=== PATIENT | male | born 1960 | race Asian ===

== ENCOUNTER 2019-05-25 23:55 | Inpatient (IN) | payer MEDICAID ==
[~2019-05-25] VITALS: Ht 165.1 cm; Wt 86.4 kg
[~2019-05-25 23:55] MED LIST: ATOR20TA66 PO; FENO48TA15 PO; METF500T PO; MIRT30TA8 PO; PIOG15TA8 PO; RISP2TAB44 PO; ZES10T PO
[2019-05-26] VITALS (14 sets, daily range): BP systolic 106–136; BP diastolic 55–75
[2019-05-26 00:30] LABS: BASOPHILS % (AUTO) 0.1 % (0-1); EOSINOPHILS % (AUTO) 0.1 % (0-6); HEMATOCRIT 24.7 % (42.0-52.0); HEMOGLOBIN 8.1 g/dl (14.0-17.9); LYMPHOCYTES # (AUTO) 2.8 X10'3 (1.1-4.8); LYMPHOCYTES % (AUTO) 14.8 % (21-51); MEAN CORPUSCULAR HGB CONC 32.9 g/dL (33.0-36.5); MEAN PLATELET VOLUME 7.5 FL (7.4-10.4); MONOCYTES # (AUTO) 0.5 X10'3 (0-0.9); MONOCYTES % (AUTO) 2.6 % (2-12); NEUTROPHILS # (AUTO) 15.4 X10'3 (1.8-7.7); NEUTROPHILS % (AUTO) 82.4 % (42-75); PLATELET COUNT 185 X10'3 (140-440); RED BLOOD COUNT 2.71 X10'6 (4.70-6.10); RED CELL DISTRIBUTION WIDTH 14.2 % (11.5-14.5); WHITE BLOOD COUNT 18.6 X10'3 (4.5-11.0)
[2019-05-26 00:43] LABS: ALANINE AMINOTRANSFERASE 44 U/L (12-78); ALBUMIN 2.5 G/DL (3.4-5.0); ALKALINE PHOSPHATASE 53 IU/L (46-116); ANION GAP 9 (8-16); ASPARTATE AMINO TRANSFERASE 14 U/L (10-37); BILIRUBIN,TOTAL 0.4 MG/DL (0.1-1.0); BLOOD UREA NITROGEN 41 MG/DL (7-18); BUN/CREATININE RATIO 33.6 (5.4-32.0); CHLORIDE 109 MMOL/L (99-107); CREATININE 1.22 MG/DL (0.60-1.10); GLUCOSE 381 MG/DL (70-104); LIPASE 129 U/L (73-393); POTASSIUM 4.7 MMOL/L (3.5-5.1); SODIUM 140 MMOL/L (135-145); TOTAL CARBON DIOXIDE 21.7 MMOL/L (24-32); eGFR 61 ML/MIN
[2019-05-26] MEDS ORDERED: TEMA15CA5 PO (00:52)
[2019-05-26] MEDS ORDERED: METF500T PO (00:52)
[2019-05-26] MEDS ORDERED: FERR325T32 PO ×2 (00:52→11:34)
[2019-05-26 01:14] LABS: CLARITY,URINE CLEAR (Clear); COLOR,URINE YELLOW (Yellow); GLUCOSE, URINE 500 mg/dl (Neg); KETONES,URINE NEGATIVE (Neg); LEUKOCYTE ESTERASE ,URINE NEGATIVE (Neg); NITRITES, URINE NEGATIVE (Neg); OCCULT BLOOD,URINE NEGATIVE (Neg); PH,URINE 5.5 (4.8-8.0); PROTEIN,URINE TRACE mg/dl (Neg); UROBILINOGEN,URINE 0.2 E.U/dL (0.2-1.0)
[2019-05-26] MEDS ORDERED: morphine 4 MG/ML inj SYRINge IV ONE (01:15)
[2019-05-26] MEDS ORDERED: ondansetron/PF 4mg/2ml inj IV ONE (01:15)
[2019-05-26] MEDS ORDERED: normal saline 1000ML IV soln IVB ONE (01:15)
[2019-05-26] MEDS ORDERED: tranexamic acid 100mg/ml inj. IV ONE (01:15)
[2019-05-26] MEDS ORDERED: pantoprazole 40 MG vial IV ONE (01:15)
[2019-05-26 01:16] LABS: UA COLLECTION TYPE URINAL
[2019-05-26 01:19] LABS: BACTERIA,URINE 1+ /HPF (Neg); MUCUS STRANDS FEW /LPF (Neg); RBC,URINE NONE SEEN /HPF (0-2); SQUAMOUS EPITHELIAL CELL,UR FEW /LPF (FEW)
[2019-05-26 01:20] LABS: FINE GRANULAR CAST 0-3 /LPF (NEGATIVE); HYALINE CASTS 0-3 /LPF (NEGATIVE)
[2019-05-26 01:35] LABS: MAGNESIUM 1.8 MG/DL (1.5-2.4); TROPONIN I < 0.04 NG/ML (0.0-0.05)
[2019-05-26] MEDS ORDERED: ondansetron/PF 4mg/2ml inj IV PRN (01:50)
[2019-05-26] MEDS ORDERED: potassium Cl 20 mEq SR tablet PO PRN (01:50)
[2019-05-26] MEDS ORDERED: acetaminophen 325mg tablet PO PRN ×2 (01:50)
[2019-05-26] MEDS ORDERED: magnesium Cl slow-release 64mg tablet PO PRN (01:50)
[2019-05-26] MEDS ORDERED: magnesium 4gm in 100ml NS 100 ML IV PRN (01:50)
[2019-05-26] MEDS ORDERED: potassium CL 10mEq/100ml bag 100 ML IV PRN ×2 (01:50)
[2019-05-26] MEDS ORDERED: mag hydrox/Alum hydrox/simeth 30ml oral suspension PO PRN (01:50)
[2019-05-26] MEDS ORDERED: MESSAGE TO PHARMACY PO ONE (01:50)
[2019-05-26] MEDS ORDERED: dextrose 50%-water 50ml dispensing syringe IV PRN ×2 (01:50)
[2019-05-26] MEDS ORDERED: glucagon, human recombinant 1mg kit SUBCUT PRN (01:50)
[2019-05-26] MEDS ORDERED: magnesium hydroxide 30ml (MOM) UD suspension PO PRN (01:50)
[2019-05-26] MEDS ORDERED: magnesium 2GM in 50ml NS 50 ML IV PRN (01:50)
[2019-05-26] MEDS ORDERED: dextrose ORAL solution 15 GM/59 ML bottle PO PRN ×2 (01:50)
[2019-05-26] MEDS ORDERED: insulin glargine (Lantus) pen - multi-dose SQ STA (02:01)
--- NOTE | 2019-05-26 02:02 | NUR ---
RECEIVED VERBAL ORDER FROM DR PELAEZ. CHECK PT BLOOD SUGAR AND TX WITH INSULIN LISPRO PER PROTOCOL AND GIVE X1 DOSE OF LANTUS INSULIN 6 UNITS SQ NOW.
[2019-05-26 02:06] LABS: HEMOGLOBIN A1C 9.4 % (4.5-6.2)
[2019-05-26 02:40] LABS: PARTIAL THROMBOPLASTIN TIME 21 SECONDS (22-32)
[2019-05-26] MEDS: insulin Lispro (HumaLOG) vial - multi-dose SQ SCH ×3 (02:47→19:28)
[2019-05-26] MEDS ORDERED: HYDROcodone/acetaminophen 5mg/325mg tablet PO PRN (02:55)
[2019-05-26] MEDS ORDERED: HYDROcodone/acetaminophen 10/325mg tab PO PRN (02:55)
[2019-05-26] MEDS ORDERED: morphine 2 MG/ML inj. syringe IV PRN ×2 (02:55)
--- NOTE | 2019-05-26 04:00 | NUR ---
INCREASED BLOOD TRANSFUSION RATE TO 125ML/HOUR
--- NOTE | 2019-05-26 05:02 | NUR ---
INCREASED BLOOD TRANSFUSION RATE TO 225ML/HOUR
--- NOTE | 2019-05-26 06:05 | NUR ---
Patient in room . I have received report from Meme CUEVAS and had the opportunity to ask questions and assume patient care.
--- NOTE | 2019-05-26 06:20 | NUR ---
Patient arrived on unit from ED stable. Denies chest pain. C/O low back pain which is chronic. Tele box leads placed and patient oriented to unit. at bedside.
[2019-05-26] MEDS: pantoprazole 40MG/NS 100ML BAG 100 ML IV SCH ×3 (07:58→21:28)
[2019-05-26] MEDS: K and/or MAG REPLACEMENT MC SCH (08:00)
[2019-05-26 08:33] LABS: HEMATOCRIT 28.2 % (42.0-52.0); HEMOGLOBIN 9.3 g/dl (14.0-17.9); MEAN CORPUSCULAR HEMOGLOBIN 29.5 PG (27.0-31.0); MEAN CORPUSCULAR HGB CONC 32.9 g/dL (33.0-36.5); MEAN CORPUSCULAR VOLUME 89.4 FL (78-98); MEAN PLATELET VOLUME 7.4 FL (7.4-10.4); PLATELET COUNT 173 X10'3 (140-440); RED BLOOD COUNT 3.15 X10'6 (4.70-6.10); RED CELL DISTRIBUTION WIDTH 14.2 % (11.5-14.5); WHITE BLOOD COUNT 18.3 X10'3 (4.5-11.0)
[2019-05-26] MEDS ORDERED: FENO160T13 PO (11:34)
[2019-05-26] MEDS ORDERED: METF-438 PO (11:34)
[2019-05-26] MEDS ORDERED: LISI-600 PO (11:34)
[2019-05-26] MEDS ORDERED: INSU100I31 SQ (11:34)
[2019-05-26] MEDS ORDERED: PIOG45TA65 PO (11:34)
[2019-05-26] MEDS ORDERED: risperiDONE 0.5mg tablet PO PRN (11:45)
[2019-05-26] MEDS: normal saline 1000ml 1,000 ML IV SCH (11:53)
[2019-05-26] MEDS ORDERED: LIDOcaine Viscous 15ml cup ONE (13:06)
[2019-05-26] MEDS ORDERED: MIDAZolam 5mg/5ml vial ONE (13:06)
[2019-05-26] MEDS ORDERED: fentaNYL/PF 50MCG/1 ML 2ML syringe ONE (13:06)
--- NOTE | 2019-05-26 16:15 | NUR ---
DM consult: Pt with A1c 9.4. Attempted visit with pt at bedside however pt not in room. Patient's at bedside reports her and the pt speak limited Algerian however have daughters that will be visiting that do speak Algerian. Written DM ed with referral to outpatient DM class and RD contact information provided to SO. Encouraged SO to reach out to RD team if her or the pt have any questions regarding DM management. Noted that patient previously with A1c 11.0 in February 2018. Pt admit with acute GIB, currently NPO. LBM 05/26. Will continue to follow. Recommendations: 1) Advance to heart healthy CHO controlled diet as medically indicated 2) Monitor need for f/u verbal DM education 3) Wt per rx Addendum: 05/26/19 at [address] Amended: Links added.
--- NOTE | 2019-05-26 17:00 | NUR ---
1300 troponin draw missed due to patient off unit for procedure. Pt back on unit at this time, troponin to be drawn now.
--- NOTE | 2019-05-26 18:00 | NUR ---
Problems reprioritized. Patient report given, questions answered & plan of care reviewed with Adair RN.
--- NOTE | 2019-05-26 18:20 | NUR ---
Patient in room PCU 3012. I have received report from Emili CUEVAS and had the opportunity to ask questions and assume patient care.
[2019-05-26] MEDS ORDERED: risperiDONE 2mg tablet PO SCH (21:00)
[2019-05-26] MEDS: temazepam 15mg capsule PO SCH (21:26)
[2019-05-26] MEDS: mirtazapine 15mg tablet PO SCH (21:26)
[2019-05-26] MEDS: risperiDONE 0.5mg tablet PO SCH (21:27)
[2019-05-26] MEDS: atorvastatin 20mg tablet PO SCH (21:27)
[2019-05-26] MEDS: insulin glargine (Lantus) pen - multi-dose SQ SCH (21:41)
--- NOTE | 2019-05-26 22:50 | NUR ---
Diet changes per report at change of shift pt was back from lab and was allowed clear liquid diet with no reds. orders still showed NPO however pt had eaten a dinner late tray (clear liquid with no reds) and has tolerated it well.
[2019-05-27] VITALS (10 sets, daily range): BP systolic 102–141; BP diastolic 53–74
[2019-05-27] MEDS: pantoprazole 40MG/NS 100ML BAG 100 ML IV SCH ×6 (02:34→19:12)
[2019-05-27] MEDS: normal saline 1000ml 1,000 ML IV SCH ×2 (05:39→14:00)
--- NOTE | 2019-05-27 06:25 | NUR ---
Patient in room PCU 3012. I have received report from MASON Borrero and had the opportunity to ask questions and assume patient care.
--- NOTE | 2019-05-27 06:31 | NUR ---
Problems reprioritized. Patient report given, questions answered & plan of care reviewed with Thelma Novoa RN.
[2019-05-27 06:39] LABS: BASOPHILS # (AUTO) 0.1 X10'3 (0-0.2); BASOPHILS % (AUTO) 0.4 % (0-1); EOSINOPHILS # (AUTO) 0.1 X10'3 (0-0.9); EOSINOPHILS % (AUTO) 0.7 % (0-6); LYMPHOCYTES # (AUTO) 3.1 X10'3 (1.1-4.8); LYMPHOCYTES % (AUTO) 25.2 % (21-51); MEAN CORPUSCULAR HEMOGLOBIN 29.7 PG (27.0-31.0); MEAN CORPUSCULAR VOLUME 90.1 FL (78-98); MONOCYTES # (AUTO) 0.9 X10'3 (0-0.9); MONOCYTES % (AUTO) 7.2 % (2-12); NEUTROPHILS # (AUTO) 8.2 X10'3 (1.8-7.7); NEUTROPHILS % (AUTO) 66.5 % (42-75); PLATELET COUNT 145 X10'3 (140-440); RED BLOOD COUNT 2.12 X10'6 (4.70-6.10); RED CELL DISTRIBUTION WIDTH 14.3 % (11.5-14.5); WHITE BLOOD COUNT 12.4 X10'3 (4.5-11.0)
[2019-05-27 06:46] LABS: ALBUMIN 2.1 G/DL (3.4-5.0); ANION GAP 3 (8-16); BLOOD UREA NITROGEN 23 MG/DL (7-18); BUN/CREATININE RATIO 24.2 (5.4-32.0); CALCIUM 7.5 MG/DL (8.5-10.1); CHLORIDE 115 MMOL/L (99-107); CREATININE 0.95 MG/DL (0.60-1.10); GLUCOSE 114 MG/DL (70-104); HEMATOCRIT 19.1 % (42.0-52.0); HEMOGLOBIN 6.3 g/dl (14.0-17.9); MAGNESIUM 1.9 MG/DL (1.5-2.4); POTASSIUM 3.9 MMOL/L (3.5-5.1); SODIUM 146 MMOL/L (135-145); TOTAL CARBON DIOXIDE 27.8 MMOL/L (24-32); eGFR 81 ML/MIN
[2019-05-27] MEDS: K and/or MAG REPLACEMENT MC SCH (07:13)
[2019-05-27] MEDS: lisinopril 20mg tablet PO SCH (08:00)
--- NOTE | 2019-05-27 08:30 | NUR ---
Dr Sosa notified of EH=865/58. Lisinopril held.
[2019-05-27] MEDS: fenofibrate 145mg tablet PO SCH (08:45)
[2019-05-27] MEDS: ferrous sulfate 325mg tablet PO SCH (08:45)
[2019-05-27] MEDS: insulin Lispro (HumaLOG) vial - multi-dose SQ SCH ×2 (08:51→13:16)
[2019-05-27 16:49] LABS: HEMOGLOBIN 7.3 g/dl (14.0-17.9); MEAN CORPUSCULAR HEMOGLOBIN 30.1 PG (27.0-31.0); MEAN CORPUSCULAR HGB CONC 33.2 g/dL (33.0-36.5); MEAN CORPUSCULAR VOLUME 90.6 FL (78-98); MEAN PLATELET VOLUME 7.5 FL (7.4-10.4); PLATELET COUNT 139 X10'3 (140-440); RED BLOOD COUNT 2.43 X10'6 (4.70-6.10); RED CELL DISTRIBUTION WIDTH 14.1 % (11.5-14.5); WHITE BLOOD COUNT 15.2 X10'3 (4.5-11.0)
[2019-05-27] MEDS: dextrose 5%-1/4 normal saline 1,000 ML IV SCH (17:55)
--- NOTE | 2019-05-27 18:50 | NUR ---
Problems reprioritized. Patient report given, questions answered & plan of care reviewed with MASON Akbar.
--- NOTE | 2019-05-27 19:04 | NUR ---
Patient in room PCU 3012. I have received report from Thelma CUEVAS and had the opportunity to ask questions and assume patient care.
[2019-05-27] MEDS: temazepam 15mg capsule PO SCH (20:56)
[2019-05-27] MEDS: mirtazapine 15mg tablet PO SCH (20:57)
[2019-05-27] MEDS: atorvastatin 20mg tablet PO SCH (20:57)
[2019-05-27] MEDS: risperiDONE 0.5mg tablet PO SCH (20:58)
[2019-05-27] MEDS: insulin glargine (Lantus) pen - multi-dose SQ SCH (21:58)
[2019-05-28] MEDS: pantoprazole 40MG/NS 100ML BAG 100 ML IV SCH ×3 (01:18→11:15)
[2019-05-28 02:00] VITALS: BP 140/73
[2019-05-28] MEDS: dextrose 5%-1/4 normal saline 1,000 ML IV SCH (03:50)
[2019-05-28 06:00] VITALS: BP 128/74
[2019-05-28 06:01] LABS: BASOPHILS % (AUTO) 0.2 % (0-1); EOSINOPHILS # (AUTO) 0.1 X10'3 (0-0.9); EOSINOPHILS % (AUTO) 0.8 % (0-6); HEMOGLOBIN 7.1 g/dl (14.0-17.9); LYMPHOCYTES # (AUTO) 2.5 X10'3 (1.1-4.8); MEAN CORPUSCULAR HEMOGLOBIN 30.8 PG (27.0-31.0); MEAN CORPUSCULAR VOLUME 90.6 FL (78-98); MEAN PLATELET VOLUME 7.1 FL (7.4-10.4); MONOCYTES # (AUTO) 0.9 X10'3 (0-0.9); MONOCYTES % (AUTO) 8.6 % (2-12); NEUTROPHILS # (AUTO) 7.4 X10'3 (1.8-7.7); NEUTROPHILS % (AUTO) 67.4 % (42-75); PLATELET COUNT 145 X10'3 (140-440); RED BLOOD COUNT 2.31 X10'6 (4.70-6.10); WHITE BLOOD COUNT 10.9 X10'3 (4.5-11.0)
[2019-05-28 06:09] LABS: HEMATOCRIT 20.9 % (42.0-52.0)
[2019-05-28 06:28] LABS: ALBUMIN 2.1 G/DL (3.4-5.0); ANION GAP 6 (8-16); BLOOD UREA NITROGEN 6 MG/DL (7-18); BUN/CREATININE RATIO 7.6 (5.4-32.0); CALCIUM 7.5 MG/DL (8.5-10.1); CHLORIDE 112 MMOL/L (99-107); CREATININE 0.79 MG/DL (0.60-1.10); GLUCOSE 101 MG/DL (70-104); MAGNESIUM 1.8 MG/DL (1.5-2.4); POTASSIUM 3.4 MMOL/L (3.5-5.1); SODIUM 144 MMOL/L (135-145); TOTAL CARBON DIOXIDE 25.7 MMOL/L (24-32); eGFR > 90 ML/MIN
--- NOTE | 2019-05-28 06:50 | NUR ---
Lab called w/critical value; H/H 7.0/20.9. Reported to Melissa CUEVAS day shift during am report, introduction to pt, questions answered. Pt observed lying in bed washing face, in good spirits, asymptomatic.
--- NOTE | 2019-05-28 07:19 | NUR ---
paged pt's MD salamanca. critical H/H PAGER ID: [phone] MESSAGE: Mulu Becerra in room U 3012C: H/H 7.1.9 He's asymptomatic. VSS. IVF infusing @ 100. Saurabh Torres RN
[2019-05-28] MEDS: lisinopril 20mg tablet PO SCH (07:26)
[2019-05-28] MEDS: ferrous sulfate 325mg tablet PO SCH (07:26)
[2019-05-28] MEDS: potassium Cl 20 mEq SR tablet PO PRN ×3 (07:26→16:14)
[2019-05-28] MEDS: fenofibrate 145mg tablet PO SCH (07:30)
[2019-05-28] MEDS: K and/or MAG REPLACEMENT MC SCH (07:31)
[2019-05-28 11:00] VITALS: BP 109/64
--- NOTE | 2019-05-28 14:50 | NUR ---
Av blanc. Visitors at bedside.
[2019-05-28 15:00] VITALS: BP 129/72
--- NOTE | 2019-05-28 18:16 | NUR ---
Problems reprioritized. Patient report given, questions answered & plan of care reviewed with nima CUEVAS. Addendum: 05/28/19 at 1816 by Melissa Spring RN Amended: Links added.
--- NOTE | 2019-05-28 18:35 | NUR ---
Patient in room PCU 3012. I have received report from Melissa CUEVAS and had the opportunity to ask questions and assume patient care.
[2019-05-28 19:00] VITALS: BP 136/67
[2019-05-28] MEDS: mirtazapine 15mg tablet PO SCH (20:10)
[2019-05-28] MEDS: atorvastatin 20mg tablet PO SCH (20:11)
[2019-05-28] MEDS: temazepam 15mg capsule PO SCH (20:11)
[2019-05-28] MEDS: risperiDONE 0.5mg tablet PO SCH (20:11)
[2019-05-28] MEDS: pantoprazole 40mg Tablet.DR PO SCH (20:11)
--- NOTE | 2019-05-28 20:37 | NUR ---
Patient fell of insulin protocol today and was not treated with any insulin all day so will not give Lantus tonight. Night time blood glucose was 132 and will wait to see if patient requalifies to meet the protocol again.
[2019-05-28] MEDS: insulin glargine (Lantus) pen - multi-dose SQ SCH (20:40)
[2019-05-28 22:00] VITALS: BP 113/64
[2019-05-29 02:00] VITALS: BP 125/78
--- NOTE | 2019-05-29 05:53 | NUR ---
Orientee documentation: I have reviewed and agree with all interventions, assessments performed and documented by Karina CUEVAS. Orientee Medication Administration: For this medication-pass time frame, all medication were reviewed, dispensed, administered and documented per hospital policy by Karina CUEVAS.
[2019-05-29 06:00] VITALS: BP 122/68
--- NOTE | 2019-05-29 06:19 | NUR ---
Problems reprioritized. Patient report given, questions answered & plan of care reviewed with Misael RN and Migdalia RN.
--- NOTE | 2019-05-29 06:45 | NUR ---
Patient in room PCU 3012. I have received report from MARCO RN and had the opportunity to ask questions and assume patient care.
[2019-05-29 07:02] LABS: BASOPHILS % (AUTO) 0.1 % (0-1); EOSINOPHILS # (AUTO) 0.1 X10'3 (0-0.9); HEMOGLOBIN 7.3 g/dl (14.0-17.9); LYMPHOCYTES # (AUTO) 2.2 X10'3 (1.1-4.8); LYMPHOCYTES % (AUTO) 24.2 % (21-51); MEAN CORPUSCULAR HEMOGLOBIN 30.5 PG (27.0-31.0); MEAN CORPUSCULAR HGB CONC 33.7 g/dL (33.0-36.5); MEAN CORPUSCULAR VOLUME 90.4 FL (78-98); MEAN PLATELET VOLUME 6.6 FL (7.4-10.4); MONOCYTES # (AUTO) 0.8 X10'3 (0-0.9); MONOCYTES % (AUTO) 8.5 % (2-12); NEUTROPHILS # (AUTO) 6.1 X10'3 (1.8-7.7); NEUTROPHILS % (AUTO) 66.2 % (42-75); PLATELET COUNT 178 X10'3 (140-440); WHITE BLOOD COUNT 9.1 X10'3 (4.5-11.0)
[2019-05-29 07:15] LABS: HEMATOCRIT 21.7 % (42.0-52.0)
--- NOTE | 2019-05-29 07:22 | NUR ---
PAGER ID: [phone] MESSAGE: DR. CLIFFORD, 6352C/VERONIQUE, IMPROVED BUT CRITICAL HCT 21.7, HGB 7.3. PREVIOUS [id number]. TY DARRYL [id number].
[2019-05-29 07:27] LABS: ALBUMIN 2.2 G/DL (3.4-5.0); ANION GAP 7 (8-16); BLOOD UREA NITROGEN 8 MG/DL (7-18); BUN/CREATININE RATIO 9.1 (5.4-32.0); CALCIUM 8.2 MG/DL (8.5-10.1); CHLORIDE 111 MMOL/L (99-107); CREATININE 0.88 MG/DL (0.60-1.10); GLUCOSE 113 MG/DL (70-104); MAGNESIUM 1.9 MG/DL (1.5-2.4); POTASSIUM 3.8 MMOL/L (3.5-5.1); SODIUM 144 MMOL/L (135-145); TOTAL CARBON DIOXIDE 25.6 MMOL/L (24-32); eGFR 89 ML/MIN
[2019-05-29] MEDS: K and/or MAG REPLACEMENT MC SCH (08:00)
[2019-05-29] MEDS: pantoprazole 40mg Tablet.DR PO SCH (09:08)
[2019-05-29] MEDS: ferrous sulfate 325mg tablet PO SCH (09:08)
[2019-05-29] MEDS: fenofibrate 145mg tablet PO SCH (09:11)
[2019-05-29] MEDS: lisinopril 20mg tablet PO SCH (09:11)
[2019-05-29 11:00] VITALS: BP 120/70
[2019-05-29] MEDS ORDERED: PANT-47 PO (11:16)
--- NOTE | 2019-05-29 12:30 | NUR ---
OFFSET PRESSMANradiation engineer: I have reviewed and agree with all interventions, assessments performed and documented by MASON BYRNE.
--- NOTE | 2019-05-29 14:00 | NUR ---
COMPRESSOR STATION ENGINEERsurgical technologist: I have reviewed and agree with all interventions, assessments performed and documented by MASON GONZALEZ.
== END 2019-05-29 12:30 | disposition home or self-care (01) | DRG 241 ==
LOC: ER 23:55 → PCU 3S 05-26 06:47
PROVIDERS: ADMIT Hospitalist; ATTEND Family Medicine
PROC: 0DB68ZX Excision of Stomach, Via Natural or Artificial Opening Endoscopic, Diagnostic (ICD-10-PCS; principal; 2019-05-26)
PROC: 30233N1 Transfusion of Nonautologous Red Blood Cells into Peripheral Vein, Percutaneous Approach (ICD-10-PCS; 2019-05-26)
PROC: 30233N1 Transfusion of Nonautologous Red Blood Cells into Peripheral Vein, Percutaneous Approach (ICD-10-PCS; 2019-05-27)
DX: K29.71 Gastritis, unspecified, with bleeding (principal); N17.9 Acute kidney failure, unspecified; E87.0 Hyperosmolality and hypernatremia; E11.65 Type 2 diabetes mellitus with hyperglycemia; D62 Acute posthemorrhagic anemia; K25.4 Chronic or unspecified gastric ulcer with hemorrhage; E86.0 Dehydration; E78.00 Pure hypercholesterolemia, unspecified; I10 Essential (primary) hypertension; K44.9 Diaphragmatic hernia without obstruction or gangrene; K20.9 Esophagitis, unspecified; K21.9 Gastro-esophageal reflux disease without esophagitis; N28.9 Disorder of kidney and ureter, unspecified; D72.829 Elevated white blood cell count, unspecified; R00.0 Tachycardia, unspecified; R19.7 Diarrhea, unspecified; Z87.11 Personal history of peptic ulcer disease; Z79.84 Long term (current) use of oral hypoglycemic drugs; Z98.0 Intestinal bypass and anastomosis status; Z79.899 Other long term (current) drug therapy
CPT/HCPCS: 36415; 43239; 71045; 80048; 80053; 81001; 82140; 82948; 83036; 83690; 83735; 84484; 85025; 85027; 85610; 85730; 86885; 86900; 86901; 86920; 87081; 87088; 93005; 96365; 96375; 99152; 99153; 99291; A4620; C9113; G0378; J1815; J2250; J2270; J2405; J3010; J7030; J7040; P9016

== ENCOUNTER 2019-05-30 13:36 | Inpatient (IN) | payer MEDICAID ==
[2019-05-30] VITALS (14 sets, daily range): BP systolic 102–132; BP diastolic 53–82
[~2019-05-30] VITALS: Ht 162.6 cm; Wt 31.2 kg
[~2019-05-30 13:36] MED LIST changes: +FENO160T13 PO; -FENO48TA15 PO; +FERR325T32 PO; +INSU100I31 SQ; +LISI-600 PO; +METF-438 PO; -METF500T PO; +PANT-47 PO; -PIOG15TA8 PO; +PIOG45TA65 PO; +TEMA15CA5 PO; -ZES10T PO
[2019-05-30 14:56] LABS: BASOPHILS % (AUTO) 0.1 % (0-1); EOSINOPHILS # (AUTO) 0.1 X10'3 (0-0.9); EOSINOPHILS % (AUTO) 0.6 % (0-6); MEAN CORPUSCULAR HEMOGLOBIN 29.6 PG (27.0-31.0); MEAN CORPUSCULAR HGB CONC 32.1 g/dL (33.0-36.5); MEAN CORPUSCULAR VOLUME 92.1 FL (78-98); MEAN PLATELET VOLUME 7.2 FL (7.4-10.4); MONOCYTES # (AUTO) 1.3 X10'3 (0-0.9); MONOCYTES % (AUTO) 8.3 % (2-12); NEUTROPHILS # (AUTO) 11.4 X10'3 (1.8-7.7); PLATELET COUNT 236 X10'3 (140-440); RED CELL DISTRIBUTION WIDTH 14.8 % (11.5-14.5); WHITE BLOOD COUNT 15.8 X10'3 (4.5-11.0)
[2019-05-30 15:01] LABS: HEMATOCRIT 18.4 % (42.0-52.0); HEMOGLOBIN 5.9 g/dl (14.0-17.9)
[2019-05-30 15:05] LABS: ALANINE AMINOTRANSFERASE 28 U/L (12-78); ALBUMIN 2.2 G/DL (3.4-5.0); ALBUMIN/GLOBULIN RATIO 0.7 (1.1-1.5); ALKALINE PHOSPHATASE 44 IU/L (46-116); ANION GAP 9 (8-16); ASPARTATE AMINO TRANSFERASE 18 U/L (10-37); BILIRUBIN,TOTAL 0.2 MG/DL (0.1-1.0); BLOOD UREA NITROGEN 23 MG/DL (7-18); BUN/CREATININE RATIO 23.7 (5.4-32.0); CALCIUM 8.6 MG/DL (8.5-10.1); CHLORIDE 109 MMOL/L (99-107); CREATININE 0.97 MG/DL (0.60-1.10); GLUCOSE 191 MG/DL (70-104); POTASSIUM 4.3 MMOL/L (3.5-5.1); SODIUM 141 MMOL/L (135-145); TOTAL PROTEIN 5.2 G/DL (6.4-8.2); eGFR 79 ML/MIN
[2019-05-30] MEDS ORDERED: normal saline 1000ML IV soln IVB ONE (15:05)
[2019-05-30] MEDS ORDERED: pantoprazole 40 MG vial IV ONE (15:05)
[2019-05-30 15:11] LABS: PARTIAL THROMBOPLASTIN TIME 26 SECONDS (22-32)
[2019-05-30 15:17] LABS: CLARITY,URINE CLEAR (Clear); COLOR,URINE YELLOW (Yellow); GLUCOSE, URINE NEGATIVE (Neg); KETONES,URINE NEGATIVE (Neg); LEUKOCYTE ESTERASE ,URINE NEGATIVE (Neg); NITRITES, URINE NEGATIVE (Neg); OCCULT BLOOD,URINE NEGATIVE (Neg); PROTEIN,URINE NEGATIVE (Neg)
[2019-05-30 15:18] LABS: UA COLLECTION TYPE CLN CATCH MIDSTREAM
[2019-05-30 15:28] LABS: NUCLEATED RED BLOOD CELLS 14 /100WBC (0-0); TOTAL CELLS COUNTED 100
[2019-05-30 15:30] LABS: PLATELET ESTIMATE NORMAL
[2019-05-30 15:31] LABS: ANISOCYTOSIS 1+; POLYCHROMASIA 1+
[2019-05-30] MEDS ORDERED: risperiDONE 0.5mg tablet PO PRN (16:50)
[2019-05-30] MEDS ORDERED: fentaNYL/PF 50MCG/1 ML 2ML syringe ONE (16:54)
[2019-05-30] MEDS ORDERED: MIDAZolam 5mg/5ml vial ONE ×2 (16:54→16:55)
[2019-05-30] MEDS ORDERED: LIDOcaine Viscous 15ml cup ONE (16:55)
[2019-05-30] MEDS ORDERED: potassium CL 10mEq/100ml bag 100 ML IV PRN ×2 (17:00)
[2019-05-30] MEDS ORDERED: MESSAGE TO PHARMACY PO ONE (17:00)
[2019-05-30] MEDS ORDERED: magnesium Cl slow-release 64mg tablet PO PRN (17:00)
[2019-05-30] MEDS ORDERED: dextrose ORAL solution 15 GM/59 ML bottle PO PRN ×2 (17:00)
[2019-05-30] MEDS ORDERED: bisacodyl 10mg suppository rectal RC PRN (17:00)
[2019-05-30] MEDS ORDERED: potassium Cl 20 mEq SR tablet PO PRN ×2 (17:00)
[2019-05-30] MEDS ORDERED: dextrose 50%-water 50ml dispensing syringe IV PRN ×2 (17:00)
[2019-05-30] MEDS ORDERED: magnesium 4gm in 100ml NS 100 ML IV PRN (17:00)
[2019-05-30] MEDS ORDERED: magnesium 2GM in 50ml NS 50 ML IV PRN (17:00)
[2019-05-30] MEDS ORDERED: acetaminophen 325mg tablet PO PRN ×2 (17:00→20:00)
[2019-05-30] MEDS ORDERED: HYDROmorphone 1 mg/ml syringe IV PRN (17:00)
[2019-05-30] MEDS ORDERED: glucagon, human recombinant 1mg kit SUBCUT PRN (17:00)
[2019-05-30] MEDS ORDERED: ondansetron/PF 4mg/2ml inj IV PRN (17:00)
[2019-05-30] MEDS ORDERED: insulin Lispro (HumaLOG) vial - multi-dose SQ SCH (17:00)
[2019-05-30] MEDS ORDERED: HYDROmorphone inj. 0.5 MG/0.5 ML DISP.SYRIN IV PRN (17:00)
[2019-05-30] MEDS ORDERED: epiNEPHrine 0.1mg/ml 10ml syringe ONE (18:03)
--- NOTE | 2019-05-30 18:48 | NUR ---
PT BACK FROM GI LAB, RECEIVED REPORT FROM GI AUDITOR SUPERVISOR
--- NOTE | 2019-05-30 19:16 | NUR ---
SHELBY RN, GI LAB, FINISHED BLOOD TRANSFUSION AND PAPERCHARTED TRANSFUSION VITALS. WILL ADD TO CHART
[2019-05-30] MEDS: pantoprazole 40 MG vial IV SCH (20:01)
--- NOTE | 2019-05-30 21:17 | NUR ---
Patient in room CICU 2014. I have received report from Agatha CUEVAS and had the opportunity to ask questions and assume patient care.
[2019-05-30] MEDS: insulin glargine (Lantus) pen - multi-dose SQ SCH (21:44)
[2019-05-30] MEDS: temazepam 15mg capsule PO SCH (21:44)
[2019-05-30] MEDS: atorvastatin 20mg tablet PO SCH (21:47)
[2019-05-30] MEDS: mirtazapine 15mg tablet PO SCH (21:47)
[2019-05-30 22:34] LABS: HEMATOCRIT 24.3 % (42.0-52.0); MEAN CORPUSCULAR HEMOGLOBIN 30.4 PG (27.0-31.0); MEAN CORPUSCULAR VOLUME 92.1 FL (78-98); MEAN PLATELET VOLUME 6.8 FL (7.4-10.4); PLATELET COUNT 196 X10'3 (140-440); RED BLOOD COUNT 2.64 X10'6 (4.70-6.10); RED CELL DISTRIBUTION WIDTH 14.3 % (11.5-14.5); WHITE BLOOD COUNT 15.8 X10'3 (4.5-11.0)
[2019-05-31] VITALS (32 sets, daily range): BP systolic 103–137; BP diastolic 64–76
[2019-05-31 02:52] LABS: BASOPHILS % (AUTO) 0.1 % (0-1); EOSINOPHILS % (AUTO) 0.2 % (0-6); HEMATOCRIT 23.6 % (42.0-52.0); HEMOGLOBIN 7.7 g/dl (14.0-17.9); LYMPHOCYTES # (AUTO) 3.3 X10'3 (1.1-4.8); LYMPHOCYTES % (AUTO) 21.7 % (21-51); MEAN CORPUSCULAR HGB CONC 32.8 g/dL (33.0-36.5); MEAN CORPUSCULAR VOLUME 91.5 FL (78-98); MONOCYTES # (AUTO) 1.3 X10'3 (0-0.9); MONOCYTES % (AUTO) 8.6 % (2-12); NEUTROPHILS # (AUTO) 10.7 X10'3 (1.8-7.7); NEUTROPHILS % (AUTO) 69.4 % (42-75); PLATELET COUNT 194 X10'3 (140-440); RED BLOOD COUNT 2.58 X10'6 (4.70-6.10); RED CELL DISTRIBUTION WIDTH 13.9 % (11.5-14.5); WHITE BLOOD COUNT 15.4 X10'3 (4.5-11.0)
[2019-05-31 03:09] LABS: ALANINE AMINOTRANSFERASE 25 U/L (12-78); ALBUMIN 2.1 G/DL (3.4-5.0); ALBUMIN/GLOBULIN RATIO 0.8 (1.1-1.5); ALKALINE PHOSPHATASE 39 IU/L (46-116); ANION GAP 7 (8-16); ASPARTATE AMINO TRANSFERASE 18 U/L (10-37); BILIRUBIN,TOTAL 0.6 MG/DL (0.1-1.0); BLOOD UREA NITROGEN 20 MG/DL (7-18); CALCIUM 7.6 MG/DL (8.5-10.1); CHLORIDE 111 MMOL/L (99-107); GLUCOSE 167 MG/DL (70-104); MAGNESIUM 1.9 MG/DL (1.5-2.4); POTASSIUM 4.5 MMOL/L (3.5-5.1); SODIUM 141 MMOL/L (135-145); TOTAL CARBON DIOXIDE 23.5 MMOL/L (24-32); TOTAL PROTEIN 4.8 G/DL (6.4-8.2); eGFR 77 ML/MIN
--- NOTE | 2019-05-31 03:59 | NUR ---
Dr. Cortes ordered keep ahead units. in misc. nursing orders, instructions to transfuse 1 unit if hgb <7 and 2 units if <6. Most recent hgb was 7.7. 1 unit currently running.
--- NOTE | 2019-05-31 06:25 | NUR ---
Problems reprioritized. Patient report given, questions answered & plan of care reviewed with Art RN.
--- NOTE | 2019-05-31 06:33 | NUR ---
Lab in room drawing blood
[2019-05-31 06:55] LABS: HEMOGLOBIN 8.7 g/dl (14.0-17.9); MEAN CORPUSCULAR HEMOGLOBIN 30.2 PG (27.0-31.0); MEAN CORPUSCULAR HGB CONC 33.7 g/dL (33.0-36.5); MEAN CORPUSCULAR VOLUME 89.7 FL (78-98); MEAN PLATELET VOLUME 6.7 FL (7.4-10.4); PLATELET COUNT 190 X10'3 (140-440); RED BLOOD COUNT 2.89 X10'6 (4.70-6.10); RED CELL DISTRIBUTION WIDTH 14.1 % (11.5-14.5)
[2019-05-31] MEDS: pantoprazole 40 MG vial IV SCH (07:32)
[2019-05-31] MEDS: K and/or MAG REPLACEMENT MC SCH (07:34)
[2019-05-31 10:26] LABS: HEMATOCRIT 24.1 % (42.0-52.0); HEMOGLOBIN 8.3 g/dl (14.0-17.9); MEAN CORPUSCULAR HEMOGLOBIN 31.1 PG (27.0-31.0); MEAN CORPUSCULAR HGB CONC 34.5 g/dL (33.0-36.5); MEAN CORPUSCULAR VOLUME 90.1 FL (78-98); MEAN PLATELET VOLUME 6.9 FL (7.4-10.4); PLATELET COUNT 185 X10'3 (140-440); RED BLOOD COUNT 2.68 X10'6 (4.70-6.10); RED CELL DISTRIBUTION WIDTH 14.4 % (11.5-14.5); WHITE BLOOD COUNT 12.5 X10'3 (4.5-11.0)
[2019-05-31] MEDS ORDERED: pantoprazole 40MG/NS 100ML BAG 100 ML IV SCH (11:00)
[2019-05-31] MEDS: pantoprazole 40MG/NS 100ML BAG 100 ML IV SCH ×3 (11:59→21:27)
[2019-05-31 14:24] LABS: HEMOGLOBIN 8.1 g/dl (14.0-17.9); MEAN CORPUSCULAR HEMOGLOBIN 30.2 PG (27.0-31.0); MEAN CORPUSCULAR HGB CONC 33.5 g/dL (33.0-36.5); MEAN CORPUSCULAR VOLUME 90.1 FL (78-98); PLATELET COUNT 181 X10'3 (140-440); RED BLOOD COUNT 2.67 X10'6 (4.70-6.10); RED CELL DISTRIBUTION WIDTH 14.2 % (11.5-14.5); WHITE BLOOD COUNT 11.7 X10'3 (4.5-11.0)
--- NOTE | 2019-05-31 14:35 | NUR ---
Report called to Briana in PCU. Pt to transfer to 1346I
--- NOTE | 2019-05-31 15:21 | NUR ---
Pt transferred to [facility], 3025. Pt meds taken and placed in pt specific bin in the [facility].
--- NOTE | 2019-05-31 18:05 | NUR ---
Problems reprioritized. Patient report given, questions answered & plan of care reviewed with MASON Mittal.
--- NOTE | 2019-05-31 18:14 | NUR ---
Patient in room PCU 3025. I have received report from Briana CUEVAS and had the opportunity to ask questions and assume patient care.
[2019-05-31 18:35] LABS: HEMATOCRIT 22.8 % (42.0-52.0); HEMOGLOBIN 7.7 g/dl (14.0-17.9); MEAN CORPUSCULAR HEMOGLOBIN 30.7 PG (27.0-31.0); MEAN CORPUSCULAR HGB CONC 33.9 g/dL (33.0-36.5); MEAN CORPUSCULAR VOLUME 90.4 FL (78-98); MEAN PLATELET VOLUME 6.8 FL (7.4-10.4); PLATELET COUNT 185 X10'3 (140-440); RED BLOOD COUNT 2.52 X10'6 (4.70-6.10); RED CELL DISTRIBUTION WIDTH 14.5 % (11.5-14.5); WHITE BLOOD COUNT 10.9 X10'3 (4.5-11.0)
[2019-05-31] MEDS: mirtazapine 15mg tablet PO SCH (20:41)
[2019-05-31] MEDS: atorvastatin 20mg tablet PO SCH (20:41)
[2019-05-31] MEDS: temazepam 15mg capsule PO SCH (20:41)
[2019-05-31] MEDS: insulin glargine (Lantus) pen - multi-dose SQ SCH (22:05)
[2019-05-31 22:08] LABS: HEMATOCRIT 28.5 % (42.0-52.0); HEMOGLOBIN 9.5 g/dl (14.0-17.9); MEAN CORPUSCULAR HEMOGLOBIN 30.2 PG (27.0-31.0); MEAN CORPUSCULAR HGB CONC 33.5 g/dL (33.0-36.5); MEAN CORPUSCULAR VOLUME 90.1 FL (78-98); MEAN PLATELET VOLUME 6.6 FL (7.4-10.4); PLATELET COUNT 189 X10'3 (140-440); RED BLOOD COUNT 3.16 X10'6 (4.70-6.10); RED CELL DISTRIBUTION WIDTH 14.2 % (11.5-14.5); WHITE BLOOD COUNT 10.9 X10'3 (4.5-11.0)
[2019-06-01 02:00] VITALS: BP 123/72
[2019-06-01 02:16] LABS: BASOPHILS % (AUTO) 0.2 % (0-1); EOSINOPHILS # (AUTO) 0.2 X10'3 (0-0.9); EOSINOPHILS % (AUTO) 2.1 % (0-6); HEMATOCRIT 27.7 % (42.0-52.0); HEMOGLOBIN 9.4 g/dl (14.0-17.9); MEAN CORPUSCULAR HEMOGLOBIN 29.9 PG (27.0-31.0); MEAN CORPUSCULAR HGB CONC 33.8 g/dL (33.0-36.5); MEAN CORPUSCULAR VOLUME 88.5 FL (78-98); MEAN PLATELET VOLUME 6.5 FL (7.4-10.4); MONOCYTES # (AUTO) 0.9 X10'3 (0-0.9); MONOCYTES % (AUTO) 7.5 % (2-12); NEUTROPHILS # (AUTO) 7.4 X10'3 (1.8-7.7); NEUTROPHILS % (AUTO) 64.2 % (42-75); PLATELET COUNT 190 X10'3 (140-440); RED BLOOD COUNT 3.13 X10'6 (4.70-6.10); WHITE BLOOD COUNT 11.5 X10'3 (4.5-11.0)
[2019-06-01 02:18] LABS: ALANINE AMINOTRANSFERASE 21 U/L (12-78); ALBUMIN 2.1 G/DL (3.4-5.0); ALBUMIN/GLOBULIN RATIO 0.8 (1.1-1.5); ALKALINE PHOSPHATASE 40 IU/L (46-116); ANION GAP 8 (8-16); ASPARTATE AMINO TRANSFERASE 16 U/L (10-37); BILIRUBIN,TOTAL 0.5 MG/DL (0.1-1.0); BLOOD UREA NITROGEN 16 MG/DL (7-18); BUN/CREATININE RATIO 19.5 (5.4-32.0); CALCIUM 7.5 MG/DL (8.5-10.1); CHLORIDE 112 MMOL/L (99-107); CREATININE 0.82 MG/DL (0.60-1.10); GLUCOSE 91 MG/DL (70-104); MAGNESIUM 1.9 MG/DL (1.5-2.4); POTASSIUM 3.8 MMOL/L (3.5-5.1); SODIUM 143 MMOL/L (135-145); TOTAL CARBON DIOXIDE 23.1 MMOL/L (24-32); TOTAL PROTEIN 4.8 G/DL (6.4-8.2); eGFR > 90 ML/MIN
[2019-06-01] MEDS: pantoprazole 40MG/NS 100ML BAG 100 ML IV SCH ×3 (03:19→11:00)
[2019-06-01 06:00] VITALS: BP 123/66
--- NOTE | 2019-06-01 06:30 | NUR ---
Problems reprioritized. Patient report given, questions answered & plan of care reviewed with Jr CUEVAS.
--- NOTE | 2019-06-01 06:39 | NUR ---
Patient in room PCU 3019. I have received report from MASON Mittal and had the opportunity to ask questions and assume patient care.
[2019-06-01 06:51] LABS: BASOPHILS # (AUTO) 0.1 X10'3 (0-0.2); BASOPHILS % (AUTO) 0.5 % (0-1); EOSINOPHILS # (AUTO) 0.2 X10'3 (0-0.9); EOSINOPHILS % (AUTO) 1.4 % (0-6); HEMATOCRIT 27.1 % (42.0-52.0); HEMOGLOBIN 9.3 g/dl (14.0-17.9); LYMPHOCYTES # (AUTO) 1.7 X10'3 (1.1-4.8); LYMPHOCYTES % (AUTO) 15.6 % (21-51); MEAN CORPUSCULAR HEMOGLOBIN 30.6 PG (27.0-31.0); MEAN CORPUSCULAR HGB CONC 34.4 g/dL (33.0-36.5); MEAN CORPUSCULAR VOLUME 89.1 FL (78-98); MEAN PLATELET VOLUME 6.3 FL (7.4-10.4); MONOCYTES # (AUTO) 0.7 X10'3 (0-0.9); MONOCYTES % (AUTO) 6.9 % (2-12); NEUTROPHILS # (AUTO) 8.1 X10'3 (1.8-7.7); NEUTROPHILS % (AUTO) 75.6 % (42-75); PLATELET COUNT 172 X10'3 (140-440); RED BLOOD COUNT 3.05 X10'6 (4.70-6.10); RED CELL DISTRIBUTION WIDTH 14.1 % (11.5-14.5); WHITE BLOOD COUNT 10.7 X10'3 (4.5-11.0)
[2019-06-01] MEDS: K and/or MAG REPLACEMENT MC SCH (07:33)
[2019-06-01] MEDS ORDERED: lisinopril 20mg tablet PO SCH (08:00)
[2019-06-01] MEDS ORDERED: ferrous sulfate 325mg tablet PO SCH (08:00)
--- NOTE | 2019-06-01 08:34 | NUR ---
DM consult: Patient recently admitted and seen by RD May 26, 2019. Pt with A1c 9.4. At that time RD attempted visit with pt at bedside however pt not in room. Patient's at bedside reports her and the pt speak limited Tajik however have daughters that will be visiting that do speak Tajik. Written DM ed with referral to outpatient DM class and RD contact information provided to SO. Encouraged SO to reach out to RD team if her or the pt have any questions regarding DM management. Noted that patient previously with A1c 11.0 in February 2018. Addendum: 06/01/19 at [address] Amended: Links added.
[2019-06-01 11:00] VITALS: BP 133/78
--- NOTE | 2019-06-01 11:24 | NUR ---
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
[2019-06-01 13:09] LABS: BASOPHILS % (AUTO) 0 % (0-1); EOSINOPHILS # (AUTO) 0.1 X10'3 (0-0.9); EOSINOPHILS % (AUTO) 1.1 % (0-6); HEMATOCRIT 27.2 % (42.0-52.0); HEMOGLOBIN 9.2 g/dl (14.0-17.9); LYMPHOCYTES # (AUTO) 1.8 X10'3 (1.1-4.8); LYMPHOCYTES % (AUTO) 18.5 % (21-51); MEAN CORPUSCULAR HEMOGLOBIN 30.4 PG (27.0-31.0); MEAN CORPUSCULAR HGB CONC 33.7 g/dL (33.0-36.5); MEAN CORPUSCULAR VOLUME 90.2 FL (78-98); MEAN PLATELET VOLUME 6.8 FL (7.4-10.4); MONOCYTES # (AUTO) 0.7 X10'3 (0-0.9); MONOCYTES % (AUTO) 6.9 % (2-12); NEUTROPHILS # (AUTO) 7.1 X10'3 (1.8-7.7); NEUTROPHILS % (AUTO) 73.5 % (42-75); PLATELET COUNT 199 X10'3 (140-440); RED BLOOD COUNT 3.01 X10'6 (4.70-6.10); RED CELL DISTRIBUTION WIDTH 14.1 % (11.5-14.5); WHITE BLOOD COUNT 9.6 X10'3 (4.5-11.0)
--- NOTE | 2019-06-01 13:38 | NUR ---
Discharged. IV taken out and tele off. Educated on follow-up, dm survival skills and GIB. Stable for DC per MD.
== END 2019-06-01 13:51 | disposition home or self-care (01) | DRG 241 ==
LOC: ER 13:36 → EDBEDREQSVC 19:13 → CICU 2S 20:52 → CMPBEDREQ 21:37 → PCU 3S 05-31 15:00
PROVIDERS: ADMIT Family Medicine; ATTEND Family Medicine
PROC: 0W3P8ZZ Control Bleeding in Gastrointestinal Tract, Via Natural or Artificial Opening Endoscopic (ICD-10-PCS; principal; 2019-05-30)
PROC: 30233N1 Transfusion of Nonautologous Red Blood Cells into Peripheral Vein, Percutaneous Approach (ICD-10-PCS; 2019-05-30)
PROC: 0DB68ZX Excision of Stomach, Via Natural or Artificial Opening Endoscopic, Diagnostic (ICD-10-PCS; 2019-05-30)
PROC: 30233N1 Transfusion of Nonautologous Red Blood Cells into Peripheral Vein, Percutaneous Approach (ICD-10-PCS; 2019-05-31)
DX: K25.4 Chronic or unspecified gastric ulcer with hemorrhage (principal); K76.0 Fatty (change of) liver, not elsewhere classified; D64.9 Anemia, unspecified; E11.9 Type 2 diabetes mellitus without complications; E78.00 Pure hypercholesterolemia, unspecified; E78.5 Hyperlipidemia, unspecified; I10 Essential (primary) hypertension; K21.9 Gastro-esophageal reflux disease without esophagitis; Z79.84 Long term (current) use of oral hypoglycemic drugs; Z87.11 Personal history of peptic ulcer disease; Z79.4 Long term (current) use of insulin; Z79.899 Other long term (current) drug therapy
CPT/HCPCS: 36415; 43243; 43255; 74176; 80053; 81003; 82948; 83605; 83735; 85025; 85027; 85610; 85730; 86885; 86900; 86901; 86920; 87081; 93005; 96361; 96374; 99152; 99153; 99285; A4620; C9113; G0378; J0171; J1170; J1815; J2250; J3010; P9016

== ENCOUNTER 2023-01-19 17:36 | Inpatient (IN) | payer MEDICAID ==
[~2023-01-19] VITALS: Ht 165.1 cm; Wt 86.4 kg
[~2023-01-19 17:36] MED LIST changes: -FERR325T32 PO; -LISI-600 PO; +LISI20TA28 PO; +MIRT-88 PO; -MIRT30TA8 PO
[2023-01-19] MEDS ORDERED: pantoprazole 40mg IV 80 MG in normal saline 100ml IV soln 100 ML IV ONE (17:45)
[2023-01-19] MEDS ORDERED: ondansetron/PF 4mg/2ml inj IV ONE (17:45)
[2023-01-19] MEDS ORDERED: normal saline 1000ml 1,000 ML IV ONE (17:45)
[2023-01-19 18:00] LABS: BASOPHILS % (AUTO) 0.2 % (0-1); EOSINOPHILS # (AUTO) 0.1 X10'3 (0-0.9); EOSINOPHILS % (AUTO) 0.6 % (0-6); HEMATOCRIT 35.3 % (42.0-52.0); HEMOGLOBIN 11.6 g/dl (14.0-17.9); LYMPHOCYTES % (AUTO) 21.3 % (21-51); MEAN CORPUSCULAR HEMOGLOBIN 29.9 PG (27.0-31.0); MEAN CORPUSCULAR HGB CONC 32.9 g/dL (33.0-36.5); MEAN CORPUSCULAR VOLUME 90.8 FL (78-98); MEAN PLATELET VOLUME 7.3 FL (7.4-10.4); MONOCYTES # (AUTO) 0.8 X10'3 (0-0.9); NEUTROPHILS # (AUTO) 6.6 X10'3 (1.8-7.7); NEUTROPHILS % (AUTO) 69.9 % (42-75); PLATELET COUNT 223 X10'3 (140-440); RED BLOOD COUNT 3.89 X10'6 (4.70-6.10); RED CELL DISTRIBUTION WIDTH 14.1 % (11.5-14.5); WHITE BLOOD COUNT 9.5 X10'3 (4.5-11.0)
[2023-01-19 18:13] LABS: APTT 24 SECONDS (22-32)
[2023-01-19 18:15] LABS: ALANINE AMINOTRANSFERASE 32 U/L (12-78); ALBUMIN 2.6 G/DL (3.4-5.0); ALBUMIN/GLOBULIN RATIO 0.8 (1.1-1.5); ALKALINE PHOSPHATASE 58 IU/L (46-116); ANION GAP 8 (8-16); ASPARTATE AMINO TRANSFERASE 20 U/L (10-37); BILIRUBIN,TOTAL 0.2 MG/DL (0.1-1.0); BLOOD UREA NITROGEN 18 MG/DL (7-18); BUN/CREATININE RATIO 14.8 (10.0-20.0); CALCIUM 8.7 MG/DL (8.5-10.1); CHLORIDE 108 MMOL/L (99-107); CREATININE 1.22 MG/DL (0.60-1.10); GLUCOSE 240 MG/DL (70-104); POTASSIUM 4.3 MMOL/L (3.5-5.1); SODIUM 140 MMOL/L (135-145); TOTAL CARBON DIOXIDE 23.7 MMOL/L (24-32); TOTAL PROTEIN 5.7 G/DL (6.4-8.2); eGFR 60 ML/MIN
[2023-01-19] MEDS ORDERED: phytonadione inj. 5 MG in normal saline 100ml IV soln 100 ML IV ONE (18:15)
[2023-01-19 18:18] LABS: ETHANOL < 0.010 GM/DL (0.0-0.010); LIPASE 111 U/L (73-393); MAGNESIUM 1.8 MG/DL (1.5-2.4)
[2023-01-19] MEDS ORDERED: octreotide 100mcg/1 ml ampule IV ONE (18:25)
[2023-01-19] MEDS ORDERED: octreotide inj. 1,250 MCG in normal saline 250ml IV soln 243.75 ML IV ONE (18:30)
[2023-01-19] MEDS ORDERED: temazepam 15mg capsule PO PRN (21:00)
[2023-01-19] MEDS ORDERED: HYDROcodone/acetaminophen 5mg/325mg tablet PO PRN (21:10)
[2023-01-19] MEDS ORDERED: ondansetron 4mg rapidly disintigrating tab PO PRN (21:10)
[2023-01-19] MEDS ORDERED: morphine 2 MG/ML inj. syringe IV PRN (21:10)
[2023-01-19] MEDS ORDERED: diphenhydrAMINE 25mg capsule PO PRN (21:10)
[2023-01-19] MEDS ORDERED: ondansetron/PF 4mg/2ml inj IV PRN (21:10)
[2023-01-19] MEDS ORDERED: diphenhydrAMINE 50 mg/ml inj IV PRN (21:10)
[2023-01-19] MEDS ORDERED: acetaminophen 650mg rectal suppository RC PRN (21:10)
[2023-01-19] MEDS ORDERED: bisacodyl 10mg suppository rectal RC PRN (21:10)
[2023-01-19] MEDS ORDERED: acetaminophen 325mg tablet PO PRN (21:10)
[2023-01-19] MEDS ORDERED: magnesium hydroxide 30ml (MOM) UD suspension PO PRN (21:10)
[2023-01-19] MEDS ORDERED: mag hydrox/Alum hydrox/simeth 30ml oral suspension PO PRN (21:10)
[2023-01-19] MEDS ORDERED: MESSAGE TO PHARMACY PO ONE (21:15)
[2023-01-19] MEDS ORDERED: tranexamic acid inj. 1,000 MG in normal saline 100ml IV soln 90 ML IV ONE (21:15)
[2023-01-19] MEDS ORDERED: DEXTROSE 15 GM of carb/4 tabs (each vial/BOTTLE has 4 tablets) PO PRN ×2 (21:15)
[2023-01-19] MEDS ORDERED: glucagon, human recombinant 1mg kit SUBCUT PRN (21:15)
[2023-01-19] MEDS ORDERED: dextrose 50%-water 50ml dispensing syringe IV PRN ×2 (21:15)
[2023-01-19 21:31] LABS: HEMOGLOBIN A1C 8.7 % (4.5-6.2)
[2023-01-19] MEDS: normal saline 1000ml 1,000 ML IV SCH (21:37)
[2023-01-19 21:43] LABS: CREATINE KINASE 50 U/L (39-308); PHOSPHORUS 4.6 MG/DL (2.3-4.5)
[2023-01-20] VITALS (9 sets, daily range): BP systolic 114–138; BP diastolic 63–74
--- NOTE | 2023-01-20 00:49 | NUR ---
Pt moved into hospital bed for comfort. Pt waiting for inpatient admission. Pt vitals stable. IVF infusing. at bedside. Will continue to monitor.
[2023-01-20] MEDS ORDERED: PANT-47 PO (00:54)
[2023-01-20] MEDS ORDERED: SEMA3TAB4 PO (00:58)
[2023-01-20] MEDS ORDERED: LOSA100T57 PO (00:58)
[2023-01-20] MEDS: pantoprazole 40MG/NS 100ML BAG 100 ML IV SCH ×5 (01:03→19:47)
[2023-01-20] MEDS: normal saline 1000ml 1,000 ML IV SCH ×2 (02:08→15:38)
--- NOTE | 2023-01-20 02:19 | NUR ---
Pt up to commode. Pt had bloody stool BM. Pt settled back in bed and resting comfortably. Pt left for the night. Will continue to monior patient.
[2023-01-20 07:52] LABS: BASOPHILS % (AUTO) 0.2 % (0-1); EOSINOPHILS % (AUTO) 0.1 % (0-6); HEMATOCRIT 28.5 % (42.0-52.0); HEMOGLOBIN 9.4 g/dl (14.0-17.9); LYMPHOCYTES % (AUTO) 21.7 % (21-51); MEAN CORPUSCULAR HEMOGLOBIN 30.1 PG (27.0-31.0); MEAN CORPUSCULAR VOLUME 91.2 FL (78-98); MEAN PLATELET VOLUME 7.4 FL (7.4-10.4); MONOCYTES # (AUTO) 0.7 X10'3 (0-0.9); MONOCYTES % (AUTO) 7.4 % (2-12); NEUTROPHILS # (AUTO) 6.4 X10'3 (1.8-7.7); NEUTROPHILS % (AUTO) 70.6 % (42-75); PLATELET COUNT 206 X10'3 (140-440); RED BLOOD COUNT 3.12 X10'6 (4.70-6.10)
--- NOTE | 2023-01-20 07:53 | NUR ---
CALLED ORTHO TO GIVE REPORT TO SEND PT UP TO ROOM NO ANSWER.
--- NOTE | 2023-01-20 07:56 | NUR ---
CALLED ORTHO TO GIVE REPORT FOR PT NO ANSWER.
[2023-01-20] MEDS: docusate sod 100mg capsule PO SCH ×2 (08:00→19:18)
--- NOTE | 2023-01-20 08:00 | NUR ---
CALLED ORTHO TO GIVE REPORT NO ANSWER.
[2023-01-20 08:45] LABS: ALANINE AMINOTRANSFERASE 27 U/L (12-78); ALBUMIN 2.4 G/DL (3.4-5.0); ALBUMIN/GLOBULIN RATIO 0.9 (1.1-1.5); ALKALINE PHOSPHATASE 45 IU/L (46-116); ANION GAP 8 (8-16); ASPARTATE AMINO TRANSFERASE 18 U/L (10-37); BILIRUBIN,TOTAL 0.3 MG/DL (0.1-1.0); BLOOD UREA NITROGEN 31 MG/DL (7-18); CALCIUM 7.9 MG/DL (8.5-10.1); CHLORIDE 111 MMOL/L (99-107); CHOL/HDL RATIO 4.6 (0.00-4.99); CHOLESTEROL 157 MG/DL (0-200); CREATININE 1.15 MG/DL (0.60-1.10); GLUCOSE 176 MG/DL (70-104); HDL CHOLESTEROL 34 MG/DL (35-60); LDL CHOLESTEROL 103 MG/DL (50-100); POTASSIUM 4.6 MMOL/L (3.5-5.1); SODIUM 143 MMOL/L (135-145); TOTAL CARBON DIOXIDE 24.5 MMOL/L (24-32); TOTAL PROTEIN 5.1 G/DL (6.4-8.2); TRIGLYCERIDES 92 MG/DL (20-135); eGFR 64 ML/MIN
[2023-01-20] MEDS ORDERED: fentaNYL/PF 50MCG/1 ML 2ML syringe ONE (08:48)
[2023-01-20] MEDS ORDERED: MIDAZolam 1 MG/ML 5ML VIAL ONE (08:48)
[2023-01-20] MEDS ORDERED: LIDOcaine Viscous 15ml cup ONE (08:48)
[2023-01-20] MEDS ORDERED: heparin sodium, porcine/PF 100unit/ml 5ML syringe ONE (12:30)
--- NOTE | 2023-01-20 17:30 | NUR ---
Orientee Medication Administration: For this medication-pass time frame, all medication were reviewed, dispensed, administered and documented per hospital policy by Corinne CUEVAS.
--- NOTE | 2023-01-20 17:30 | NUR ---
Orientee documentation: I have reviewed and agree with all interventions, assessments performed and documented by Corinne CUEVAS.
[2023-01-20 18:45] LABS: HEMATOCRIT 23.5 % (42.0-52.0); HEMOGLOBIN 7.5 g/dl (14.0-17.9); MEAN CORPUSCULAR HEMOGLOBIN 29.3 PG (27.0-31.0); MEAN CORPUSCULAR HGB CONC 31.7 g/dL (33.0-36.5); MEAN CORPUSCULAR VOLUME 92.4 FL (78-98); MEAN PLATELET VOLUME 7.5 FL (7.4-10.4); PLATELET COUNT 199 X10'3 (140-440); RED BLOOD COUNT 2.55 X10'6 (4.70-6.10); RED CELL DISTRIBUTION WIDTH 14.2 % (11.5-14.5); WHITE BLOOD COUNT 12.9 X10'3 (4.5-11.0)
--- NOTE | 2023-01-20 18:59 | NUR ---
Problems reprioritized. Patient report given, questions answered & plan of care reviewed with Eduardo CUEVAS.
[2023-01-20] MEDS ORDERED: IBUP-1985 PO (19:20)
--- NOTE | 2023-01-20 19:26 | NUR ---
family brought in patient's home meds. verified doses are correct - family states the metformin he also has been taking, but was not in the meds brought to the hospital. returned medication to family to take home.
[2023-01-20] MEDS: acetaminophen 325mg tablet PO PRN (19:46)
[2023-01-20] MEDS: atorvastatin 20mg tablet PO SCH (19:46)
--- NOTE | 2023-01-20 20:56 | NUR ---
contacted Dr. Balderas for long acting insulin order for pt now meeting protocol. MD does not want to give patient any insulin since he will be NPO at midnight. 2100 sugar was 227. aware. Will not order long acting per protcol and will not treat with lispro.
[2023-01-20] MEDS: insulin Lispro (HumaLOG) vial - multi-dose SQ SCH (20:58)
[2023-01-20 23:53] LABS: MEAN CORPUSCULAR HEMOGLOBIN 29.4 PG (27.0-31.0); MEAN CORPUSCULAR VOLUME 91.9 FL (78-98); MEAN PLATELET VOLUME 7.3 FL (7.4-10.4); PLATELET COUNT 180 X10'3 (140-440); RED BLOOD COUNT 2.17 X10'6 (4.70-6.10); RED CELL DISTRIBUTION WIDTH 14.4 % (11.5-14.5); WHITE BLOOD COUNT 11.7 X10'3 (4.5-11.0)
[2023-01-20 23:57] LABS: HEMOGLOBIN 6.4 g/dl (14.0-17.9)
[2023-01-20 23:58] LABS: HEMATOCRIT 19.9 % (42.0-52.0)
[2023-01-21] VITALS (53 sets, daily range): BP systolic 91–151; BP diastolic 49–85
[2023-01-21] MEDS ORDERED: ringers solution, lacted 1,000 ML IV ONE (00:25)
--- NOTE | 2023-01-21 00:25 | NUR ---
contacted Dr. ochoa about patient's heart rate elevated 160-180. tele states it was over 200 at one point. BP 91/70 order received for EKG and 1 Liter LR bolus IV. notified Eduardo and got LR liter and tubing.
--- NOTE | 2023-01-21 00:40 | NUR ---
EKG showed afib with RVR rate 175. pt not in distress, no pain to belly or chest or back. noted fresh BP with kacie blood in toilet. dr. balderas saw blood also. Dr. Balderas consented patient to receive blood transfusion. pt agreeable. freq VS started. at bedside does not speak ecuadorean. pt understands ecuadorean and nods head to approval and consent.
[2023-01-21] MEDS: pantoprazole 40MG/NS 100ML BAG 100 ML IV SCH ×5 (01:00→21:07)
--- NOTE | 2023-01-21 02:30 | NUR ---
Dr. Pinon called - [employer] community organization worker. gave report on patient noted that patient has just flipped in to SR rate 110 and BP stable. MD requested stat CT scan and transfer to CICU. notified tele, faxed CT scan form, blood still transfusing. Notified charge hand Abi of plan to transfer pt to CT and then ICU. notified remote encoding operations supervisor of transfer orders.
[2023-01-21] MEDS ORDERED: iohexol 350MG/ML 100ml bottle IV ONE (02:35)
--- NOTE | 2023-01-21 03:00 | NUR ---
showed the waiting room chairs outside CICU. notified RN that was outside waiting for information.
--- NOTE | 2023-01-21 03:52 | NUR ---
Patient transferred to room CICU 2009. I have received report from Eduardo CUEVAS and had the opportunity to ask questions and assume patient care.
[2023-01-21 06:09] LABS: HEMOGLOBIN 8.5 g/dl (14.0-17.9); MEAN CORPUSCULAR HEMOGLOBIN 28.9 PG (27.0-31.0); MEAN CORPUSCULAR HGB CONC 32.5 g/dL (33.0-36.5); MEAN PLATELET VOLUME 7.3 FL (7.4-10.4); PLATELET COUNT 156 X10'3 (140-440); RED BLOOD COUNT 2.92 X10'6 (4.70-6.10); RED CELL DISTRIBUTION WIDTH 15.6 % (11.5-14.5); WHITE BLOOD COUNT 11.2 X10'3 (4.5-11.0)
[2023-01-21 06:18] LABS: ALANINE AMINOTRANSFERASE 20 U/L (12-78); ALBUMIN 2.2 G/DL (3.4-5.0); ALBUMIN/GLOBULIN RATIO 0.9 (1.1-1.5); ALKALINE PHOSPHATASE 37 IU/L (46-116); ANION GAP 7 (8-16); ASPARTATE AMINO TRANSFERASE 14 U/L (10-37); BILIRUBIN,TOTAL 0.7 MG/DL (0.1-1.0); BLOOD UREA NITROGEN 32 MG/DL (7-18); CALCIUM 7.6 MG/DL (8.5-10.1); CHLORIDE 113 MMOL/L (99-107); GLUCOSE 216 MG/DL (70-104); POTASSIUM 4.3 MMOL/L (3.5-5.1); SODIUM 143 MMOL/L (135-145); TOTAL CARBON DIOXIDE 22.7 MMOL/L (24-32); TOTAL PROTEIN 4.6 G/DL (6.4-8.2); eGFR 76 ML/MIN
--- NOTE | 2023-01-21 06:30 | NUR ---
Patient in room CICU 2009. I have received report from MASON Arreola and had the opportunity to ask questions and assume patient care.
--- NOTE | 2023-01-21 06:45 | NUR ---
Problems reprioritized. Patient report given, questions answered & plan of care reviewed with Karrie CUEVAS.
--- NOTE | 2023-01-21 07:29 | NUR ---
T/C to pt's daughter Octavia to update plan of care and occurrences over night.
[2023-01-21] MEDS ORDERED: midazolam 1 mg/ML 2ml injection ONE (07:54)
[2023-01-21] MEDS ORDERED: iohexol 300mg/ml 100ml inj. ONE (07:54)
[2023-01-21] MEDS ORDERED: fentaNYL/PF 50MCG/1 ML 2ML syringe ONE ×2 (07:54→16:06)
[2023-01-21] MEDS ORDERED: LIDOcaine 1% 30ml preserv. free vial ONE (07:55)
[2023-01-21] MEDS ORDERED: heparin 1,000 UNITS/NS 500ml 500 ML ONE (07:55)
[2023-01-21] MEDS: docusate sod 100mg capsule PO SCH ×2 (08:00→20:00)
[2023-01-21] MEDS ORDERED: glucagon, human recombinant 1mg kit ONE (08:45)
--- NOTE | 2023-01-21 11:31 | NUR ---
DM Consult: Pt hx T2DM A1C 8.7% takes semaglutide daily, Basaglar 25 units HS, and Metformin BID at home per EMR. Pt admit DX UGIB w/ hx Biliroth II 2018 per service cleaner at rounds; s/p endoscopy advanced to clear liquids diet PO pending. Pt still w/ blood in stool this AM speaks Mien understands some Armenian though family at bedside can translate per RN. Pt would benefit from DM diet ed once more appropriate this admit prior to discharge. STEPHANIE d/w regarding routine MVI w/ Fe given Biliroth II hx if agreeable; to have Fe studies done and then supplement as needed per service cleaner. Addendum: 01/21/23 at [address] Amended: Links added.
[2023-01-21] MEDS: normal saline 1000ml 1,000 ML IV SCH ×3 (12:01→23:10)
[2023-01-21] MEDS: insulin Lispro (HumaLOG) vial - multi-dose SQ SCH ×2 (12:36→20:26)
[2023-01-21 13:31] LABS: MEAN CORPUSCULAR HEMOGLOBIN 28.4 PG (27.0-31.0); MEAN CORPUSCULAR HGB CONC 31.6 g/dL (33.0-36.5); MEAN CORPUSCULAR VOLUME 89.8 FL (78-98); MEAN PLATELET VOLUME 7.6 FL (7.4-10.4); PLATELET COUNT 156 X10'3 (140-440); RED BLOOD COUNT 2.19 X10'6 (4.70-6.10); RED CELL DISTRIBUTION WIDTH 16.1 % (11.5-14.5); WHITE BLOOD COUNT 16.6 X10'3 (4.5-11.0)
[2023-01-21 13:35] LABS: HEMATOCRIT 19.6 % (42.0-52.0); HEMOGLOBIN 6.2 g/dl (14.0-17.9)
[2023-01-21] MEDS ORDERED: MIDAZolam 1 MG/ML 5ML VIAL ONE (16:07)
--- NOTE | 2023-01-21 16:36 | NUR ---
Dr Gibbons notified, via T/C, of congealed sanguinous BM
[2023-01-21] MEDS ORDERED: epiNEPHrine 0.1mg/ml 10ml syringe ONE (18:04)
--- NOTE | 2023-01-21 18:45 | NUR ---
Problems reprioritized. Patient report given, questions answered & plan of care reviewed with MASON Cosme.
--- NOTE | 2023-01-21 19:27 | NUR ---
Second unit of blood being transfused d/t recent blood congealed BM. Awaiting Doctor/surgeon to review chart for potential surgery.
[2023-01-21 20:11] LABS: HEMATOCRIT 22.5 % (42.0-52.0); HEMOGLOBIN 7.2 g/dl (14.0-17.9); MEAN CORPUSCULAR VOLUME 87.4 FL (78-98); MEAN PLATELET VOLUME 7.7 FL (7.4-10.4); PLATELET COUNT 137 X10'3 (140-440); RED BLOOD COUNT 2.58 X10'6 (4.70-6.10); RED CELL DISTRIBUTION WIDTH 16.4 % (11.5-14.5); WHITE BLOOD COUNT 17.5 X10'3 (4.5-11.0)
[2023-01-21] MEDS: vancomycin/NS 1 GM ADD-VANTAGE 250 ML IV SCH (20:23)
[2023-01-21] MEDS: atorvastatin 20mg tablet PO SCH (21:00)
[2023-01-21] MEDS: insulin glargine (Lantus) pen - multi-dose SQ SCH (21:08)
[2023-01-22] VITALS (31 sets, daily range): BP systolic 96–153; BP diastolic 50–85
[2023-01-22] MEDS: piperacillin/tazo 3.375gm/50ml 50 ML IV SCH ×3 (00:52→16:24)
[2023-01-22] MEDS: pantoprazole 40MG/NS 100ML BAG 100 ML IV SCH ×4 (01:00→22:00)
[2023-01-22] MEDS: vancomycin/NS 1 GM ADD-VANTAGE 250 ML IV SCH (05:14)
[2023-01-22 05:56] LABS: HEMATOCRIT 24.4 % (42.0-52.0); MEAN CORPUSCULAR HGB CONC 32.7 g/dL (33.0-36.5); MEAN CORPUSCULAR VOLUME 88.6 FL (78-98); MEAN PLATELET VOLUME 7.6 FL (7.4-10.4); PLATELET COUNT 138 X10'3 (140-440); RED BLOOD COUNT 2.76 X10'6 (4.70-6.10); RED CELL DISTRIBUTION WIDTH 15.8 % (11.5-14.5)
[2023-01-22 06:10] LABS: ALANINE AMINOTRANSFERASE 15 U/L (12-78); ALBUMIN 1.9 G/DL (3.4-5.0); ALBUMIN/GLOBULIN RATIO 0.9 (1.1-1.5); ALKALINE PHOSPHATASE 30 IU/L (46-116); ASPARTATE AMINO TRANSFERASE 18 U/L (10-37); BILIRUBIN,TOTAL 0.4 MG/DL (0.1-1.0); BLOOD UREA NITROGEN 32 MG/DL (7-18); BUN/CREATININE RATIO 30.5 (10.0-20.0); CALCIUM 7.4 MG/DL (8.5-10.1); CHLORIDE 118 MMOL/L (99-107); CREATININE 1.05 MG/DL (0.60-1.10); GLUCOSE 151 MG/DL (70-104); POTASSIUM 4.2 MMOL/L (3.5-5.1); SODIUM 148 MMOL/L (135-145); TOTAL PROTEIN 4.1 G/DL (6.4-8.2); eGFR 72 ML/MIN
[2023-01-22 06:15] LABS: ANION GAP 8 (8-16); TOTAL CARBON DIOXIDE 22.4 MMOL/L (24-32)
--- NOTE | 2023-01-22 06:30 | NUR ---
Patient in room CICU 2009. I have received report from Ba CUEVAS and had the opportunity to ask questions and assume patient care.
[2023-01-22] MEDS: docusate sod 100mg capsule PO SCH ×2 (07:23→20:47)
[2023-01-22] MEDS: insulin Lispro (HumaLOG) vial - multi-dose SQ SCH ×3 (08:49→20:53)
--- NOTE | 2023-01-22 09:34 | NUR ---
Out of bed Pt assisted out of bed with 2 RN assist to chair for breakfast. Tolerated well. Ate breakfast. to see pt also. Both have limited Filipino skills. Pt denies any abd. symptoms. Dr. Gibbons to see, plan reviewed, no new orders.
--- NOTE | 2023-01-22 10:22 | NUR ---
Family still with pt. Pt doing well. PT to eval & treat. Rounds completed and new orders received.
--- NOTE | 2023-01-22 10:57 | NUR ---
Son to see Son says he doesn't have ambulation issues. PT did walk him with a walker though. No BM or smear, flatus noted.
--- NOTE | 2023-01-22 11:19 | NUR ---
F/u: Pt working with PT this morning. Will f/u at another time for DM education. agrees to MVM and Vitamin B12 given h/o Faby MORALES, clinical pharmacist to update orders in EMR. Serum Fe WNL. Will continue to follow. Addendum: 01/22/23 at [address] Amended: Links added.
[2023-01-22 11:38] LABS: HEMATOCRIT 22.8 % (42.0-52.0); HEMOGLOBIN 7.2 g/dl (14.0-17.9); MEAN CORPUSCULAR HEMOGLOBIN 28.9 PG (27.0-31.0); MEAN CORPUSCULAR HGB CONC 31.7 g/dL (33.0-36.5); MEAN CORPUSCULAR VOLUME 91.3 FL (78-98); MEAN PLATELET VOLUME 7.6 FL (7.4-10.4); PLATELET COUNT 135 X10'3 (140-440); RED CELL DISTRIBUTION WIDTH 16.4 % (11.5-14.5); WHITE BLOOD COUNT 16.6 X10'3 (4.5-11.0)
--- NOTE | 2023-01-22 11:40 | NUR ---
PT in chair Pt remains in chair, states pretty comfortable there. & daughter left for lunch. Pt sleeping & sats down to 89%; O2 increased to 6 L N/C.
--- NOTE | 2023-01-22 17:51 | NUR ---
Family here Son [place] at bedside. Pt talking to son in [place] who says his speech is somewhat slurred and he's not clear in his verbal communication. RN determined pt wanted his HOB higher and he was using the call light system to move his HOB. Son says hes improved now and speech is clear. Maybe just need to eat. Pt passing flatus.
[2023-01-22 18:14] LABS: MEAN CORPUSCULAR HEMOGLOBIN 28.5 PG (27.0-31.0); MEAN CORPUSCULAR HGB CONC 31.7 g/dL (33.0-36.5); MEAN CORPUSCULAR VOLUME 89.8 FL (78-98); MEAN PLATELET VOLUME 7.6 FL (7.4-10.4); PLATELET COUNT 151 X10'3 (140-440); RED BLOOD COUNT 2.39 X10'6 (4.70-6.10); RED CELL DISTRIBUTION WIDTH 15.8 % (11.5-14.5); WHITE BLOOD COUNT 16.9 X10'3 (4.5-11.0)
--- NOTE | 2023-01-22 18:15 | NUR ---
SFTProblems reprioritized. Patient report given, questions answered & plan of care reviewed with Kwabena CUEVAS.
[2023-01-22 18:21] LABS: HEMOGLOBIN 6.8 g/dl (14.0-17.9)
[2023-01-22 18:22] LABS: HEMATOCRIT 21.5 % (42.0-52.0)
--- NOTE | 2023-01-22 18:32 | NUR ---
critical value of hemoglobin 6.[address] Gibbons, ordered transfusion of 2 units LPRC and refer to Dr. Beard
[2023-01-22] MEDS ORDERED: amiodarone 50MG/ML inj IV ONE (18:35)
[2023-01-22] MEDS ORDERED: amiodarone 150mg/dext, iso-os 100 ML IV ONE ×2 (18:35→18:36)
--- NOTE | 2023-01-22 18:40 | NUR ---
called Dr. Gibbons re: AF in RVR of 180-200 bpm, ordered amiodarone protocol
[2023-01-22] MEDS ORDERED: metoprolol tartrate 1mg/ml inj IV ONE (19:00)
[2023-01-22] MEDS: amiodarone/D5 360MG/200ML BAG 200 ML IV SCH (19:13)
[2023-01-22] MEDS ORDERED: digoxin 250mcg/ml 2ml ampule IV ONE (20:30)
[2023-01-22] MEDS ORDERED: chlorproMAZINE 25mg/ml inj. IV PRN (20:30)
[2023-01-22] MEDS: atorvastatin 20mg tablet PO SCH (20:47)
[2023-01-22] MEDS ORDERED: chlorproMAZINE 25mg tablet PO PRN (20:50)
[2023-01-22] MEDS: insulin glargine (Lantus) pen - multi-dose SQ SCH (20:55)
[2023-01-23] VITALS (20 sets, daily range): BP systolic 93–167; BP diastolic 41–71
[2023-01-23] MEDS: piperacillin/tazo 3.375gm/50ml 50 ML IV SCH ×3 (00:27→15:39)
[2023-01-23] MEDS: amiodarone/D5 360MG/200ML BAG 200 ML IV SCH (00:34)
[2023-01-23 03:53] LABS: HEMATOCRIT 26.6 % (42.0-52.0); HEMOGLOBIN 8.7 g/dl (14.0-17.9); MEAN CORPUSCULAR HEMOGLOBIN 29.4 PG (27.0-31.0); MEAN CORPUSCULAR HGB CONC 32.7 g/dL (33.0-36.5); MEAN CORPUSCULAR VOLUME 90.1 FL (78-98); MEAN PLATELET VOLUME 7.7 FL (7.4-10.4); PLATELET COUNT 123 X10'3 (140-440); RED BLOOD COUNT 2.95 X10'6 (4.70-6.10); RED CELL DISTRIBUTION WIDTH 15.4 % (11.5-14.5); WHITE BLOOD COUNT 13.9 X10'3 (4.5-11.0)
[2023-01-23] MEDS: pantoprazole 40MG/NS 100ML BAG 100 ML IV SCH ×6 (04:20→21:00)
[2023-01-23] MEDS ORDERED: VANCOMYCIN LEVEL IV ONE (04:30)
--- NOTE | 2023-01-23 06:10 | NUR ---
Problems reprioritized. Patient report given, questions answered & plan of care reviewed with MASON Gupta.
--- NOTE | 2023-01-23 06:30 | NUR ---
Patient in room CICU 2009. I have received report from Kwabena CUEVAS and had the opportunity to ask questions and assume patient care.
[2023-01-23] MEDS: cyanocobalamin 500mcg tablet PO SCH ×2 (08:00→08:31)
[2023-01-23] MEDS: thiamine 100mg tablet PO SCH ×2 (08:00→08:32)
[2023-01-23] MEDS: multivitamins, therapeutics tablet PO SCH ×2 (08:00→08:31)
[2023-01-23] MEDS: folic acid 1mg tablet PO SCH ×2 (08:00→08:31)
[2023-01-23] MEDS: docusate sod 100mg capsule PO SCH ×2 (08:31→20:58)
--- NOTE | 2023-01-23 10:55 | NUR ---
MD visit Dr. Pulido saw pt and discussed pts condition and plan with the family. PT walked pt.
[2023-01-23 10:57] LABS: ALANINE AMINOTRANSFERASE 19 U/L (12-78); ALBUMIN/GLOBULIN RATIO 0.8 (1.1-1.5); ALKALINE PHOSPHATASE 31 IU/L (46-116); ANION GAP 3 (8-16); ASPARTATE AMINO TRANSFERASE 18 U/L (10-37); BILIRUBIN,TOTAL 0.3 MG/DL (0.1-1.0); BLOOD UREA NITROGEN 17 MG/DL (7-18); CALCIUM 7.5 MG/DL (8.5-10.1); CHLORIDE 112 MMOL/L (99-107); CREATININE 0.85 MG/DL (0.60-1.10); GLUCOSE 143 MG/DL (70-104); POTASSIUM 3.5 MMOL/L (3.5-5.1); SODIUM 139 MMOL/L (135-145); TOTAL CARBON DIOXIDE 23.6 MMOL/L (24-32); TOTAL PROTEIN 4.5 G/DL (6.4-8.2); eGFR > 90 ML/MIN
[2023-01-23 11:00] LABS: HEMATOCRIT 28.6 % (42.0-52.0); HEMOGLOBIN 9.1 g/dl (14.0-17.9); MEAN CORPUSCULAR HEMOGLOBIN 29.5 PG (27.0-31.0); MEAN CORPUSCULAR HGB CONC 31.9 g/dL (33.0-36.5); MEAN CORPUSCULAR VOLUME 92.4 FL (78-98); MEAN PLATELET VOLUME 7.9 FL (7.4-10.4); PLATELET COUNT 130 X10'3 (140-440); RED CELL DISTRIBUTION WIDTH 15.1 % (11.5-14.5); WHITE BLOOD COUNT 14.4 X10'3 (4.5-11.0)
[2023-01-23] MEDS: acetaminophen 325mg tablet PO PRN (16:55)
--- NOTE | 2023-01-23 16:58 | NUR ---
Pt up commode Pt up to commode for BM and urination. Condom cath was removed as pt would not urinate with it on. Could be a communication issue but he wouldn't/couldn't.
--- NOTE | 2023-01-23 18:10 | NUR ---
Patient in room [facility] 2009. I have received report from Earl CUEVAS and had the opportunity to ask questions and assume patient care. Addendum: 01/23/23 at 1843 by Nay Blue RN Incorrect patient. Did not receive report about this patient. Disregard.
[2023-01-23 18:19] LABS: HEMATOCRIT 26.1 % (42.0-52.0); HEMOGLOBIN 8.5 g/dl (14.0-17.9); MEAN CORPUSCULAR HEMOGLOBIN 29.4 PG (27.0-31.0); MEAN CORPUSCULAR HGB CONC 32.7 g/dL (33.0-36.5); MEAN CORPUSCULAR VOLUME 90.1 FL (78-98); MEAN PLATELET VOLUME 7.8 FL (7.4-10.4); PLATELET COUNT 135 X10'3 (140-440); RED CELL DISTRIBUTION WIDTH 14.8 % (11.5-14.5); WHITE BLOOD COUNT 13.6 X10'3 (4.5-11.0)
--- NOTE | 2023-01-23 18:46 | NUR ---
Problems reprioritized. Patient report given, questions answered & plan of care reviewed with Gilma CUEVAS on PCU.
[2023-01-23] MEDS: atorvastatin 20mg tablet PO SCH (20:58)
[2023-01-23] MEDS: insulin glargine (Lantus) pen - multi-dose SQ SCH (21:09)
[2023-01-24] MEDS: pantoprazole 40MG/NS 100ML BAG 100 ML IV SCH ×5 (01:00→20:38)
[2023-01-24 02:00] VITALS: BP 148/70
[2023-01-24 07:00] VITALS: BP 145/69
[2023-01-24 07:10] LABS: HEMATOCRIT 24.6 % (42.0-52.0); HEMOGLOBIN 8.4 g/dl (14.0-17.9); MEAN CORPUSCULAR HEMOGLOBIN 30.4 PG (27.0-31.0); MEAN CORPUSCULAR HGB CONC 33.9 g/dL (33.0-36.5); MEAN CORPUSCULAR VOLUME 89.6 FL (78-98); MEAN PLATELET VOLUME 7.6 FL (7.4-10.4); PLATELET COUNT 162 X10'3 (140-440); RED BLOOD COUNT 2.75 X10'6 (4.70-6.10); RED CELL DISTRIBUTION WIDTH 15.2 % (11.5-14.5); WHITE BLOOD COUNT 11.3 X10'3 (4.5-11.0)
[2023-01-24 07:28] LABS: ALANINE AMINOTRANSFERASE 21 U/L (12-78); ALBUMIN/GLOBULIN RATIO 0.7 (1.1-1.5); ALKALINE PHOSPHATASE 35 IU/L (46-116); ANION GAP 9 (8-16); ASPARTATE AMINO TRANSFERASE 25 U/L (10-37); BILIRUBIN,TOTAL 0.7 MG/DL (0.1-1.0); BLOOD UREA NITROGEN 8 MG/DL (7-18); BUN/CREATININE RATIO 10.5 (10.0-20.0); CHLORIDE 110 MMOL/L (99-107); CREATININE 0.76 MG/DL (0.60-1.10); GLUCOSE 136 MG/DL (70-104); POTASSIUM 3.6 MMOL/L (3.5-5.1); SODIUM 143 MMOL/L (135-145); TOTAL CARBON DIOXIDE 24.2 MMOL/L (24-32); TOTAL PROTEIN 4.8 G/DL (6.4-8.2); eGFR > 90 ML/MIN
[2023-01-24] MEDS: insulin Lispro (HumaLOG) vial - multi-dose SQ SCH ×3 (08:52→20:57)
[2023-01-24] MEDS: thiamine 100mg tablet PO SCH (08:54)
[2023-01-24] MEDS: multivitamins, therapeutics tablet PO SCH (08:54)
[2023-01-24] MEDS: folic acid 1mg tablet PO SCH (08:54)
[2023-01-24] MEDS: docusate sod 100mg capsule PO SCH ×2 (08:54→20:37)
[2023-01-24] MEDS: cyanocobalamin 500mcg tablet PO SCH (08:54)
--- NOTE | 2023-01-24 09:04 | NUR ---
MADELYN NOT BROUGHT UP FROM PHARMACY . [facility] WILL BRING UP AFTER THEY GET IT READY
[2023-01-24] MEDS: piperacillin/tazo 3.375gm/50ml 50 ML IV SCH ×3 (10:25→15:59)
[2023-01-24 11:00] VITALS: BP 159/69
[2023-01-24 12:38] LABS: HEMATOCRIT 25.3 % (42.0-52.0); HEMOGLOBIN 8.4 g/dl (14.0-17.9); MEAN CORPUSCULAR HGB CONC 33.4 g/dL (33.0-36.5); MEAN PLATELET VOLUME 7.6 FL (7.4-10.4); PLATELET COUNT 170 X10'3 (140-440); RED BLOOD COUNT 2.81 X10'6 (4.70-6.10); RED CELL DISTRIBUTION WIDTH 15.1 % (11.5-14.5); WHITE BLOOD COUNT 10.9 X10'3 (4.5-11.0)
[2023-01-24] MEDS: NUT.TX.GLUC.INTOLER,LAC-FR,SOY (GLUCERNA) 237 ML PO SCH ×2 (13:00→18:00)
--- NOTE | 2023-01-24 13:07 | NUR ---
Initial: Pt admit DX UGIB suspected from efferent limb of prior Billroth II surgery in 2019, anemia, afib w/ RVR, hypernatremia, ISABELLA w/ possible CKD, and dyslipidemia per EMR. Hx T2DM A1C 8.7% takes semaglutide daily, Basaglar 25 units HS, and Metformin BID at home per EMR. Initially NPO vs bliro clear liquids past 5 days only eaten 5 meals w/ ~53% avg not meeting needs given nature of diet. Advanced to full liquids today per MD pending PO trends. Pt would benefit from Glucerna TIDWM given prolonged restrictive diet to assist meeting needs; MD notified. Pt family not present to assist in DM ed translation during RD visit today; will return prior to discharge for DM diet ed. LBM 01/23 per RN note. Will continue to monitor. Rec: 1. advance diet as medically indicated to No Concentrated Sweets 2. Glucerna TIDWM if to remain at least on full liquids diet; pending physician verification in EMR 3. routine thiamine, folic acid, B12, and MVI supplementation given Billroth II hx 4. bowel care per rx 5. scaled wt this admit; subsequent weekly wt 6. DM diet ed prior to discharge; hx T2DM A1C 8.7% Addendum: 01/24/23 at [address] Initial: Pt admit DX UGIB suspected from efferent limb of prior Billroth II surgery in 2019, anemia, afib w/ RVR, hypernatremia, ISABELLA w/ possible CKD, and dyslipidemia per EMR. Hx T2DM A1C 8.7% takes semaglutide daily, Basaglar 25 units HS, and Metformin BID at home per EMR. Initially NPO vs clear liquids past 5 days only eaten 5 meals w/ ~53% avg not meeting needs given nature of diet. Advanced to full liquids today per MD pending PO trends. Pt would benefit from Glucerna TIDWM given prolonged restrictive diet to assist meeting needs; MD notified. Pt family not present to assist in DM ed translation during RD visit today; will return prior to discharge for DM diet ed. LBM 01/23 per RN note. Will continue to monitor. Rec: 1. advance diet as medically indicated to No Concentrated Sweets 2. Glucerna TIDWM if to remain at least on full liquids diet; pending physician verification in EMR 3. routine thiamine, folic acid, B12, and MVI supplementation given Billroth II hx 4. bowel care per rx 5. scaled wt this admit; subsequent weekly wt 6. DM diet ed prior to discharge; hx T2DM A1C 8.7% Addendum: 01/24/23 at [address] Amended: Links added.
--- NOTE | 2023-01-24 13:26 | NUR ---
F/u 01/24: RN TC, pt family present at bedside. Pt/family seen by RD for written/verbal DM diet ed w/ RD contact information provided. Pt reports takes meds per Rx and checks Glu routinely though only once daily; has received education in past regarding diet. RD encouraged pt to check Glu more routinely and f/u w/ PCP regarding DM management. RD encouraged pt/family to contact dietitian's office if nutrition questions/concerns this admit. Addendum: 01/24/23 at [address] Amended: Links added.
[2023-01-24 15:00] VITALS: BP 159/70
[2023-01-24 18:03] LABS: HEMATOCRIT 25.6 % (42.0-52.0); HEMOGLOBIN 8.8 g/dl (14.0-17.9); MEAN CORPUSCULAR HEMOGLOBIN 30.8 PG (27.0-31.0); MEAN CORPUSCULAR HGB CONC 34.4 g/dL (33.0-36.5); MEAN CORPUSCULAR VOLUME 89.5 FL (78-98); MEAN PLATELET VOLUME 7.3 FL (7.4-10.4); PLATELET COUNT 173 X10'3 (140-440); RED BLOOD COUNT 2.86 X10'6 (4.70-6.10); WHITE BLOOD COUNT 12.2 X10'3 (4.5-11.0)
--- NOTE | 2023-01-24 18:21 | NUR ---
Problems reprioritized. Patient report given, questions answered & plan of care reviewed with Jeremy CUEVAS . Patient resting in bed in no acute distress.
--- NOTE | 2023-01-24 18:30 | NUR ---
Patient in room PCU 3020. I have received report from Freda CUEVAS and had the opportunity to ask questions and assume patient care.
[2023-01-24 19:00] VITALS: BP 170/70
[2023-01-24] MEDS: atorvastatin 20mg tablet PO SCH (20:38)
[2023-01-24] MEDS: insulin glargine (Lantus) pen - multi-dose SQ SCH (21:07)
[2023-01-24 23:00] VITALS: BP 165/79
[2023-01-25] VITALS (13 sets, daily range): BP systolic 109–205; BP diastolic 46–136
[2023-01-25] MEDS: piperacillin/tazo 3.375gm/50ml 50 ML IV SCH ×3 (00:25→16:06)
[2023-01-25] MEDS: hydrALAZINE 20mg/ml inj. IV PRN ×3 (00:27→22:22)
[2023-01-25] MEDS: pantoprazole 40MG/NS 100ML BAG 100 ML IV SCH ×3 (01:50→20:56)
[2023-01-25 03:48] LABS: HEMATOCRIT 26.8 % (42.0-52.0); HEMOGLOBIN 9.1 g/dl (14.0-17.9); MEAN CORPUSCULAR HEMOGLOBIN 30.3 PG (27.0-31.0); MEAN CORPUSCULAR HGB CONC 33.7 g/dL (33.0-36.5); MEAN CORPUSCULAR VOLUME 89.8 FL (78-98); MEAN PLATELET VOLUME 7.7 FL (7.4-10.4); PLATELET COUNT 193 X10'3 (140-440); RED BLOOD COUNT 2.99 X10'6 (4.70-6.10); RED CELL DISTRIBUTION WIDTH 15.4 % (11.5-14.5); WHITE BLOOD COUNT 13.4 X10'3 (4.5-11.0)
[2023-01-25 04:32] LABS: ALANINE AMINOTRANSFERASE 27 U/L (12-78); ALBUMIN 2.2 G/DL (3.4-5.0); ALBUMIN/GLOBULIN RATIO 0.7 (1.1-1.5); ALKALINE PHOSPHATASE 48 IU/L (46-116); ANION GAP 11 (8-16); ASPARTATE AMINO TRANSFERASE 26 U/L (10-37); BILIRUBIN,TOTAL 0.6 MG/DL (0.1-1.0); BLOOD UREA NITROGEN 5 MG/DL (7-18); BUN/CREATININE RATIO 7.1 (10.0-20.0); CALCIUM 8.1 MG/DL (8.5-10.1); CHLORIDE 108 MMOL/L (99-107); GLUCOSE 100 MG/DL (70-104); SODIUM 142 MMOL/L (135-145); TOTAL CARBON DIOXIDE 23.3 MMOL/L (24-32); TOTAL PROTEIN 5.4 G/DL (6.4-8.2); eGFR > 90 ML/MIN
--- NOTE | 2023-01-25 06:25 | NUR ---
Problems reprioritized. Patient report given, questions answered & plan of care reviewed with Freda CUEVAS.
[2023-01-25] MEDS: docusate sod 100mg capsule PO SCH ×2 (08:34→20:59)
[2023-01-25] MEDS: thiamine 100mg tablet PO SCH (08:34)
[2023-01-25] MEDS: cyanocobalamin 500mcg tablet PO SCH (08:34)
[2023-01-25] MEDS: losartan 50mg tablet PO SCH (08:34)
[2023-01-25] MEDS: multivitamins, therapeutics tablet PO SCH (08:34)
[2023-01-25] MEDS: NUT.TX.GLUC.INTOLER,LAC-FR,SOY (GLUCERNA) 237 ML PO SCH ×3 (08:35→18:00)
[2023-01-25] MEDS: folic acid 1mg tablet PO SCH (08:35)
[2023-01-25] MEDS: insulin Lispro (HumaLOG) vial - multi-dose SQ SCH ×2 (08:39→14:36)
[2023-01-25] MEDS ORDERED: magnesium 2GM in 50ml NS 50 ML IV PRN (09:35)
[2023-01-25] MEDS ORDERED: magnesium 4gm in 100ml NS 100 ML IV PRN (09:35)
[2023-01-25] MEDS ORDERED: magnesium Cl slow-release 64mg tablet PO PRN (09:35)
[2023-01-25] MEDS ORDERED: potassium Cl 20 mEq SR tablet PO PRN ×2 (09:35)
[2023-01-25] MEDS ORDERED: potassium Cl 40MEQ/1/2NS 520ml 520 ML IV PRN ×2 (09:35)
--- NOTE | 2023-01-25 10:00 | NUR ---
Dr. Jones gave me orders at the bedside for a chest xray, ALBAROE vas US for edema to r/o DVT, and BSS because patient said it was difficult to swallow.
[2023-01-25 10:19] LABS: HEMATOCRIT 25.7 % (42.0-52.0); HEMOGLOBIN 8.6 g/dl (14.0-17.9); MEAN CORPUSCULAR HEMOGLOBIN 30.1 PG (27.0-31.0); MEAN CORPUSCULAR HGB CONC 33.5 g/dL (33.0-36.5); MEAN PLATELET VOLUME 7.5 FL (7.4-10.4); PLATELET COUNT 203 X10'3 (140-440); RED BLOOD COUNT 2.85 X10'6 (4.70-6.10); RED CELL DISTRIBUTION WIDTH 15.1 % (11.5-14.5); WHITE BLOOD COUNT 12.4 X10'3 (4.5-11.0)
--- NOTE | 2023-01-25 10:34 | NUR ---
Page Sent promotional table spacer PAGER ID: [phone] MESSAGE: [id number] Saelee. RAM most recent hemogram results HCT went from 9.1 to 8.6 and HGB from 26.8 to 25.7. Freda @[phone] (112 character message out of a maximum of 240)
[2023-01-25 12:23] LABS: HEMATOCRIT 25.9 % (42.0-52.0); HEMOGLOBIN 8.7 g/dl (14.0-17.9); MEAN CORPUSCULAR HEMOGLOBIN 29.9 PG (27.0-31.0); MEAN CORPUSCULAR HGB CONC 33.6 g/dL (33.0-36.5); MEAN PLATELET VOLUME 7.3 FL (7.4-10.4); PLATELET COUNT 206 X10'3 (140-440); RED BLOOD COUNT 2.91 X10'6 (4.70-6.10); RED CELL DISTRIBUTION WIDTH 15.5 % (11.5-14.5); WHITE BLOOD COUNT 12.1 X10'3 (4.5-11.0)
[2023-01-25] MEDS: POTASSIUM BICARB 20meq eff tab 20 MEQ TABLET.EFF PO PRN ×2 (14:52→18:35)
[2023-01-25] MEDS ORDERED: furosemide 20 MG/2 ML vial IV ONE (16:10)
--- NOTE | 2023-01-25 18:16 | NUR ---
Page Sent promotional table spacer PAGER ID: [phone] MESSAGE: [id number] Mariam. Patient is having bursts of afib with rvr up to 190s. Freda/Jeremy [phone] (85 character message out of a maximum of 240)
[2023-01-25] MEDS ORDERED: diltiazem-NS 100mg/100ml 100 ML IV SCH (18:25)
[2023-01-25] MEDS ORDERED: diltiazem 5mg/ml 5ml inj. IV ONE (18:25)
--- NOTE | 2023-01-25 18:53 | NUR ---
Patient went into afib with RVR at shift change. Patient c/o of being hot. We got a 12 lead EKG signed by Dr. Upton and pushed cardizem for HR into 190s and started a cardizem gtt with central monitoring of HR and BP . Potassium was low this morning but replacement per protocol has been completed. Patient resting in bed in no acute distress noc MASON Luna will continue to monitor patient HR, BP and symptom of patient closely.
[2023-01-25 19:21] LABS: MAGNESIUM 1.8 MG/DL (1.5-2.4)
[2023-01-25] MEDS: K and/or MAG REPLACEMENT MC SCH (20:00)
[2023-01-25] MEDS: atorvastatin 20mg tablet PO SCH (20:59)
[2023-01-25] MEDS: insulin glargine (Lantus) pen - multi-dose SQ SCH (21:08)
[2023-01-26] VITALS (11 sets, daily range): BP systolic 128–184; BP diastolic 58–71
[2023-01-26] MEDS: piperacillin/tazo 3.375gm/50ml 50 ML IV SCH ×2 (00:55→10:17)
--- NOTE | 2023-01-26 06:27 | NUR ---
Problems reprioritized. Patient report given, questions answered & plan of care reviewed with Freda CUEVAS.
[2023-01-26 07:10] LABS: BASOPHILS % (AUTO) 0.2 % (0-1); EOSINOPHILS # (AUTO) 0.2 X10'3 (0-0.9); EOSINOPHILS % (AUTO) 1.8 % (0-6); HEMATOCRIT 26.7 % (42.0-52.0); LYMPHOCYTES # (AUTO) 1.2 X10'3 (1.1-4.8); LYMPHOCYTES % (AUTO) 10.2 % (21-51); MEAN CORPUSCULAR HEMOGLOBIN 29.9 PG (27.0-31.0); MEAN CORPUSCULAR HGB CONC 33.8 g/dL (33.0-36.5); MEAN CORPUSCULAR VOLUME 88.6 FL (78-98); MEAN PLATELET VOLUME 7.2 FL (7.4-10.4); MONOCYTES # (AUTO) 1.1 X10'3 (0-0.9); MONOCYTES % (AUTO) 8.8 % (2-12); NEUTROPHILS # (AUTO) 9.5 X10'3 (1.8-7.7); PLATELET COUNT 242 X10'3 (140-440); RED BLOOD COUNT 3.02 X10'6 (4.70-6.10); RED CELL DISTRIBUTION WIDTH 15.1 % (11.5-14.5); WHITE BLOOD COUNT 12.1 X10'3 (4.5-11.0)
[2023-01-26 07:19] LABS: ALANINE AMINOTRANSFERASE 34 U/L (12-78); ALBUMIN 2.1 G/DL (3.4-5.0); ALBUMIN/GLOBULIN RATIO 0.6 (1.1-1.5); ALKALINE PHOSPHATASE 58 IU/L (46-116); ANION GAP 11 (8-16); ASPARTATE AMINO TRANSFERASE 27 U/L (10-37); BILIRUBIN,TOTAL 0.7 MG/DL (0.1-1.0); BLOOD UREA NITROGEN 7 MG/DL (7-18); BUN/CREATININE RATIO 9.1 (10.0-20.0); CALCIUM 8.3 MG/DL (8.5-10.1); CHLORIDE 107 MMOL/L (99-107); CREATININE 0.77 MG/DL (0.60-1.10); GLUCOSE 127 MG/DL (70-104); POTASSIUM 3.7 MMOL/L (3.5-5.1); SODIUM 143 MMOL/L (135-145); TOTAL CARBON DIOXIDE 24.8 MMOL/L (24-32); TOTAL PROTEIN 5.5 G/DL (6.4-8.2); eGFR > 90 ML/MIN
[2023-01-26] MEDS ORDERED: furosemide 20 MG/2 ML vial IV SCH (08:00)
[2023-01-26] MEDS ORDERED: amLODIPine 5mg tablet PO SCH (08:00)
[2023-01-26] MEDS: K and/or MAG REPLACEMENT MC SCH ×2 (08:00→20:00)
[2023-01-26] MEDS: NUT.TX.GLUC.INTOLER,LAC-FR,SOY (GLUCERNA) 237 ML PO SCH ×3 (08:00→18:51)
[2023-01-26] MEDS: pantoprazole 40MG/NS 100ML BAG 100 ML IV SCH (10:05)
[2023-01-26] MEDS: folic acid 1mg tablet PO SCH (10:05)
[2023-01-26] MEDS: losartan 50mg tablet PO SCH (10:05)
[2023-01-26] MEDS: cyanocobalamin 500mcg tablet PO SCH (10:05)
[2023-01-26] MEDS: docusate sod 100mg capsule PO SCH ×2 (10:05→20:18)
[2023-01-26] MEDS: hydrALAZINE 20mg/ml inj. IV PRN ×2 (10:06→22:59)
[2023-01-26] MEDS ORDERED: morphine 2 MG/ML inj. syringe IV PRN (10:10)
[2023-01-26] MEDS ORDERED: HYDROcodone/acetaminophen 5mg/325mg tablet PO PRN (10:10)
[2023-01-26] MEDS: insulin Lispro (HumaLOG) vial - multi-dose SQ SCH ×3 (10:16→19:16)
[2023-01-26] MEDS: multivitamins, therapeutics tablet PO SCH (10:17)
[2023-01-26] MEDS: thiamine 100mg tablet PO SCH (10:17)
[2023-01-26] MEDS: POTASSIUM BICARB 20meq eff tab 20 MEQ TABLET.EFF PO PRN (10:17)
[2023-01-26] MEDS: HYDROchlorothiazide 25mg tablet PO SCH (12:21)
--- NOTE | 2023-01-26 15:34 | NUR ---
Page Sent promotional table spacer PAGER ID: [phone] MESSAGE: [id number] Mariam. Patient BP remains HTN 215/105. after all BP meds given . I am going to give hydralizine again but I don;t think it will bring it down enough. Please advise Freda@[phone] (183 character message out of a maximum of 240)
[2023-01-26] MEDS ORDERED: niCARdipine I.V. 50 MG in normal saline 250ml IV soln 230 ML IV SCH (15:35)
[2023-01-26] MEDS ORDERED: heparin 10,000 units/1 ML INJ IV PRN (15:40)
[2023-01-26] MEDS ORDERED: heparin 10,000 units/1 ML INJ IV ONE (15:40)
[2023-01-26] MEDS ORDERED: heparin 25,000 UNIT/250ml bag 250 ML IV PRN (15:40)
--- NOTE | 2023-01-26 15:40 | NUR ---
Page Sent promotional table spacer PAGER ID: [phone] MESSAGE: [id number] Mariam. I retook a manual BP on patient and got 128/58. Freda @[phone] (75 character message out of a maximum of 240) CLOSE [X] SEND ANOTHER PAGE Thank you for visiting [facility] promotional table spacer promotional table spacer
[2023-01-26] MEDS ORDERED: niCARDipine-NS 40mg/200ml IVPB 200 ML IV SCH (15:51)
--- NOTE | 2023-01-26 18:23 | NUR ---
Problems reprioritized. Patient report given, questions answered & plan of care reviewed with Jeremy Eubanks. Patient resting comfortably no acute distress.
[2023-01-26] MEDS: enoxaparin 40mg/0.4ml syringe SUBCUT SCH (20:18)
[2023-01-26] MEDS: pantoprazole 40mg Tablet.DR PO SCH (20:18)
[2023-01-26] MEDS: atorvastatin 20mg tablet PO SCH (20:18)
[2023-01-26] MEDS: insulin glargine (Lantus) pen - multi-dose SQ SCH (21:23)
[2023-01-27] VITALS (7 sets, daily range): BP systolic 134–187; BP diastolic 50–79
[2023-01-27] MEDS: POTASSIUM BICARB 20meq eff tab 20 MEQ TABLET.EFF PO PRN (00:15)
[2023-01-27 03:07] LABS: BASOPHILS % (AUTO) 0.4 % (0-1); EOSINOPHILS # (AUTO) 0.2 X10'3 (0-0.9); EOSINOPHILS % (AUTO) 1.8 % (0-6); HEMATOCRIT 27.2 % (42.0-52.0); HEMOGLOBIN 8.8 g/dl (14.0-17.9); LYMPHOCYTES # (AUTO) 1.4 X10'3 (1.1-4.8); LYMPHOCYTES % (AUTO) 10.8 % (21-51); MEAN CORPUSCULAR HEMOGLOBIN 28.7 PG (27.0-31.0); MEAN CORPUSCULAR HGB CONC 32.4 g/dL (33.0-36.5); MEAN CORPUSCULAR VOLUME 88.7 FL (78-98); MONOCYTES # (AUTO) 1.1 X10'3 (0-0.9); MONOCYTES % (AUTO) 8.5 % (2-12); NEUTROPHILS # (AUTO) 9.9 X10'3 (1.8-7.7); NEUTROPHILS % (AUTO) 78.5 % (42-75); PLATELET COUNT 301 X10'3 (140-440); RED BLOOD COUNT 3.07 X10'6 (4.70-6.10); RED CELL DISTRIBUTION WIDTH 15.3 % (11.5-14.5); WHITE BLOOD COUNT 12.6 X10'3 (4.5-11.0)
[2023-01-27 03:16] LABS: ANION GAP 9 (8-16); BILIRUBIN,TOTAL 0.5 MG/DL (0.1-1.0); BLOOD UREA NITROGEN 10 MG/DL (7-18); BUN/CREATININE RATIO 13.3 (10.0-20.0); CALCIUM 8.8 MG/DL (8.5-10.1); CHLORIDE 105 MMOL/L (99-107); CREATININE 0.75 MG/DL (0.60-1.10); GLUCOSE 108 MG/DL (70-104); MAGNESIUM 1.9 MG/DL (1.5-2.4); POTASSIUM 3.6 MMOL/L (3.5-5.1); SODIUM 140 MMOL/L (135-145); TOTAL CARBON DIOXIDE 26.3 MMOL/L (24-32); TOTAL PROTEIN 5.7 G/DL (6.4-8.2); eGFR > 90 ML/MIN
[2023-01-27 03:17] LABS: ALANINE AMINOTRANSFERASE 57 U/L (12-78); ALBUMIN 2.1 G/DL (3.4-5.0); ALBUMIN/GLOBULIN RATIO 0.6 (1.1-1.5); ALKALINE PHOSPHATASE 67 IU/L (46-116); ASPARTATE AMINO TRANSFERASE 42 U/L (10-37)
--- NOTE | 2023-01-27 06:26 | NUR ---
Problems reprioritized. Patient report given, questions answered & plan of care reviewed with Melinda CUEVAS.
[2023-01-27] MEDS: docusate sod 100mg capsule PO SCH (08:00)
[2023-01-27] MEDS: K and/or MAG REPLACEMENT MC SCH ×2 (08:00→20:00)
[2023-01-27] MEDS: NUT.TX.GLUC.INTOLER,LAC-FR,SOY (GLUCERNA) 237 ML PO SCH ×3 (08:00→18:03)
[2023-01-27] MEDS: enoxaparin 40mg/0.4ml syringe SUBCUT SCH ×2 (08:44→19:41)
[2023-01-27] MEDS: pantoprazole 40mg Tablet.DR PO SCH ×2 (08:44→19:40)
[2023-01-27] MEDS: thiamine 100mg tablet PO SCH (08:45)
[2023-01-27] MEDS: multivitamins, therapeutics tablet PO SCH (08:45)
[2023-01-27] MEDS: folic acid 1mg tablet PO SCH (08:45)
[2023-01-27] MEDS: cyanocobalamin 500mcg tablet PO SCH (08:45)
[2023-01-27] MEDS: HYDROchlorothiazide 25mg tablet PO SCH (08:45)
[2023-01-27] MEDS: losartan 50mg tablet PO SCH (08:46)
[2023-01-27] MEDS: insulin Lispro (HumaLOG) vial - multi-dose SQ SCH ×3 (08:50→19:38)
[2023-01-27] MEDS ORDERED: clindamycin 1% topical susp 60ml bottle TP SCH (09:50)
--- NOTE | 2023-01-27 12:41 | NUR ---
Reassessment: Pt s/p BSS 01/[address] rec[address] MM5 food with thin liquids which was advanced to SB6 after f/u BSS this morning. Pt eating fairly well once advanced from liquid diet, documented with average 65% PO intake meeting 99% estimated energy needs and 100% estimated protein needs. Pt receiving a Glucerna TID though mostly refusing with the exception of 25% PO intake of two ONS, including breakfast this morning. Recommend discontinuing ONS if pt continues with adequate PO intake of meals and/or refuses ONS. LBM /, large per EMR. No further nutrition intervention implemented at this time. Will continue to follow. Recommendations: 1. Continue SB6 diet with thin liquids per ST recs 2. Glucerna TIDWM; discontinue if pt continues with adequate meal intake and/or refuses ONS 3. Routine thiamine, folic acid, vitamin B12, and MVI supplementation given Billroth II hx 4. Bowel care per rx 5. Scaled wt this admit; subsequent weekly wt Addendum: 01/27/23 at [address] Amended: Links added.
[2023-01-27] MEDS ORDERED: mupirocin 2% cream 15gm TP SCH (13:00)
[2023-01-27] MEDS: amLODIPine 5mg tablet PO SCH (13:17)
[2023-01-27] MEDS: mupirocin 2% ointment 22GM TP SCH ×2 (13:22→21:37)
--- NOTE | 2023-01-27 17:03 | NUR ---
Charting by Jo RAZO reviewed by Esperanza Narayanan RN.
--- NOTE | 2023-01-27 18:26 | NUR ---
Problems reprioritized. Patient report given, questions answered & plan of care reviewed with MASON Osorio.
--- NOTE | 2023-01-27 21:29 | NUR ---
Student documentation: I have reviewed interventions, assessments performed and documented by Laura RAZO [facility].
[2023-01-27] MEDS: insulin glargine (Lantus) pen - multi-dose SQ SCH (21:33)
[2023-01-27] MEDS: atorvastatin 20mg tablet PO SCH (21:35)
[2023-01-27] MEDS: cephalexin 250mg capsule PO SCH (21:35)
--- NOTE | 2023-01-28 01:17 | NUR ---
THE KEFLEX WAS GIVEN LATE FOR THIS PATIENT DOES IT NEED TO BE RE-TIMED OR DOES THE RULE OF HALVES APPLY AND I CAN GIVE IT 4 HOURS AFTER LAST DOSE?
[2023-01-28] MEDS: cephalexin 250mg capsule PO SCH ×2 (01:47→08:46)
[2023-01-28 02:00] VITALS: BP 137/66
--- NOTE | 2023-01-28 06:15 | NUR ---
Problems reprioritized. Patient report given, questions answered & plan of care reviewed with MASON ALEJANDRO.
[2023-01-28 06:49] LABS: BASOPHILS % (AUTO) 0.3 % (0-1); EOSINOPHILS # (AUTO) 0.2 X10'3 (0-0.9); EOSINOPHILS % (AUTO) 2.4 % (0-6); LYMPHOCYTES # (AUTO) 1.2 X10'3 (1.1-4.8); LYMPHOCYTES % (AUTO) 12.2 % (21-51); MEAN CORPUSCULAR HEMOGLOBIN 29.2 PG (27.0-31.0); MEAN CORPUSCULAR HGB CONC 33.3 g/dL (33.0-36.5); MEAN CORPUSCULAR VOLUME 87.9 FL (78-98); MONOCYTES # (AUTO) 1.1 X10'3 (0-0.9); MONOCYTES % (AUTO) 11.6 % (2-12); NEUTROPHILS # (AUTO) 7.3 X10'3 (1.8-7.7); NEUTROPHILS % (AUTO) 73.5 % (42-75); PLATELET COUNT 373 X10'3 (140-440); RED BLOOD COUNT 3.07 X10'6 (4.70-6.10); RED CELL DISTRIBUTION WIDTH 15.1 % (11.5-14.5); WHITE BLOOD COUNT 9.9 X10'3 (4.5-11.0)
[2023-01-28 07:06] LABS: ALANINE AMINOTRANSFERASE 76 U/L (12-78); ALBUMIN 2.1 G/DL (3.4-5.0); ALBUMIN/GLOBULIN RATIO 0.6 (1.1-1.5); ALKALINE PHOSPHATASE 63 IU/L (46-116); ANION GAP 8 (8-16); ASPARTATE AMINO TRANSFERASE 51 U/L (10-37); BILIRUBIN,TOTAL 0.4 MG/DL (0.1-1.0); BLOOD UREA NITROGEN 9 MG/DL (7-18); BUN/CREATININE RATIO 12.9 (10.0-20.0); CALCIUM 8.8 MG/DL (8.5-10.1); CHLORIDE 104 MMOL/L (99-107); GLUCOSE 109 MG/DL (70-104); MAGNESIUM 1.9 MG/DL (1.5-2.4); POTASSIUM 3.7 MMOL/L (3.5-5.1); SODIUM 139 MMOL/L (135-145); TOTAL CARBON DIOXIDE 27.1 MMOL/L (24-32); TOTAL PROTEIN 5.8 G/DL (6.4-8.2); eGFR > 90 ML/MIN
[2023-01-28 07:30] VITALS: BP 148/77
[2023-01-28] MEDS: K and/or MAG REPLACEMENT MC SCH (08:00)
[2023-01-28] MEDS: NUT.TX.GLUC.INTOLER,LAC-FR,SOY (GLUCERNA) 237 ML PO SCH ×2 (08:00→13:10)
[2023-01-28] MEDS: enoxaparin 40mg/0.4ml syringe SUBCUT SCH (08:45)
[2023-01-28] MEDS: multivitamins, therapeutics tablet PO SCH (08:46)
[2023-01-28] MEDS: thiamine 100mg tablet PO SCH (08:46)
[2023-01-28] MEDS: folic acid 1mg tablet PO SCH (08:46)
[2023-01-28] MEDS: cyanocobalamin 500mcg tablet PO SCH (08:47)
[2023-01-28] MEDS: amLODIPine 5mg tablet PO SCH (08:47)
[2023-01-28] MEDS: HYDROchlorothiazide 25mg tablet PO SCH (08:47)
[2023-01-28] MEDS: pantoprazole 40mg Tablet.DR PO SCH (08:47)
[2023-01-28] MEDS: losartan 50mg tablet PO SCH (08:48)
[2023-01-28] MEDS: mupirocin 2% ointment 22GM TP SCH ×2 (08:52→13:10)
[2023-01-28] MEDS: insulin Lispro (HumaLOG) vial - multi-dose SQ SCH (08:59)
[2023-01-28] MEDS ORDERED: CEPH250C PO (10:45)
[2023-01-28] MEDS ORDERED: FERR324T4 PO (10:45)
[2023-01-28] MEDS ORDERED: MUPI22OI30 TP (10:45)
[2023-01-28] MEDS ORDERED: ENOX40DI11 SUBCUT (10:45)
[2023-01-28 10:47] VITALS: BP 158/70
[2023-01-28] MEDS ORDERED: ENOX60SY7 SQ (10:54)
--- NOTE | 2023-01-28 13:26 | NUR ---
Patient stable and appropriate for discharge home with family. IV removed, air sampling and monitoring removed. New RX e-scripted to preferred pharmacy. Lovenox education and instructions given and demonstrated for patient and his family in the room, verbalized understanding. All discharge instructions and education given and reviewed with patient, all questions answered.
[2023-01-28] MEDS ORDERED: HYDR25TA5 PO (16:08)
== END 2023-01-28 13:30 | disposition home health service (06) | DRG 253 ==
LOC: ER 17:36 → ED HOLD 21:13 → ORTHO 4S 01-20 09:14 → CICU 2S 01-21 03:07 → PCU 3S 01-23 20:01
PROVIDERS: ADMIT Family Medicine; ATTEND Family Medicine
PROC: B4201ZZ Computerized Tomography (CT Scan) of Abdominal Aorta using Low Osmolar Contrast (ICD-10-PCS; principal; 2023-01-21)
PROC: B4241ZZ Computerized Tomography (CT Scan) of Superior Mesenteric Artery using Low Osmolar Contrast (ICD-10-PCS; 2023-01-21)
PROC: B4281ZZ Computerized Tomography (CT Scan) of Bilateral Renal Arteries using Low Osmolar Contrast (ICD-10-PCS; 2023-01-21)
PROC: B42C1ZZ Computerized Tomography (CT Scan) of Pelvic Arteries using Low Osmolar Contrast (ICD-10-PCS; 2023-01-21)
PROC: B42H1ZZ Computerized Tomography (CT Scan) of Bilateral Lower Extremity Arteries using Low Osmolar Contrast (ICD-10-PCS; 2023-01-21)
PROC: B4211ZZ Computerized Tomography (CT Scan) of Celiac Artery using Low Osmolar Contrast (ICD-10-PCS; 2023-01-21)
PROC: 30233N1 Transfusion of Nonautologous Red Blood Cells into Peripheral Vein, Percutaneous Approach (ICD-10-PCS; 2023-01-21)
PROC: 0W3P8ZZ Control Bleeding in Gastrointestinal Tract, Via Natural or Artificial Opening Endoscopic (ICD-10-PCS; 2023-01-21)
PROC: B41F1ZZ Fluoroscopy of Right Lower Extremity Arteries using Low Osmolar Contrast (ICD-10-PCS; 2023-01-21)
PROC: B31N1ZZ Fluoroscopy of Other Upper Arteries using Low Osmolar Contrast (ICD-10-PCS; 2023-01-21)
PROC: 05HY33Z Insertion of Infusion Device into Upper Vein, Percutaneous Approach (ICD-10-PCS; 2023-01-21)
DX: K92.2 Gastrointestinal hemorrhage, unspecified (principal); R57.8 Other shock; E87.0 Hyperosmolality and hypernatremia; I82.621 Acute embolism and thrombosis of deep veins of right upper extremity; N17.9 Acute kidney failure, unspecified; D72.829 Elevated white blood cell count, unspecified; E86.1 Hypovolemia; I48.91 Unspecified atrial fibrillation; E11.22 Type 2 diabetes mellitus with diabetic chronic kidney disease; N18.9 Chronic kidney disease, unspecified; I12.9 Hypertensive chronic kidney disease with stage 1 through stage 4 chronic kidney disease, or unspecified chronic kidney disease; E11.65 Type 2 diabetes mellitus with hyperglycemia; E88.09 Other disorders of plasma-protein metabolism, not elsewhere classified; E78.00 Pure hypercholesterolemia, unspecified; D62 Acute posthemorrhagic anemia; E87.6 Hypokalemia; Z87.11 Personal history of peptic ulcer disease; Z79.4 Long term (current) use of insulin; Z79.84 Long term (current) use of oral hypoglycemic drugs; Z79.899 Other long term (current) drug therapy
CPT/HCPCS: 36245; 36415; 36430; 43239; 43255; 71045; 74174; 75726; 76937; 78278; 80053; 80061; 80320; 82550; 82948; 83036; 83540; 83605; 83690; 83735; 84100; 84145; 84443; 84484; 85025; 85027; 85610; 85651; 85730; 86885; 86900; 86901; 86920; 87040; 87081; 92508; 92616; 93005; 93970; 97110; 97116; 97161; 97530; 99152; 99153; 99285; A4349; A5200; A6213; A6449; A9560; C1751; C1760; C1769; C1894; C9113; G0269; G0378; J0171; J0282; J0360; J1610; J1642; J1644; J1650; J1815; J1940; J2250; J2270; J2354; J2405; J2543; J3010; J3370; J3430; J3490; J7030; J7040; J7050; J7120; P9016; Q0161; Q9967

== ENCOUNTER 2023-01-30 06:07 | Emergency (ER) | payer MEDICAID ==
[~2023-01-30] VITALS: Ht 160 cm; Wt 81.0 kg
[~2023-01-30 06:07] MED LIST changes: +CEPH250C PO; +ENOX60SY7 SQ; -FENO160T13 PO; +FERR324T4 PO; +HYDR25TA5 PO; -LISI20TA28 PO; +LOSA100T58 PO; -MIRT-88 PO; +MUPI22OI30 TP; -PIOG45TA65 PO; -RISP2TAB44 PO; +SEMA3TAB4 PO; -TEMA15CA5 PO
[2023-01-30 06:50] LABS: BASOPHILS % (AUTO) 0.2 % (0-1); EOSINOPHILS # (AUTO) 0.1 X10'3 (0-0.9); EOSINOPHILS % (AUTO) 0.9 % (0-6); HEMATOCRIT 26.9 % (42.0-52.0); HEMOGLOBIN 8.9 g/dl (14.0-17.9); LYMPHOCYTES # (AUTO) 1.3 X10'3 (1.1-4.8); LYMPHOCYTES % (AUTO) 10.5 % (21-51); MEAN CORPUSCULAR HEMOGLOBIN 29.3 PG (27.0-31.0); MEAN CORPUSCULAR HGB CONC 33.2 g/dL (33.0-36.5); MEAN CORPUSCULAR VOLUME 88.1 FL (78-98); MEAN PLATELET VOLUME 6.2 FL (7.4-10.4); MONOCYTES # (AUTO) 1.4 X10'3 (0-0.9); MONOCYTES % (AUTO) 10.8 % (2-12); NEUTROPHILS # (AUTO) 9.8 X10'3 (1.8-7.7); NEUTROPHILS % (AUTO) 77.6 % (42-75); PLATELET COUNT 485 X10'3 (140-440); RED BLOOD COUNT 3.05 X10'6 (4.70-6.10); RED CELL DISTRIBUTION WIDTH 14.9 % (11.5-14.5); WHITE BLOOD COUNT 12.6 X10'3 (4.5-11.0)
[2023-01-30 07:12] LABS: ALANINE AMINOTRANSFERASE 68 U/L (12-78); ALBUMIN 2.3 G/DL (3.4-5.0); ALBUMIN/GLOBULIN RATIO 0.6 (1.1-1.5); ALKALINE PHOSPHATASE 64 IU/L (46-116); ANION GAP 8 (8-16); ASPARTATE AMINO TRANSFERASE 42 U/L (10-37); BILIRUBIN,TOTAL 0.3 MG/DL (0.1-1.0); BLOOD UREA NITROGEN 7 MG/DL (7-18); BUN/CREATININE RATIO 10.8 (10.0-20.0); CALCIUM 9.1 MG/DL (8.5-10.1); CHLORIDE 104 MMOL/L (99-107); CREATININE 0.65 MG/DL (0.60-1.10); GLUCOSE 79 MG/DL (70-104); POTASSIUM 3.5 MMOL/L (3.5-5.1); SODIUM 138 MMOL/L (135-145); TOTAL PROTEIN 6.4 G/DL (6.4-8.2); eGFR > 90 ML/MIN
[2023-01-30 10:02] LABS: CLARITY,URINE CLEAR (Clear); COLOR,URINE YELLOW (Yellow); GLUCOSE, URINE NEGATIVE (Neg); KETONES,URINE 15 mg/dl (Neg); LEUKOCYTE ESTERASE ,URINE NEGATIVE (Neg); NITRITES, URINE NEGATIVE (Neg); OCCULT BLOOD,URINE NEGATIVE (Neg); PROTEIN,URINE 100 mg/dl (Neg); UROBILINOGEN,URINE 0.2 E.U/dL (0.2-1.0)
[2023-01-30 10:06] LABS: UA COLLECTION TYPE URINAL
[2023-01-30 10:07] LABS: SQUAMOUS EPITHELIAL CELL,UR FEW /LPF (FEW)
[2023-01-30 10:08] LABS: BACTERIA,URINE 1+ /HPF (Neg); RBC,URINE 0-2 /HPF (0-2); WBC,URINE 0-4 /HPF (0-4)
[2023-01-30 11:18] VITALS: BP 135/67
== END 2023-01-30 11:20 | disposition home or self-care (01) ==
LOC: ER 06:08
DX: D64.9 Anemia, unspecified (principal); I82.621 Acute embolism and thrombosis of deep veins of right upper extremity; E78.00 Pure hypercholesterolemia, unspecified; I10 Essential (primary) hypertension; K21.9 Gastro-esophageal reflux disease without esophagitis; E11.9 Type 2 diabetes mellitus without complications; Z79.899 Other long term (current) drug therapy; Z79.84 Long term (current) use of oral hypoglycemic drugs
CPT/HCPCS: 36415; 71045; 80053; 81001; 83880; 84484; 85025; 93005; 99285

== ENCOUNTER 2023-05-12 17:30 | Emergency (ER) | payer MEDICAID ==
[~2023-05-12] VITALS: Ht 165.1 cm; Wt 87.3 kg
[2023-05-12 18:26] VITALS: BP 172/86; PULSE 84; RESP 14; TEMP 98; O2SAT 97
[2023-05-12 19:47] LABS: BASOPHILS % (AUTO) 0.3 % (0-1); EOSINOPHILS % (AUTO) 0.6 % (0-6); HEMATOCRIT 35.4 % (42.0-52.0); HEMOGLOBIN 11.3 g/dl (14.0-17.9); LYMPHOCYTES # (AUTO) 1.8 X10'3 (1.1-4.8); LYMPHOCYTES % (AUTO) 25.6 % (21-51); MEAN CORPUSCULAR HEMOGLOBIN 27.5 PG (27.0-31.0); MEAN CORPUSCULAR VOLUME 85.8 FL (78-98); MEAN PLATELET VOLUME 6.7 FL (7.4-10.4); MONOCYTES # (AUTO) 0.5 X10'3 (0-0.9); MONOCYTES % (AUTO) 7.7 % (2-12); NEUTROPHILS # (AUTO) 4.5 X10'3 (1.8-7.7); NEUTROPHILS % (AUTO) 65.8 % (42-75); PLATELET COUNT 241 X10'3 (140-440); RED BLOOD COUNT 4.13 X10'6 (4.70-6.10); RED CELL DISTRIBUTION WIDTH 17.1 % (11.5-14.5); WHITE BLOOD COUNT 6.9 X10'3 (4.5-11.0)
[2023-05-12 19:55] LABS: ALANINE AMINOTRANSFERASE 43 U/L (12-78); ALBUMIN 3.4 G/DL (3.4-5.0); ALKALINE PHOSPHATASE 60 IU/L (46-116); ANION GAP 6 (8-16); ASPARTATE AMINO TRANSFERASE 25 U/L (10-37); BILIRUBIN,TOTAL 0.2 MG/DL (0.1-1.0); BLOOD UREA NITROGEN 21 MG/DL (7-18); BUN/CREATININE RATIO 21.9 (10.0-20.0); CHLORIDE 110 MMOL/L (99-107); CREATININE 0.96 MG/DL (0.60-1.10); GLUCOSE 127 MG/DL (70-104); LIPASE 114 U/L (73-393); POTASSIUM 4.5 MMOL/L (3.5-5.1); SODIUM 143 MMOL/L (135-145); TOTAL CARBON DIOXIDE 26.8 MMOL/L (24-32); TOTAL PROTEIN 6.9 G/DL (6.4-8.2); eCRCL 69 ML/MIN; eGFR 79 ML/MIN
[2023-05-12] MEDS ORDERED: iohexol 300mg/ml 100ml inj. ONE (22:04)
[2023-05-13] MEDS ORDERED: PHEN1SUP96 PR (00:09)
== END 2023-05-13 00:17 | disposition home or self-care (01) ==
LOC: ER 17:31
DX: K64.9 Unspecified hemorrhoids (principal); K62.5 Hemorrhage of anus and rectum; E78.00 Pure hypercholesterolemia, unspecified; I10 Essential (primary) hypertension; E11.9 Type 2 diabetes mellitus without complications; Z87.19 Personal history of other diseases of the digestive system; Z79.2 Long term (current) use of antibiotics; Z79.899 Other long term (current) drug therapy
CPT/HCPCS: 36415; 74177; 80053; 83690; 85025; 99285; J3490; J7030; Q9967

== ENCOUNTER 2024-12-18 07:12 | Inpatient (IN) | payer MEDICAID ==
[~2024-12-18] VITALS: Ht 165.1 cm; Wt 84.3 kg
[~2024-12-18 07:12] MED LIST changes: +PHEN1SUP96 PR
[2024-12-18] MEDS: normal saline 1000ml 1,000 ML IV ONE (07:51)
[2024-12-18 08:04] LABS: BASOPHILS % (AUTO) 0.2 % (0-1); EOSINOPHILS % (AUTO) 0.7 % (0-6); HEMATOCRIT 36.6 % (42.0-52.0); HEMOGLOBIN 11.7 g/dl (14.0-17.9); LYMPHOCYTES # (AUTO) 1.2 X10'3 (1.1-4.8); LYMPHOCYTES % (AUTO) 19.6 % (21-51); MEAN CORPUSCULAR HEMOGLOBIN 27.6 PG (27.0-31.0); MEAN CORPUSCULAR HGB CONC 31.8 g/dL (33.0-36.5); MEAN CORPUSCULAR VOLUME 86.7 FL (78-98); MEAN PLATELET VOLUME 7.4 FL (7.4-10.4); MONOCYTES # (AUTO) 0.6 X10'3 (0-0.9); MONOCYTES % (AUTO) 10.1 % (2-12); NEUTROPHILS # (AUTO) 4.4 X10'3 (1.8-7.7); NEUTROPHILS % (AUTO) 69.4 % (42-75); PLATELET COUNT 216 X10'3 (140-440); RED BLOOD COUNT 4.23 X10'6 (4.70-6.10); RED CELL DISTRIBUTION WIDTH 16.2 % (11.5-14.5); WHITE BLOOD COUNT 6.3 X10'3 (4.5-11.0)
[2024-12-18 08:07] LABS: ANION GAP 11 (8-16); BLOOD UREA NITROGEN 34 MG/DL (7-18); BUN/CREATININE RATIO 39.5 (10.0-20.0); CALCIUM 8.8 MG/DL (8.5-10.1); CHLORIDE 111 MMOL/L (99-107); CREATININE 0.86 MG/DL (0.60-1.10); GLUCOSE 216 MG/DL (70-104); SODIUM 144 MMOL/L (135-145); TOTAL CARBON DIOXIDE 22.3 MMOL/L (24-32); eCRCL 75 ML/MIN; eGFR 90 ML/MIN
[2024-12-18 08:12] LABS: APTT 26 SECONDS (22-32); PROTHROMBIN TIME 10.4 SECONDS (9.0-12.0)
[2024-12-18] MEDS ORDERED: pantoprazole 40mg IV 80 MG in normal saline 100ml IV soln 100 ML IV ONE (11:05)
[2024-12-18] MEDS: pantoprazole 40MG/NS 100ML BAG 100 ML IV SCH (11:35)
[2024-12-18] MEDS: pantoprazole 40 MG vial IV ONE (11:35)
[2024-12-18 11:48] LABS: OCCULT BLOOD STOOL POSITIVE (Neg)
[2024-12-18] MEDS ORDERED: bisacodyl 10mg suppository rectal RC PRN (12:50)
[2024-12-18] MEDS ORDERED: magnesium sulf-water 4G/100mL 100 ML IV PRN (12:50)
[2024-12-18] MEDS ORDERED: mag hydrox/Alum hydrox/simeth 30ml oral suspension PO PRN (12:50)
[2024-12-18] MEDS ORDERED: magnesium sulf-water 2g/50mL 50 ML IV PRN (12:50)
[2024-12-18] MEDS ORDERED: magnesium Cl slow-release 64mg tablet PO PRN (12:50)
[2024-12-18] MEDS ORDERED: potassium Cl 40MEQ/1/2NS 520ml 520 ML IV PRN (12:50)
[2024-12-18] MEDS ORDERED: potassium Cl 20 mEq SR tablet PO PRN (12:50)
[2024-12-18] MEDS ORDERED: ondansetron/PF 4mg/2ml inj IV PRN (12:50)
[2024-12-18] MEDS ORDERED: HYDROmorphone/PF 0.2 MG/ML SYRINGE IV PRN (12:50)
[2024-12-18] MEDS ORDERED: morphine 2 MG/ML inj. syringe IV PRN ×2 (12:50)
[2024-12-18] MEDS ORDERED: magnesium hydroxide 30ml (MOM) UD suspension PO PRN (12:50)
[2024-12-18] MEDS ORDERED: acetaminophen 325mg tablet PO PRN (12:50)
[2024-12-18] MEDS ORDERED: HYDROmorphone inj. 0.5 MG/0.5 ML DISP.SYRIN IV PRN (12:50)
[2024-12-18 13:11] LABS: HEMOGLOBIN A1C 9.6 % (4.5-6.2)
[2024-12-18 13:15] LABS: PRO BRAIN NATRIURETIC PEPTIDE 149 PG/ML (0-125)
[2024-12-18 13:41] LABS: HEMATOCRIT 33.2 % (42.0-52.0); HEMOGLOBIN 10.7 g/dl (14.0-17.9); MEAN CORPUSCULAR HGB CONC 32.1 g/dL (33.0-36.5); MEAN CORPUSCULAR VOLUME 87.1 FL (78-98); MEAN PLATELET VOLUME 7.2 FL (7.4-10.4); PLATELET COUNT 195 X10'3 (140-440); RED BLOOD COUNT 3.81 X10'6 (4.70-6.10); RED CELL DISTRIBUTION WIDTH 16.3 % (11.5-14.5); WHITE BLOOD COUNT 6.5 X10'3 (4.5-11.0)
[2024-12-18 14:15] VITALS: RESP 18; O2SAT 98
[2024-12-18 14:29] VITALS: BP 175/89; PULSE 75; RESP 18; TEMP 98.4; O2SAT 98
[2024-12-18] MEDS ORDERED: DEXTROSE 15 GM of carb/4 tabs (each vial/BOTTLE has 4 tablets) PO PRN ×2 (15:25)
[2024-12-18] MEDS ORDERED: dextrose 50%-water 50ml dispensing syringe IV PRN ×2 (15:25)
[2024-12-18] MEDS ORDERED: glucagon, human recombinant 1mg kit SUBCUT PRN (15:25)
[2024-12-18] MEDS: hydrocortisone acetate 25mg rectal suppository RC SCH (15:30)
[2024-12-18] MEDS: HYDROchlorothiazide 25mg tablet PO SCH (15:31)
[2024-12-18] MEDS: INSULIN LISPRO 100 UNIT/ML INSULN.PEN MULTI-DOSE SQ SCH (17:00)
[2024-12-18] MEDS: metFORMIN 500mg tablet PO SCH (17:16)
[2024-12-18 17:48] LABS: BILIRUBIN,URINE NEGATIVE (Neg); CLARITY,URINE CLEAR (Clear); COLOR,URINE YELLOW (Yellow); GLUCOSE, URINE NEGATIVE (Neg); KETONES,URINE NEGATIVE (Neg); LEUKOCYTE ESTERASE ,URINE NEGATIVE (Neg); NITRITES, URINE NEGATIVE (Neg); OCCULT BLOOD,URINE NEGATIVE (Neg); PROTEIN,URINE 100 mg/dl (Neg); UROBILINOGEN,URINE 0.2 E.U/dL (0.2-1.0)
[2024-12-18 17:54] LABS: UA COLLECTION TYPE URINAL
[2024-12-18 17:56] LABS: BACTERIA,URINE NONE SEEN /HPF (Neg); RBC,URINE 0-2 /HPF (0-2); SQUAMOUS EPITHELIAL CELL,UR NONE SEEN /LPF (FEW); WBC,URINE NONE SEEN /HPF (0-4)
[2024-12-18 18:00] VITALS: BP 147/63; PULSE 80; RESP 19; TEMP 98.1; O2SAT 96
[2024-12-18 20:00] VITALS: RESP 19; O2SAT 96
[2024-12-18] MEDS: K and/or MAG REPLACEMENT MC SCH (20:00)
[2024-12-18] MEDS: docusate sod 100mg capsule PO SCH (20:00)
[2024-12-18] MEDS: atorvastatin 20mg tablet PO SCH (20:34)
[2024-12-18 21:07] LABS: HEMATOCRIT 34.2 % (42.0-52.0); HEMOGLOBIN 10.8 g/dl (14.0-17.9); MEAN CORPUSCULAR HEMOGLOBIN 27.3 PG (27.0-31.0); MEAN CORPUSCULAR HGB CONC 31.5 g/dL (33.0-36.5); MEAN CORPUSCULAR VOLUME 86.7 FL (78-98); MEAN PLATELET VOLUME 7.2 FL (7.4-10.4); PLATELET COUNT 216 X10'3 (140-440); RED BLOOD COUNT 3.95 X10'6 (4.70-6.10); RED CELL DISTRIBUTION WIDTH 16.2 % (11.5-14.5); WHITE BLOOD COUNT 6.8 X10'3 (4.5-11.0)
[2024-12-18 22:00] VITALS: BP 155/66; PULSE 68; RESP 19; TEMP 97.9; O2SAT 98
[2024-12-18] MEDS: insulin glargine (Lantus) pen - multi-dose SQ SCH (22:05)
[2024-12-19] VITALS (20 sets, daily range): BP systolic 140–183; BP diastolic 58–99; PULSE 59–84; RESP 14–21; TEMP 97.1–98.9; O2SAT 92–100
[2024-12-19 05:24] LABS: BASOPHILS % (AUTO) 0.2 % (0-1); EOSINOPHILS # (AUTO) 0.1 X10'3 (0-0.9); EOSINOPHILS % (AUTO) 1.3 % (0-6); HEMATOCRIT 32.2 % (42.0-52.0); HEMOGLOBIN 10.5 g/dl (14.0-17.9); LYMPHOCYTES % (AUTO) 29.6 % (21-51); MEAN CORPUSCULAR HEMOGLOBIN 28.2 PG (27.0-31.0); MEAN CORPUSCULAR HGB CONC 32.6 g/dL (33.0-36.5); MEAN CORPUSCULAR VOLUME 86.7 FL (78-98); MEAN PLATELET VOLUME 7.1 FL (7.4-10.4); MONOCYTES # (AUTO) 0.6 X10'3 (0-0.9); MONOCYTES % (AUTO) 8.9 % (2-12); PLATELET COUNT 202 X10'3 (140-440); RED BLOOD COUNT 3.71 X10'6 (4.70-6.10); RED CELL DISTRIBUTION WIDTH 15.8 % (11.5-14.5); WHITE BLOOD COUNT 6.7 X10'3 (4.5-11.0)
[2024-12-19 06:04] LABS: ALANINE AMINOTRANSFERASE 39 U/L (12-78); ALBUMIN 2.7 G/DL (3.4-5.0); ALBUMIN/GLOBULIN RATIO 0.8 (1.1-1.5); ALKALINE PHOSPHATASE 50 IU/L (46-116); ANION GAP 4 (8-16); ASPARTATE AMINO TRANSFERASE 23 U/L (10-37); BILIRUBIN,TOTAL 0.4 MG/DL (0.1-1.0); BLOOD UREA NITROGEN 15 MG/DL (7-18); BUN/CREATININE RATIO 17.4 (10.0-20.0); CALCIUM 8.6 MG/DL (8.5-10.1); CHLORIDE 109 MMOL/L (99-107); CREATININE 0.86 MG/DL (0.60-1.10); GLUCOSE 136 MG/DL (70-104); MAGNESIUM 1.7 MG/DL (1.5-2.4); POTASSIUM 3.7 MMOL/L (3.5-5.1); SODIUM 143 MMOL/L (135-145); TOTAL CARBON DIOXIDE 29.7 MMOL/L (24-32); eCRCL 75 ML/MIN; eGFR 90 ML/MIN
[2024-12-19] MEDS: losartan 50mg tablet PO SCH (08:18)
[2024-12-19] MEDS ORDERED: fentaNYL/PF 50MCG/1 ML 2ML syringe ONE (12:52)
[2024-12-19] MEDS ORDERED: LIDOcaine 2% Viscous 15ml cup ONE (12:53)
[2024-12-19] MEDS ORDERED: MIDAZolam 1 MG/ML 5ML VIAL ONE (12:53)
[2024-12-19 15:30] LABS: HEMATOCRIT 33.9 % (42.0-52.0); HEMOGLOBIN 10.9 g/dl (14.0-17.9); MEAN CORPUSCULAR HEMOGLOBIN 27.7 PG (27.0-31.0); MEAN CORPUSCULAR VOLUME 86.5 FL (78-98); MEAN PLATELET VOLUME 7.1 FL (7.4-10.4); PLATELET COUNT 214 X10'3 (140-440); RED BLOOD COUNT 3.92 X10'6 (4.70-6.10); RED CELL DISTRIBUTION WIDTH 15.8 % (11.5-14.5)
[2024-12-19] MEDS ORDERED: sodium ferric gluc complex inj 250 MG in normal saline 100ml IV soln 100 ML IV ONE (17:30)
[2024-12-19] MEDS: sodium ferric gluc complex 125 MG/NS IV soln 110 ML BAG IV ONE (18:07)
[2024-12-19] MEDS: pantoprazole 40 MG vial IV SCH (20:16)
[2024-12-19 21:18] LABS: HEMATOCRIT 33.6 % (42.0-52.0); HEMOGLOBIN 10.8 g/dl (14.0-17.9); MEAN CORPUSCULAR HEMOGLOBIN 27.8 PG (27.0-31.0); MEAN CORPUSCULAR HGB CONC 32.3 g/dL (33.0-36.5); MEAN CORPUSCULAR VOLUME 86.2 FL (78-98); MEAN PLATELET VOLUME 7.3 FL (7.4-10.4); PLATELET COUNT 230 X10'3 (140-440); RED CELL DISTRIBUTION WIDTH 15.7 % (11.5-14.5); WHITE BLOOD COUNT 7.7 X10'3 (4.5-11.0)
[2024-12-20 05:18] LABS: BASOPHILS % (AUTO) 0.3 % (0-1); EOSINOPHILS # (AUTO) 0.1 X10'3 (0-0.9); EOSINOPHILS % (AUTO) 0.9 % (0-6); HEMATOCRIT 34.3 % (42.0-52.0); HEMOGLOBIN 11.1 g/dl (14.0-17.9); LYMPHOCYTES # (AUTO) 1.8 X10'3 (1.1-4.8); LYMPHOCYTES % (AUTO) 25.3 % (21-51); MEAN CORPUSCULAR HEMOGLOBIN 27.8 PG (27.0-31.0); MEAN CORPUSCULAR HGB CONC 32.3 g/dL (33.0-36.5); MEAN CORPUSCULAR VOLUME 86.1 FL (78-98); MEAN PLATELET VOLUME 7.2 FL (7.4-10.4); MONOCYTES # (AUTO) 0.7 X10'3 (0-0.9); MONOCYTES % (AUTO) 9.5 % (2-12); NEUTROPHILS # (AUTO) 4.6 X10'3 (1.8-7.7); PLATELET COUNT 225 X10'3 (140-440); RED BLOOD COUNT 3.98 X10'6 (4.70-6.10); RED CELL DISTRIBUTION WIDTH 15.9 % (11.5-14.5); WHITE BLOOD COUNT 7.2 X10'3 (4.5-11.0)
[2024-12-20 05:34] LABS: ALANINE AMINOTRANSFERASE 44 U/L (12-78); ALBUMIN 2.8 G/DL (3.4-5.0); ALBUMIN/GLOBULIN RATIO 0.8 (1.1-1.5); ALKALINE PHOSPHATASE 59 IU/L (46-116); ANION GAP 8 (8-16); ASPARTATE AMINO TRANSFERASE 25 U/L (10-37); BILIRUBIN,TOTAL 0.4 MG/DL (0.1-1.0); BLOOD UREA NITROGEN 11 MG/DL (7-18); BUN/CREATININE RATIO 12.2 (10.0-20.0); CALCIUM 8.7 MG/DL (8.5-10.1); CHLORIDE 107 MMOL/L (99-107); GLUCOSE 124 MG/DL (70-104); MAGNESIUM 1.8 MG/DL (1.5-2.4); POTASSIUM 3.4 MMOL/L (3.5-5.1); SODIUM 142 MMOL/L (135-145); TOTAL CARBON DIOXIDE 27.3 MMOL/L (24-32); TOTAL PROTEIN 6.4 G/DL (6.4-8.2); eCRCL 72 ML/MIN; eGFR 85 ML/MIN
[2024-12-20 06:00] VITALS: BP 147/56; PULSE 63; TEMP 98.8; O2SAT 97
[2024-12-20] MEDS: potassium Cl 20 mEq SR tablet PO PRN (07:18)
[2024-12-20 08:00] VITALS: RESP 18; O2SAT 99
[2024-12-20 10:00] VITALS: BP 141/55; PULSE 83; RESP 14; TEMP 97.9; O2SAT 95
[2024-12-20] MEDS ORDERED: IRON150C5 PO (12:12)
== END 2024-12-20 14:46 | disposition home or self-care (01) | DRG 241 ==
LOC: ER 07:14 → ED HOLD 12:51 → SUR 3N 13:55
PROVIDERS: ADMIT Internal Medicine; ATTEND Internal Medicine
PROC: 0DB68ZX Excision of Stomach, Via Natural or Artificial Opening Endoscopic, Diagnostic (ICD-10-PCS; principal; 2024-12-19)
DX: K29.71 Gastritis, unspecified, with bleeding (principal); K22.2 Esophageal obstruction; I10 Essential (primary) hypertension; E78.00 Pure hypercholesterolemia, unspecified; D50.9 Iron deficiency anemia, unspecified; E11.9 Type 2 diabetes mellitus without complications; K64.4 Residual hemorrhoidal skin tags; K21.9 Gastro-esophageal reflux disease without esophagitis; Z87.11 Personal history of peptic ulcer disease; Z79.4 Long term (current) use of insulin; Z79.84 Long term (current) use of oral hypoglycemic drugs; Z79.899 Other long term (current) drug therapy
CPT/HCPCS: 36415; 43239; 80048; 80053; 81001; 82272; 82948; 83036; 83735; 83880; 85025; 85027; 85610; 85730; 87081; 96361; 96374; 99152; 99285; A4620; G0378; J1815; J2250; J2470; J2916; J3010; J7030; J7999

== ENCOUNTER 2025-08-31 10:54 | Inpatient (IN) | payer MEDICARE, MEDICAID ==
[~2025-08-31] VITALS: Ht 165.1 cm; Wt 77.0 kg
[~2025-08-31 10:54] MED LIST changes: +AMLO10TA13 PO; -CEPH250C PO; +DILT-35 PO; -ENOX60SY7 SQ; -FERR324T4 PO; -HYDR25TA5 PO; +IRON150C5 PO; -LOSA100T58 PO; -MUPI22OI30 TP; -PHEN1SUP96 PR; +SEMA0.258; -SEMA3TAB4 PO
--- NOTE | 2025-08-31 11:19 | ELECTROCARDIOGRAPH REPORT ---
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 TAMIA Bhatia Measurements Intervals [place] Rate: 117 P: 0 LA: 0 QRS: 1 QRSD: 92 T: 64 QT: 337 QTc: 471 Interpretive Statements Atrial fibrillation Ventricular premature complex ST elevation, consider anterior injury Baseline wander in lead(s) V4 Electronically Signed On 09-01-2025 19:21:[address] TAMIA Bhatia Please click the below link to view image of tracing.
--- NOTE | 2025-08-31 11:27 | RADIOLOGY REPORT ---
CHEST RADIOGRAPH Indication: new altered status and recent blood transfusion Technique: Single frontal view of the chest was obtained COMPARISON: DI CHEST,SINGLE VIEW on DOS: 08/28/25, CHEST,SINGLE VIEW on DOS: 01/30/23, CHEST,SINGLE VIEW on DOS: 01/25/23, CHEST,SINGLE VIEW on DOS: 05/25/19 FINDINGS: Lines and Tubes: None Lungs: Low lung volumes. Mild pulmonary vascular congestion. Pleura: No effusion.No pneumothorax. Cardiomediastinal contours: Cardiomegaly. Bones: Unremarkable IMPRESSION: Cardiomegaly and mild pulmonary vascular congestion.
[2025-08-31 11:45] LABS: MEAN PLATELET VOLUME 8.0 FL (7.4-10.4)
[2025-08-31 11:58] LABS: LEUKOCYTE ESTERASE ,URINE NEGATIVE (Neg); NITRITES, URINE NEGATIVE (Neg); OCCULT BLOOD,URINE TRACE-INTACT (Neg)
[2025-08-31 12:05] LABS: UA COLLECTION TYPE NON-SPECIFIED
[2025-08-31 12:07] LABS: MUCUS STRANDS NONE SEEN /LPF (Neg); SQUAMOUS EPITHELIAL CELL,UR FEW /LPF (FEW)
--- NOTE | 2025-08-31 12:14 | Physician Documentation ---
History of Present Illness General Chief Complaint: Weakness Stated Complaint: WEAKNESS Time Seen by MD: 12:06 Primary Medical Doctor: ARGENTA LASHA WANG Mode of Arrival: EMS, Stretcher History of Present Illness Initial Comments A 65-year-old male with a history of AFib not on anticoagulation and recently discharged two days ago after being treated for GI bleed with endoscopy in 2 units presented to the ER with his daughter in view of acute onset of confusion and feeling weird at the time of having breakfast this morning. As per the patient's daughter states that the patient was having breakfast when he started to feel weird, was not able to swallow and had some amount of sensory aphasia. Patient was able to talk but did not make any sense per the daughter. Patient denies blurriness of vision, weakness in his upper or lower extremities or not being able to walk. Patient is not oriented to time and person. Patient does not speak Italian( Mien speaking). Patient endorses orthopnea, denies lower extremity swelling, shortness of breaths on exertion or at rest, chest pain, palpitations, pedal edema. Patient denies burning micturition, lower abdominal pain, fever with chills rigors. Medication Reconciliation Allergies: Coded Allergies: No Known Allergies (Unverified , 08/31/25) Scheduled Amlodipine Besylate (Amlodipine Besylate), 1 TAB PO DAILY, (Reported) Atorvastatin Calcium (Atorvastatin Calcium), 1 TAB PO HS, (Reported) Diltiazem HCl (Diltiazem 24Hr ER), 1 CAP PO QAM, (Reported) Insulin Glargine,Hum.rec.anlog (Basaglar Kwikpen U-100), 25 UNITS SQ HS, (Reported) Iron Polysaccharides Complex (Ferrex 150), 150 MG PO DAILY Metformin HCl (Metformin HCl), 1 TAB PO BIDBD, (Reported) Pantoprazole Sodium (PROTONIX tablet), 1 TAB PO BID, (Reported) Miscellaneous Medications Semaglutide (Ozempic), (Reported) Discontinued Medications Cephalexin (Cephalexin), 250 MG PO Q8H Discontinued Reason: patient no longer taking Enoxaparin Sodium (Lovenox), 40 MG SQ DAILY Discontinued Reason: patient no longer taking Hydrochlorothiazide (Hydrochlorothiazide), 1 TAB PO DAILY Discontinued Reason: patient no longer taking Losartan Potassium (Losartan Potassium), 1 TAB PO DAILY, (Reported) Discontinued Reason: patient no longer taking Semaglutide (Rybelsus), 1 TAB PO DAILY, (Reported) Discontinued Reason: patient no longer taking Past Medical History Past Medical History: High Cholesterol, Hypertension, GERD, GI Bleed, Hemorrhoids, Peptic Ulcer Disease, Anemia, Diabetes Other Past Medical History: GI bleed TIA AFib Past Surgical History: no surgical history Smoking: Non-Smoker Alcohol Use: None Drug Use: none Lives with: Family Lives In: Home Physical Exam Physical Exam Vital Signs: Temperature: 97.7, Source: Oral, Heart Rate: 89, Respiratory Rate: 16, BP: 151/83, Pulse Oximetry: 93, Weight: 77.000 Oxygen Flow Rate: 0 Physical Exam General: Alert, awake, not oriented to time and person HEENT: PERRLA, no icterus, pallor, lymphadenopathy, carotid bruit Respiratory system: Bilateral vesicular breath sounds heard, no adventitious breath sounds CVS: S1-S2 heard, grade 2/6 HSM murmur in the mitral and tricuspid area GI: Soft, nontender, no organomegaly, no guarding/rigidity, bowel sounds present Neuro: No focal neurological deficits present Mental status exam: Not oriented to time and person, loss of nasolabial fold on the right side - Cranial nerve test: Cranial nerves 2-12 intact - Motor system: Nutrition, Tone 3+, Power 5/5, no involuntary movements - Sensory system: Intact - Reflex testing: Biceps, triceps and knee reflexes 2+ - Cerebellar: Normal Extremities: No edema cyanosis clubbing/deformities Skin: Warm and dry Progress Results/Orders Results/Orders Orders - TRINO PEREZ RES [place] [facility] Consult (08/31/25 12:08) Completed Orders - TRINO PEREZ RES Iohexol 350mg/Ml 100ml (Omnipaque 350mg/ (08/31/25 12:43) Vital Signs 08/31/25 08/31/25 08/31/25 08/31/25 10:58 11:07 11:10 12:07 Temp 97.7 Pulse 108 102 89 Resp 16 16 16 16 B/P (MAP) 170/92 170/92 (118) 151/83 (105) Pulse Ox 98 100 93 O2 Flow Rate 0 0 0 Laboratory Tests Test 08/31/25 11:29 08/31/25 11:32 12/5/25 11:36 08/31/25 12:19 Urine Specimen Description Non-specified Urine Color Straw Urine Clarity Clear Urine pH 6.5 Urine Specific [place] 1.015 Urine Protein 100 H Urine Glucose (UA) 250 H Urine Ketones Negative Urine Occult Blood Trace-intact Urine Nitrite Negative Urine Bilirubin Negative Urine Urobilinogen 0.2 Urine Leukocyte Esterase Negative Urine RBC 3-10 Urine WBC 0-4 Urine Squamous Epithelial Cells Few Urine Bacteria Few Urine Mucus None seen Urine Culture Indicated Not ind Volume Urine Centrifuged 10 ml Urine Comment Sodium Level 139 141 Potassium Level 4.0 4.0 Chloride Level 108 H 108 H Carbon Dioxide Level 22.8 L 24.9 Anion Gap 8 8 Blood Urea Nitrogen 13 12 Creatinine 0.90 0.84 Estimated GFR/1.73 m2 85 > 90 BUN/Creatinine Ratio 14.4 14.3 Glucose Level 224 H 196 H Calcium Level 9.1 8.9 Albumin 3.6 3.4 Chemistry Comments White Blood Count 9.3 Red Blood Count 4.73 Hemoglobin 9.4 L Hematocrit 30.4 L Mean Corpuscular Volume 64.2 L Mean Corpuscular Hemoglobin 19.9 L Mean Corpuscular Hemoglobin Concent 31.0 L Red Cell Distribution Width 26.2 H Platelet Count 395 Mean Platelet Volume 8.0 Neutrophils (%) (Auto) 77.5 H Lymphocytes (%) (Auto) 14.5 L Monocytes (%) (Auto) 7.2 Eosinophils (%) (Auto) 0.5 Basophils (%) (Auto) 0.3 Neutrophils # (Auto) 7.2 Lymphocytes # (Auto) 1.3 Monocytes # (Auto) 0.7 Eosinophils # (Auto) 0.0 Basophils # (Auto) 0.0 CBC Comment Platelet Estimate Normal Red Blood Cell Morphology Perf Hypochromasia 2+ Basophilic Stippling Anisocytosis 3+ Microcytosis 2+ Spherocytes Few Target Cells Few Stomatocytes Few Elliptocytes 1+ Lactic Acid Level 1.5 Prothrombin Time 10.4 INR International Normalized Ratio 1.0 Coagulation Comments Magnesium Level 1.9 Total Bilirubin 0.4 Aspartate Amino Transf (AST/SGOT) 16 Alanine Aminotransferase (ALT/SGPT) 28 Alkaline Phosphatase 115 Ammonia 34 H Pro-B-Type Natriuretic Peptide 909 H Total Protein 7.5 Globulin 4.1 Albumin/Globulin Ratio 0.8 L Medical Decision Making Findings A 65-year-old male with past medical history of AFib not on anticoagulation presented with generalized weakness, new onset of confusion and sensitive aphasia. Patient is being evaluated for TIA and stroke. Differential Diagnosis TIA, acute ischemic CVA, generalized electrolyte abnormalities Departure Referrals: NO PRIMARY CARE PROVIDER (PCP) Signature Scribe Signature: None Attestation: Document written by resident and attested by the ED physician TRINO PEERZ, RES Aug 31, 2025 12:14
[2025-08-31 12:24] LABS: CREATININE 0.90 MG/DL (0.60-1.10); TOTAL CARBON DIOXIDE 22.8 MMOL/L (24-32); eCRCL 71 ML/MIN; eGFR 85 ML/MIN
[2025-08-31 12:35] LABS: RED CELL DISTRIBUTION WIDTH 26.2 % (11.5-14.5)
[2025-08-31 12:37] LABS: PLATELET ESTIMATE NORMAL
[2025-08-31 12:38] LABS: ELLIPTOCYTES 1+
[2025-08-31 12:45] LABS: INR 1.0 INR
[2025-08-31 12:50] LABS: CREATININE 0.84 MG/DL (0.60-1.10); TOTAL CARBON DIOXIDE 24.9 MMOL/L (24-32); eCRCL 76 ML/MIN; eGFR > 90 ML/MIN
[2025-08-31 12:56] LABS: PRO BRAIN NATRIURETIC PEPTIDE 909 PG/ML (0-125)
[2025-08-31 13:02] LABS: ETHANOL < 10 MG/DL (<10)
[2025-08-31 13:28] LABS: URINE AMPHETAMINE SCREEN NEGATIVE (Neg); URINE BARBITUATE SCREEN NEGATIVE (Neg); URINE BENZODIAZEPINES SCREEN NEGATIVE (Neg); URINE CANNABINOID SCREEN NEGATIVE (Neg); URINE COCAINE SCREEN NEGATIVE (Neg); URINE METHADONE SCREEN NEGATIVE (Neg); URINE OPIATE SCREEN NEGATIVE (Neg); URINE PHENCYCLIDINE SCREEN NEGATIVE (Neg)
[2025-08-31] MEDS ORDERED: ondansetron/PF 4mg/2ml inj IV PRN (13:30)
[2025-08-31] MEDS ORDERED: magnesium sulf-water 2g/50mL 50 ML IV PRN (13:30)
[2025-08-31] MEDS ORDERED: magnesium Cl slow-release 64mg tablet PO PRN (13:30)
[2025-08-31] MEDS ORDERED: potassium Cl 40MEQ/1/2NS 520ml 520 ML IV PRN (13:30)
[2025-08-31] MEDS ORDERED: ondansetron 4mg rapidly disintigrating tab PO PRN (13:30)
[2025-08-31] MEDS ORDERED: mag hydrox/Alum hydrox/simeth 30ml oral suspension PO PRN (13:30)
[2025-08-31] MEDS ORDERED: potassium Cl 20 mEq SR tablet PO PRN ×2 (13:30)
[2025-08-31] MEDS ORDERED: magnesium hydroxide 30ml (MOM) UD suspension PO PRN (13:30)
[2025-08-31] MEDS ORDERED: morphine 4 MG/ML inj SYRINge IV PRN ×2 (13:30)
[2025-08-31] MEDS ORDERED: magnesium sulf-water 4G/100mL 100 ML IV PRN (13:30)
--- NOTE | 2025-08-31 13:33 | CONSULTATION REPORT ---
History of Present Illness Providers to CC ~ Refering MD: RUMA WANG Allergies: Coded Allergies: No Known Allergies (Unverified , 08/31/25) Home Medications Home Medications Active Ferrex 150 (Iron Polysaccharides Complex) 150 Mg Iron Capsule 150 Mg PO DAILY 30 Days Reported Ozempic (Semaglutide) 0.25 Mg/0.368 Ml Pen.injctr Amlodipine Besylate 10 Mg Tablet 1 Tab PO DAILY Diltiazem 24Hr ER (Diltiazem HCl) 120 Mg Cap.er.24h 1 Cap PO QAM PROTONIX tablet (Pantoprazole Sodium) 40 Mg Tablet.dr 1 Tab PO BID Metformin HCl 1,000 Mg Tablet 1 Tab PO BIDBD Basaglar Kwikpen U-100 (Insulin Glargine,Hum.rec.anlog) 100 Unit/1 Ml Insuln.pen 25 Units SQ HS Atorvastatin Calcium 20 Mg Tablet 1 Tab PO HS Past Family History Family History: Patient reports no known family medical history. Physical Exam Last Vital Signs Recorded: Temperature: 97.7, Source: Oral, Heart Rate: 87, Respiratory Rate: 16, BP: 170/85, Pulse Oximetry: 100, Weight: 77.000 Results Diagram Lab Result Diagram: 08/31/25 1136 08/31/25 1219 Assessment/Plan Additional Plan [place] [facility] Note # Demographics Consult Type: Acute Stroke Level 2 (4.5-24 hrs) Patient Location: Emergency Room First Name: LUCINDA Last Name: VERONIQUE Date of : 1960 Age: 65 Gender: Male Facility: [facility] Time of Initial Page (): 08/31/2025 13:10 First Contact with Site ( Time): 08/31/2025 13:10 # HPI Chief Complaint: - speech changes History: 65 y/o M recently discharged for GI bleed requiring transfusion. Does have hx of a-fib not on anticoagulation. Today while having breakfast he felt off. Then noted to have aphasia. Speech now is improved. # Scores Time of exam and NIHSS (): 08/31/2025 13:16 Level of Consciousness 1a: [0] = Alert; keenly responsive LOC Questions 1b: [0] = Answers both questions correctly LOC Commands 1c: [0] = Performs both tasks correctly Best Gaze 2: [0] = Normal Visual 3: [0] = No visual loss Facial Palsy 4: [0] = Normal symmetrical movements Motor Arm Left 5a: [0] = No drift Motor Arm Right 5b: [0] = No drift Motor Leg Left 6a: [0] = No drift Motor Leg Right 6b: [0] = No drift Limb Ataxia 7: [0] = Absent Sensory 8: [0] = Normal Best Language 9: [0] = No aphasia Dysarthria 10: [0] = Normal Extinction and Inattention 11: [0] = No abnormality NIHSS Total: 0 # Assessment Impression: - Transient Ischemic Attack Other stroke mimics also possible # Plan Thrombolytic/Intervention: NOT IV Thrombolysis or IA Intervention candidate Thrombolytic Exclusion (< 3 hour window): - non-disabling deficit Intraarterial Exclusion: - clinical exam not consistent with presence of large vessel occlusion (LVO), can reconsider if LVO found on vascular imaging Other: - If patient has any neurological deterioration please call me back immediately - I have discussed my recommendations with the referring provider Additional Recommendations: Consider TIA/stroke evaluation if no other clear etiology for symptoms. # Logistics Attestation of consult completion: The patient is located at: [facility]. Facility staff participated in the visit. I performed this telemedicine visit from my offsite office utilizing interactive 2 way audio and visual telecommunication technology at the request of the onsite emergency room provider. Total time spent in telemedicine encounter: I spent 15 minutes reviewing clinical data and/or imaging, obtaining history, examining the patient, communicating with the onsite care team, and in preparation of this report. # Demographics First Name: LUCINDA Last Name: VERONIQUE Facility: [facility] Electronically signed at 08/31/2025 13:31 ([place] Time) by MD RODNEY Lr ADAM K MD Aug 31, 2025 13:33
--- NOTE | 2025-08-31 14:14 | RADIOLOGY REPORT ---
EXAM: CT CT HEAD INDICATION: TIA/CVA TECHNIQUE: CT of the head without intravenous contrast. Radiation Dose : 1. Head: CT Dose: CTDI volume is 56 mGy. Dose-length product is 1086.38 mGy*cm The dose indicators for CT are the volume Computed Tomography (CT) Dose Index (CTDIvol) and the Dose Length Product (DLP), and are measured in units of mGy and mGy-cm, respectively. These indicators are not patient dose, but values generated from the CT scanner acquisition factors. The report includes radiation exposure data for exposures received during this examination. COMPARISON: None FINDINGS: There is no evidence of acute intracranial hemorrhage, extra-axial collection, mass effect, midline shift, herniation or hydrocephalus. The ventricles, sulci and cisterns are age appropriate. The almendarez-white differentiation is intact. Patchy periventricular and subcortical white matter hypoattenuation is nonspecific but may be related to small vessel ischemic disease. Mucous retention cyst in the right maxillary sinus. Remaining paranasal sinuses and mastoid air cells are clear. The surrounding soft tissues and osseous structures are unremarkable. IMPRESSION: No acute intracranial abnormality. Radiation optimization: All CT scans at this facility use at least one of these dose optimization techniques: automated exposure control mA and/or kV adjustment per patient size (includes targeted exams where dose is matched to clinical indication) or iterative reconstruction.
--- NOTE | 2025-08-31 14:36 | RADIOLOGY REPORT ---
CLINICAL HISTORY: TIA/CVA TECHNIQUE: CT angiogram of the head and neck was performed without and with intravenous contrast. 3D MIP reconstructed images were created and archived on the PACS system. This exam was performed according to our departmental dose optimization program. Up-to-date CT equipment and radiation dose reduction techniques are utilized as appropriate. CTDI 13 DLP 976 COMPARISON: CT CT HEAD on DOS: 08/31/25 FINDINGS: CTA NECK: The common carotid, internal carotid, and vertebral arteries are patent with no evidence for high grade narrowing, occlusion, and dissection. There are moderate left and mild right atherosclerotic changes of the carotid bulbs. There is no significant narrowing at the carotid bulbs per NASCET criteria. There is a 2.8 cm left thyroid nodule. CTA HEAD: The anterior and posterior intracranial circulations are intact with no evidence for high grade narrowing, occlusion, or aneurysm. There is origin of the left posterior cerebral artery. There is a moderate stenosis of the V4 segment of the right vertebral artery. There are mild and moderate stenoses of the basilar artery. IMPRESSION: No acute CTA abnormality of the major head and neck arterial vasculature. 2.8 cm left thyroid nodule.
--- NOTE | 2025-08-31 16:50 | HISTORY AND PHYSICAL-Residence ---
History & Physical Providers to CC Resident Creating Document: SILVERIO HILTON, RES ~ History of Present Illness Primary Medical Doctor: [facility] DR WANG Reason for Admit\Complaint: TIA History of Present Illness A 65-year-old male with a history of atrial fibrillation (not on anticoagulation) and recent hospitalization for gastrointestinal bleeding treated with endoscopy and transfusion of 2 units presents to the ER accompanied by his daughter due to acute onset confusion and right-hand sensory loss. According to the daughter, while having breakfast this morning, the patient developed difficulty swallowing, speech changes, right-hand numbness, and imbalance; the episode lasted 23 hours and then resolved. He denies vision changes or lower extremity weakness. The patient does not speak Andorran; his Mien-speaking daughter reports that his baseline is normal. Additionally, the patient endorses shortness of breath with paroxysmal nocturnal dyspnea and orthopnea but denies palpitations or pedal edema. Allergies: Coded Allergies: No Known Allergies (Unverified , 08/31/25) Home Medications Home Medications Active Ferrex 150 (Iron Polysaccharides Complex) 150 Mg Iron Capsule 150 Mg PO DAILY 30 Days Reported Ozempic (Semaglutide) 0.25 Mg/0.368 Ml Pen.injctr Amlodipine Besylate 10 Mg Tablet 1 Tab PO DAILY Diltiazem 24Hr ER (Diltiazem HCl) 120 Mg Cap.er.24h 1 Cap PO QAM PROTONIX tablet (Pantoprazole Sodium) 40 Mg Tablet.dr 1 Tab PO BID Metformin HCl 1,000 Mg Tablet 1 Tab PO BIDBD Basaglar Kwikpen U-100 (Insulin Glargine,Hum.rec.anlog) 100 Unit/1 Ml Insuln.pen 25 Units SQ HS Atorvastatin Calcium 20 Mg Tablet 1 Tab PO HS Past Medical History Past Medical History Atrial fibrillation Hypertension Diabetes mellitus Hyperlipidemia Past Surgical History Surgical History Comment Abdominal surgery Family History Family History: Patient reports no known family medical history. Past Social History Social History Comment Primary care physician- Pharmacy Resident- Quit smoking 5 years ago Drinks alcohol occasionally Able to ambulate without any assistance Smoking: Non-Smoker Alcohol Use: None Drug Use: None Lives with: Family Lives In: Home ROS ROS Review of system is negative except mentioned in the HPI Exam Vitals: Vital Signs Date Time Temp Pulse Resp B/P (MAP) Pulse Ox O2 Delivery O2 Flow Rate FiO2 08/31/25 15:20 95 08/31/25 14:19 16 164/82 (109) 99 0 08/31/25 10:58 97.7 General: Awake , alert, and oriented x4 HEENT: Atraumatic, normocephalic, EOMI, anicteric sclera ; pale conjunctiva Neck: Trachea midline. Supple, full range of motion, no JVD Cardiac: Tachycardic irregular with 3/6 holosystolic murmur heard at left lower sternal border Respiratory: Mild bilateral bibasilar crackles are heard on auscultation, Chest wall is symmetric and without deformity. Gastrointestinal: Abdomen symmetric, non-distended, soft, non-tender, normal bowel sounds x4 quadrant, normoactive, no hepatosplenomegaly Neurological: Mental status exam: alert and consciousness, orientation, memory, speech - Cranial nerve test: Cranial nerves 2-12 intact - Motor system: Normal Nutrition, normal tone, Power 5/5, no involuntary movements - Sensory system: Intact - Reflex testing: Biceps, triceps and knee reflexes 2+ - Cerebellar: Normal Skin: Warm and dry Extremities : No Edema, peripheral pulses felt, No deformities Psychiatric:Appropriate mood and affect,No hallucinations or suicidal ideation Diagnostic Data Last Recorded Lab Results: 08/31/25 1136 08/31/25 1219 Diagnostic Data: Laboratory Tests Test 08/31/25 12:19 Prothrombin Time 10.4 SECONDS (9.0-12.0) INR International Normalized Ratio 1.0 INR Coagulation Comments Advance Care Planning Advanced Care plannin - 30 Minutes Additional Plan 65 years old male with past medical history AFib, hypertension, peptic ulcer disease he is currently evaluated for TIA deana 2/2 Embolic stroke Deana due to no anticoagulation for underlying Afib Head CT-No acute intracranial abnormality. CTA head and neck-No acute CTA abnormality of the major head and neck arterial vasculature.2.8 cm left thyroid nodule. Tele neurology was consulted Started Heparin drip Per protocol, monitor H&H q6h if Hb is low Hold the heparin drip Follow up with the echocardiogram, previous echocardiogram shows normal LVEF but Small, circular Echogenic structure nonmobile, visualized on the anterior TV leaflet Follow up with MRI head Maintain permissive hypertension, telemetry monitoring Neuro checks, fall precautions, aspiration precaution Microcytic hypochromic anemia-iron deficiency anemia Patient denies any melena or hematochezia Patient received 2 units of PRBC in the last admission Upper GI endoscopy r/o Upper GI bleed, So source is Unknown deana peterson H&H-9.4/30.4, mean corpuscular volume-64.2, RDW-26 point, Follow up with iron studies Started Pronix 40mg IV BID Transfuse PRBC if HGB is less than 7 Follow up with H&H q6h Atrial fibrillation Yaya Vasc-4 Patient has a history of AFib for which she takes diltiazem 120 mg p.o. and he is not on any blood thinners EKG-shows atrial fibrillation heart rate of 83 beats per minute Started Heparin Drip Hold heparin if Hb drops by monitoring H&H q6H Congestive heart failure with preserved ejection fraction Pro BNP-909, chest x-ray-shows, Chest x-ray-shows Cardiomegaly and mild pulmonary vascular congestion. Echo on 08/28/2025-shows LVEF is about 60%,Moderate concentric hypertrophy. RV is moderately dilated with normal systolic function.Small, circular Echogenic structure nonmobile, visualized on the anterior TV leaflet, best visualized apically and subcostally. F/p with echo and started Po lasix 20mg po daily Insulin-dependent type 2 diabetes mellitus With glucose-196 Started hyperglycemia/hypoglycemia protocol Hypertension Held home med in view of maintaining permissive hypertension Code Status: Full DVT prophylaxis: heparin drip Analgesia/Sedation: Morphine Nutrition: Swallow evaluation- PT: Order Prognosis: Guarded Disposition: He will be monitored in ortho, with telemetry-follow up with hemoglobin Silverio Hilton PGY1-Internal Medicine Resident Date of Service: Aug 31, 2025 Billing Provider: KAILEY HUMPHREY MD Common Visit Codes: 11052-[id number] INP/OBS CARE (HIGH) Secondary Visit Codes: 17290-[id number] CARE PLAN 30 MINUTES SILVERIO HILTON, RES Aug 31, 2025 16:50 KAILEY HUMPHREY MD Sep 02, 2025 08:07
[2025-08-31 17:00] VITALS: RESP 16
[2025-08-31 18:00] VITALS: BP 145/76; PULSE 83; RESP 16; TEMP 97.8; O2SAT 97
[2025-08-31] MEDS ORDERED: glucagon, human recombinant 1mg kit SUBCUT PRN (18:40)
[2025-08-31] MEDS ORDERED: DEXTROSE 15 GM of carb/4 tabs (each vial/BOTTLE has 4 tablets) PO PRN ×2 (18:40)
[2025-08-31] MEDS ORDERED: dextrose 50%-water 50ml dispensing syringe IV PRN ×2 (18:40)
[2025-08-31] MEDS: K and/or MAG REPLACEMENT MC SCH (20:00)
[2025-08-31] MEDS ORDERED: aspirin 81mg, enteric-coated 1 TAB TABLET.DR PO SCH (20:00)
[2025-08-31 20:18] LABS: MEAN PLATELET VOLUME 8.2 FL (7.4-10.4); RED CELL DISTRIBUTION WIDTH 26.3 % (11.5-14.5)
[2025-08-31] MEDS ORDERED: HEPARIN DRIP-CARDIAC**PHARMACIST-TO-DOSE IV SCH (20:40)
[2025-08-31] MEDS ORDERED: heparin 10,000 units/1 ML INJ IV ONE (20:50)
[2025-08-31] MEDS ORDERED: heparin 10,000 units/1 ML INJ IV PRN (20:50)
[2025-08-31] MEDS ORDERED: heparin 25,000 UNIT/250ml bag 250 ML IV PRN (20:50)
[2025-08-31] MEDS: docusate sod 100mg capsule PO SCH (21:03)
[2025-08-31] MEDS: INSULIN LISPRO 100 UNIT/ML INSULN.PEN MULTI-DOSE SQ SCH (21:04)
[2025-08-31 21:12] LABS: % IRON SATURATION 4 % (11-46)
[2025-08-31 22:00] VITALS: BP 124/44; PULSE 105; RESP 15; TEMP 98; O2SAT 98
[2025-09-01] VITALS (8 sets, daily range): BP systolic 109–164; BP diastolic 48–76; PULSE 52–96; RESP 14–16; TEMP 97.5–98.4; O2SAT 98–100
[2025-09-01 01:50] LABS: CREATININE 0.90 MG/DL (0.60-1.10); TOTAL CARBON DIOXIDE 25.9 MMOL/L (24-32); eCRCL 71 ML/MIN; eGFR 85 ML/MIN
[2025-09-01 01:55] LABS: MEAN PLATELET VOLUME 8.2 FL (7.4-10.4); RED CELL DISTRIBUTION WIDTH 26.3 % (11.5-14.5)
[2025-09-01 02:18] LABS: ELLIPTOCYTES 2+; PLATELET ESTIMATE NORMAL
[2025-09-01 07:51] LABS: MEAN PLATELET VOLUME 8.3 FL (7.4-10.4); RED CELL DISTRIBUTION WIDTH 26.6 % (11.5-14.5)
[2025-09-01] MEDS: MESSAGE TO NURSING IV ONE ×2 (08:10→15:32)
[2025-09-01] MEDS: heparin 25,000 UNIT/250ml bag 250 ML IV PRN (08:25)
[2025-09-01 09:04] LABS: APTT 27 SECONDS (22-32); INR 1.1 INR
[2025-09-01] MEDS: INSULIN LISPRO 100 UNIT/ML INSULN.PEN MULTI-DOSE SQ SCH (12:51)
[2025-09-01 13:13] LABS: OCCULT BLOOD STOOL NEGATIVE (Neg)
[2025-09-01 14:40] LABS: MEAN PLATELET VOLUME 8.2 FL (7.4-10.4); RED CELL DISTRIBUTION WIDTH 26.8 % (11.5-14.5)
--- NOTE | 2025-09-01 15:18 | PROGRESS NOTE- Residence ---
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 Patient was admitted during the month of November with acute blood loss anemia and again on August 28 with severe anemia. And in between he did not hospitalized No overnight symptoms are reported, patient is currently on heparin drip, denies any melena or hematochezia or hematemesis Objective Vital Signs Date Time Temp Pulse Resp B/P (MAP) Pulse Ox O2 Delivery O2 Flow Rate FiO2 09/01/25 10:00 97.5 71 16 138/67 (90) 100 Room Air 08/31/25 14:19 0 Result Diagram: 09/01/25 1357 09/01/25 0104 Awake , alert, and oriented x4 HEENT: Atraumatic, normocephalic, EOMI, anicteric sclera ; pale conjunctiva Neck: Trachea midline. Supple, full range of motion, no JVD Cardiac: Tachycardic irregular with 3/6 holosystolic murmur heard at left lower sternal border Respiratory: Mild bilateral bibasilar crackles are heard on auscultation, Chest wall is symmetric and without deformity. Gastrointestinal: Abdomen symmetric, non-distended, soft, non-tender, normal bowel sounds x4 quadrant, normoactive, no hepatosplenomegaly Neurological: Mental status exam: alert and consciousness, orientation, memory, speech - Cranial nerve test: Cranial nerves 2-12 intact - Motor system: Normal Nutrition, normal tone, Power 5/5, no involuntary movements - Sensory system: Intact - Reflex testing: Biceps, triceps and knee reflexes 2+ - Cerebellar: Normal Skin: Warm and dry Extremities : No Edema, peripheral pulses felt, No deformities Psychiatric:Appropriate mood and affect,No hallucinations or suicidal ideation Coagulation Studies Laboratory Tests Test 09/01/25 08:35 09/01/25 13:57 Prothrombin Time 11.1 SECONDS (9.0-12.0) INR International Normalized Ratio 1.1 INR Activated Partial Thromboplast Time 27 SECONDS (22-32) APTT (Heparin Protocol) 30 SECONDS (45-60) L Coagulation Comments Advance Care Planning Advanced Care plannin - 30 Minutes Assessment Assessment 65 years old male he is currently evaluated for transient ischemic attack Plan Plan TIA deana 2/2 Embolic stroke Deana due to no anticoagulation for underlying Afib Head CT-No acute intracranial abnormality. CTA head and neck-No acute CTA abnormality of the major head and neck arterial vasculature.2.8 cm left thyroid nodule. Continue Heparin drip Per protocol, monitor H&H q6h if Hb is low Hold the heparin drip previous echocardiogram shows normal LVEF but Small, circular Echogenic structure nonmobile, visualized on the anterior TV leaflet Pending echo, pending MRI Maintain permissive hypertension, telemetry monitoring Neuro checks, fall precautions, aspiration precaution Microcytic hypochromic anemia-iron deficiency anemia Patient denies any melena or hematochezia Patient received 2 units of PRBC in the last admission Upper GI endoscopy r/o Upper GI bleed, So source is Unknown deana hemmorids recommended outpatient colonoscopy H&H-9.0 and 8.7/30.4 and 29.2 Low iron, low ferritin-started IV iron,Started Pronix 40mg IV BID Transfuse PRBC if HGB is less than 7 Follow up with H&H q6h Atrial fibrillation Yaya Vasc-4 Patient has a history of AFib for which she takes diltiazem 120 mg p.o. and he is not on any blood thinners EKG-shows atrial fibrillation heart rate of 83 beats per minute at the time of admission Today telemetry shows normal sinus rhythm Started Heparin Drip Hold heparin if Hb drops by monitoring H&H q6H Congestive heart failure with preserved ejection fraction Pro BNP-909, chest x-ray-shows, Chest x-ray-shows Cardiomegaly and mild pulmonary vascular congestion. Echo on 08/28/2025-shows LVEF is about 60%,Moderate concentric hypertrophy. RV is moderately dilated with normal systolic function.Small, circular Echogenic structure nonmobile, visualized on the anterior TV leaflet, best visualized apically and subcostally. F/p with echo continue Po lasix 20mg po daily Insulin-dependent type 2 diabetes mellitus With glucose-196 Started hyperglycemia/hypoglycemia protocol and Lantus 7 units Hypertension Held home med in view of maintaining permissive hypertension Code Status: Full DVT prophylaxis: heparin drip Analgesia/Sedation: Morphine Nutrition: Swallow evaluation- PT: Order Prognosis: Guarded Disposition: He will be monitored in ortho, with telemetry-follow up with hemoglobin Silverio Dumont PGY1-Internal Medicine Resident Date of Service: Sep 01, 2025 Billing Provider: KAILEY HUMPHREY MD Common Visit Codes: [id number] INP/OBS CARE(HIGH) SILVERIO DUMONT, NERY Sep 01, 2025 15:18 KAILEY HUMPHREY MD Sep 02, 2025 08:10
[2025-09-01] MEDS: sodium ferric gluc complex inj 125 MG in normal saline 100ml IV soln 100 ML IV ONE (18:15)
--- NOTE | 2025-09-01 19:38 | CARDIOLOGY REPORT ---
APPROVED REPORT EXAM: Limited 2D, Doppler, and color-flow Echocardiogram with saline. Patient Location: 402 Blood Pressure: 164/82 mmHg Heart Rate: 96 -121 bpm Rhythm: Atrial Fibrillation Indications CVA/TIA ProBNP: 908 Shortness of Breath Atrial Fibrillation Hypertension Diabetes SPEECH LANGUAGE PATHOLOGIST PRN: Jagdeep Amanda MD Previous ECHO: 08/28/25, [facility], EF: 60; mod RVE; sev LAE; m CHRISTOPHER; mod AI 2D Dimensions IVSd 1.4 (0.7-1.1cm) LVDd 4.0 cm PWd 1.7 (0.7-1.1cm) IVSs 1.6 (0.8-1.2cm) LVDs 2.6 (2.5-4.0cm) PWs 2.5 (0.8-1.2cm) LVEF(%) 67.7 (>50%) FS (%) 37.3 % SV 50.5 ml CO 5.5 L/min Aortic Valve AoV Peak Lizandro. 204.4 cm/s AO Peak GR. 16.7 mmHg AI P 1/2 Time 512 ms Tricuspid Valve TR P. Velocity 195 cm/s RAP ESTIMATE 10 mmHg TR Peak Gr. 15 mmHg RVSP 25 mmHg LEFT VENTRICLE Normal LV size and function. Moderate concentric hypertrophy. Overall LVEF is 65-70%. RIGHT VENTRICLE Unchanged from previous echo. ATRIA Unchanged from previous echo. Atrial septal aneurysm is present. Saline study was performed with 3 IV injections of 10 ccs of agitated normal saline at rest, with cough, and with valsalva. Negative saline study for right to left flow. AORTIC VALVE Moderate aortic regurgitation, Unchanged from previous echo. MITRAL VALVE Unchanged from previous echo. TRICUSPID VALVE Unchanged from previous echo. PERICARDIUM Normal pericardium. No effusion. Conclusion Overall LVEF is 65-70%. Normal LV size and function. Moderate concentric hypertrophy. Unchanged from previous echo. Atrial septal aneurysm is present. Saline study was performed with 3 IV injections of 10 ccs of agitated normal saline at rest, with cough, and with valsalva. Negative saline study for right to left flow. Moderate aortic regurgitation, Unchanged from previous echo. Unchanged from previous echo. Unchanged from previous echo. Normal pericardium. No effusion.
[2025-09-01 21:43] LABS: MEAN PLATELET VOLUME 8.2 FL (7.4-10.4); RED CELL DISTRIBUTION WIDTH 26.9 % (11.5-14.5)
[2025-09-02 02:00] VITALS: BP 166/68; PULSE 70; RESP 19; TEMP 97.6; O2SAT 99
[2025-09-02 04:09] LABS: MEAN PLATELET VOLUME 8.3 FL (7.4-10.4); RED CELL DISTRIBUTION WIDTH 26.6 % (11.5-14.5)
[2025-09-02 04:25] LABS: PLATELET ESTIMATE NORMAL
[2025-09-02] MEDS: MESSAGE TO NURSING IV ONE (04:55)
--- NOTE | 2025-09-02 05:58 | RADIOLOGY REPORT ---
[facility]: MR MRI HEAD INDICATION: TIA , with out contrast COMPARISON: CT CTA NECK/HEAD on DOS: 08/31/25, CT CT HEAD on DOS: 08/31/25 TECHNIQUE: Multiplanar, multisequence magnetic resonance imaging of the brain was performed without the use of intravenous contrast. FINDINGS: Restricted diffusion in the left frontal parietal lobe, consistent with a left MCA infarct. There is periventricular/deep white matter T2/FLAIR hyperintensity is nonspecific, but most commonly associated with chronic microvascular disease. The ventricles and sulci are normal in size for age. Clear basal cisterns. Flow voids in the major intracranial vessels are maintained. No abnormality of the orbits. Paranasal sinuses and mastoid air cells are clear. No abnormality of the visualized osseous structures and extracranial soft tissues. IMPRESSION: Restricted diffusion in the left frontal parietal lobe, consistent with a left MCA infarct.
[2025-09-02 06:00] VITALS: BP 128/47; PULSE 64; RESP 16; TEMP 98.2; O2SAT 95
[2025-09-02 06:22] LABS: CREATININE 1.07 MG/DL (0.60-1.10); TOTAL CARBON DIOXIDE 26.3 MMOL/L (24-32); eCRCL 60 ML/MIN; eGFR 69 ML/MIN
--- NOTE | 2025-09-02 07:36 | [facility] CONSULT REPORT ---
[facility] Procedure Note [facility] Procedure Note Consult [facility] Note # Demographics Consult Type: General Neurology Patient Location: Inpatient First Name: Mulu Last Name: Mariam Date of : 1960 Age: 65 Gender: Male Facility: [facility] Time of Initial Page (): 09/02/2025 07:23 First Contact with Site (): 09/02/2025 07:23 Phone Only Consult: 65-year-old male with a history of atrial fibrillation (not on anticoagulation) and recent hospitalization for gastrointestinal bleeding requiring endoscopy and transfusion of 2 units who presented on 08/31/2025 with acute confusion and right-hand sensory loss. The patient came to the emergency department due to acute confusion, right-hand sensory loss, and difficulty swallowing. These symptoms lasted for approximately 2-3 hours and then resolved completely. By the time he arrived at the emergency department, all symptoms had completely resolved. He was evaluated by [facility], who recommended admission for a stroke workup. Neurology was called back today because of MRI findings. CT head showed no acute findings. MRI brain revealed left frontal parietal lobe infarct. I discussed the case with Dr. Hilton. Given the recent GI bleeding, patient would not be a candidate for anticoagulation. He states that patient can be on ASA 81 mg daily instead. This is reasonable for now given the recent GI bleeding. He should be evaluated by GI at some point to clear him to be placed back on anticoagulation for secondary stroke prevention for his Afib. Patient should get a TTE as well before discharge. Phone Agreement: - phone consult deemed mutually sufficient for patient care # Data Time Head CT personally read by me (): 09/02/2025 07:[address]: - no bleed - per radiologist read Time CTA personally reviewed by me (): 09/02/2025 07:32 CTA Head: - no large vessel occlusion - per radiologist read MRI: - acute ischemia - per radiologist read # Assessment Impression: - Ischemic Stroke (Acute) # Plan Other: - If patient has any neurological deterioration please call me back immediately # Logistics Attestation of consult completion: The patient is located at: [facility]. I performed this phone consultation from my offsite office Total time spent in telemedicine encounter: I spent 10 minutes in reviewing clinical data and/or imaging, obtaining history, communicating with the onsite care team, and in preparation of this report. # Demographics First Name: Mulu Last Name: [facility] Facility: [facility] Neuro Consult Order placed for: Yes LIZETT RAGSDALE MD Sep 02, 2025 07:36
[2025-09-02 08:00] VITALS: BP_SYST 152; BP_SYST 154; BP_SYST 159; BP_DIAS 58; BP_DIAS 59; BP_DIAS 60; PULSE 72; PULSE 74; PULSE 75; RESP 16; O2SAT 95
[2025-09-02 09:03] LABS: CHOL/HDL RATIO 3.6 (0.00-4.99); LDL CHOLESTEROL 64 MG/DL (50-100)
[2025-09-02 10:00] VITALS: BP 159/59; PULSE 92; RESP 14; TEMP 98.1; O2SAT 100
[2025-09-02 10:40] LABS: MEAN PLATELET VOLUME 8.6 FL (7.4-10.4)
[2025-09-02 10:57] LABS: RED CELL DISTRIBUTION WIDTH 26.5 % (11.5-14.5)
[2025-09-02] MEDS ORDERED: ASPI-1265 PO (14:27)
[2025-09-02] MEDS ORDERED: FURO20TA4 PO (14:27)
--- NOTE | 2025-09-02 20:34 | DISCHARGE SUMMARY-Residence ---
Discharge Summary Providers to CC Resident Creating Document: YOANMATIASBrynaSILVERIO, RES ~ Discharge Summary Admission Diagnosis: Suspected Stroke, Anemia Hospital Course DATE OF ADMISSION: 08/31/2025 DATE OF DISCHARGE: 09/02/2025 Discharge Diagnosis\Comment: left frontal parietal lobe ischemic stroke Atrial fibrillation Operations\Procedures: None Consultants: Tele neurology Complications: None Condition on DC: Stable New Medications: Aspirin (Aspirin) 81 Mg Tab.chew 1 TAB PO DAILY for 30 Days, #30 TAB.CHEW Furosemide (Furosemide) 20 Mg Tablet 20 MG PO DAILY for 30 Days, #30 TAB Continued Medications: Amlodipine Besylate (Amlodipine Besylate) 10 Mg Tablet 1 TAB PO DAILY Atorvastatin Calcium (Atorvastatin Calcium) 20 Mg Tablet 1 TAB PO HS, TAB Diltiazem HCl (Diltiazem 24Hr ER) 120 Mg Cap.er.24h 1 CAP PO QAM Insulin Glargine,Hum.rec.anlog (Basaglar Kwikpen U-100) 100 Unit/1 Ml Insuln.pen 25 UNITS SQ HS Iron Polysaccharides Complex (Ferrex 150) 150 Mg Iron Capsule 150 MG PO DAILY for 30 Days, #30 CAP Metformin HCl (Metformin HCl) 1,000 Mg Tablet 1 TAB PO BIDBD Pantoprazole Sodium (PROTONIX tablet) 40 Mg Tablet.dr 1 TAB PO BID Semaglutide (Ozempic) 0.25 Mg/0.368 Ml Pen.injctr Discharge Summary: History of present illness A 65-year-old male with a history of atrial fibrillation (not on anticoagulation) and recent hospitalization for gastrointestinal bleeding treated with endoscopy and transfusion of 2 units presents to the ER accompanied by his daughter due to acute onset confusion and right-hand sensory loss. According to the daughter, while having breakfast this morning, the patient developed difficulty swallowing, speech changes, right-hand numbness, and imbalance; the episode lasted 23 hours and then resolved. He denies vision changes or lower extremity weakness. The patient does not speak Arabic; his Mien-speaking daughter reports that his baseline is normal. Additionally, the patient endorses shortness of breath with paroxysmal nocturnal dyspnea and orthopnea but denies palpitations or pedal edema. Hospital course This 65 years old male with history of AFib he is not on any anticoagulation recently discharged from the [facility] with upper gastrointestinal bleeding with endoscopy showing no evidence of bleeding. Today the patient is admitted with symptoms of difficulty swallowing, speech changes and right hand numbness for a transient period of 3 hours, patient underwent CT imaging initial which did not show any intracranial hemorrhage and patient received a dose of aspirin in ED, as the patient has a high risk of GI bleed we started heparin drip per protocol and we monitored his hemoglobin closely throughout the drip. And patient will also started on Lasix 20 mg because of his shortness of breath On the day of discharge patient MRI shows left MCA stroke in frontoparietal region, tele neurology was consulted and he recommended continuation of aspirin for at least 2 weeks and then after that in he recommended to start Eliquis for his AFib which might be the primary reason for embolic stroke. Today patient was examined at bedside and he reported improvement in symptoms and PT evaluated and patient is fit for discharge Vital Signs Date Time Temp Pulse Resp B/P (MAP) Pulse Ox O2 Delivery O2 Flow Rate FiO2 09/02/25 10:00 98.1 92 14 159/59 (92) 100 Room Air 08/31/25 14:19 0 Laboratory Tests Test 08/31/25 20:43 09/01/25 01:04 09/01/25 07:06 09/01/25 07:26 Glucometer 170 mg/dl 194 mg/dl White Blood Count 8.4 X10'3 8.2 X10'3 Red Blood Count 4.87 X10'6 4.71 X10'6 Hemoglobin 9.8 g/dl 9.0 g/dl Hematocrit 31.0 % 30.4 % Mean Corpuscular Volume 63.6 FL 64.5 FL Mean Corpuscular Hemoglobin 20.1 PG 19.2 PG Mean Corpuscular Hemoglobin Concent 31.6 g/dL 29.8 g/dL Red Cell Distribution Width 26.3 % 26.6 % Platelet Count 391 X10'3 399 X10'3 Mean Platelet Volume 8.2 FL 8.3 FL Neutrophils (%) (Auto) 70.1 % Lymphocytes (%) (Auto) 19.5 % Monocytes (%) (Auto) 8.1 % Eosinophils (%) (Auto) 1.9 % Basophils (%) (Auto) 0.4 % Neutrophils # (Auto) 5.9 X10'3 Lymphocytes # (Auto) 1.6 X10'3 Monocytes # (Auto) 0.7 X10'3 Eosinophils # (Auto) 0.2 X10'3 Basophils # (Auto) 0.0 X10'3 CBC Comment Platelet Estimate Normal Red Blood Cell Morphology Perf Hypochromasia 1+ Poikilocytosis 2+ Basophilic Stippling Anisocytosis 3+ Microcytosis 2+ Elliptocytes 2+ Acanthocytes Schistocytes Few Sodium Level 141 MMOL/L Potassium Level 3.6 MMOL/L Chloride Level 107 MMOL/L Carbon Dioxide Level 25.9 MMOL/L Anion Gap 8 Blood Urea Nitrogen 14 MG/DL Creatinine 0.90 MG/DL Estimated GFR/1.73 m2 85 ML/MIN BUN/Creatinine Ratio 15.6 Glucose Level 187 MG/DL Calcium Level 9.1 MG/DL Total Bilirubin 0.5 MG/DL Aspartate Amino Transf (AST/SGOT) 16 U/L Alanine Aminotransferase (ALT/SGPT) 24 U/L Alkaline Phosphatase 106 IU/L Total Protein 7.4 G/DL Albumin 3.2 G/DL Globulin 4.2 G/DL Albumin/Globulin Ratio 0.8 Chemistry Comments Hematology Comments Test 09/01/25 08:35 09/01/25 11:19 09/01/25 11:59 09/01/25 13:57 Prothrombin Time 11.1 SECONDS INR International Normalized Ratio 1.1 INR Activated Partial Thromboplast Time 27 SECONDS Coagulation Comments Stool Occult Blood Negative Glucometer 178 mg/dl White Blood Count 8.6 X10'3 Red Blood Count 4.47 X10'6 Hemoglobin 8.7 g/dl Hematocrit 29.2 % Mean Corpuscular Volume 65.4 FL Mean Corpuscular Hemoglobin 19.6 PG Mean Corpuscular Hemoglobin Concent 29.9 g/dL Red Cell Distribution Width 26.8 % Platelet Count 402 X10'3 Mean Platelet Volume 8.2 FL Hematology Comments APTT (Heparin Protocol) 30 SECONDS Test 09/01/25 17:10 09/01/25 20:42 09/01/25 21:34 09/02/25 03:30 Glucometer 172 mg/dl 158 mg/dl White Blood Count 9.6 X10'3 10.9 X10'3 Red Blood Count 4.39 X10'6 4.45 X10'6 Hemoglobin 8.4 g/dl 8.6 g/dl Hematocrit 28.1 % 28.4 % Mean Corpuscular Volume 64.0 FL 64.0 FL Mean Corpuscular Hemoglobin 19.2 PG 19.3 PG Mean Corpuscular Hemoglobin Concent 30.0 g/dL 30.2 g/dL Red Cell Distribution Width 26.9 % 26.6 % Platelet Count 361 X10'3 381 X10'3 Mean Platelet Volume 8.2 FL 8.3 FL Hematology Comments APTT (Heparin Protocol) 47 SECONDS Coagulation Comments Neutrophils (%) (Auto) 76.6 % Lymphocytes (%) (Auto) 13.3 % Monocytes (%) (Auto) 8.4 % Eosinophils (%) (Auto) 1.4 % Basophils (%) (Auto) 0.3 % Neutrophils # (Auto) 8.3 X10'3 Lymphocytes # (Auto) 1.5 X10'3 Monocytes # (Auto) 0.9 X10'3 Eosinophils # (Auto) 0.2 X10'3 Basophils # (Auto) 0.0 X10'3 CBC Comment Platelet Estimate Normal Red Blood Cell Morphology Perf Basophilic Stippling Anisocytosis 3+ Microcytosis 2+ Target Cells Few Test 09/02/25 04:19 09/02/25 06:59 09/02/25 10:03 09/02/25 12:19 Sodium Level 140 MMOL/L Potassium Level 3.9 MMOL/L Chloride Level 106 MMOL/L Carbon Dioxide Level 26.3 MMOL/L Anion Gap 8 Blood Urea Nitrogen 22 MG/DL Creatinine 1.07 MG/DL Estimated GFR/1.73 m2 69 ML/MIN BUN/Creatinine Ratio 20.6 Glucose Level 141 MG/DL Calcium Level 9.4 MG/DL Total Bilirubin 0.6 MG/DL Aspartate Amino Transf (AST/SGOT) 14 U/L Alanine Aminotransferase (ALT/SGPT) 26 U/L Alkaline Phosphatase 104 IU/L Total Protein 7.3 G/DL Albumin 3.2 G/DL Globulin 4.1 G/DL Albumin/Globulin Ratio 0.8 Triglycerides Level 70 MG/DL Cholesterol Level 105 MG/DL LDL Cholesterol 64 MG/DL HDL Cholesterol 29 MG/DL Cholesterol/HDL Ratio 3.6 Chemistry Comments Glucometer 159 mg/dl 215 mg/dl White Blood Count 9.5 X10'3 Red Blood Count 4.30 X10'6 Hemoglobin 8.5 g/dl Hematocrit 28.1 % Mean Corpuscular Volume 65.5 FL Mean Corpuscular Hemoglobin 19.8 PG Mean Corpuscular Hemoglobin Concent 30.2 g/dL Red Cell Distribution Width 26.5 % Platelet Count 389 X10'3 Mean Platelet Volume 8.6 FL Hematology Comments Imaging at hospital Echocardiogram-shows LVEF is 65-70%., RVSP 25 mmHg Chest [id number] and mild pulmonary vascular congestion. CT head-ruled out intracranial hemorrhage Head CTA-No acute CTA abnormality of the major head and neck arterial vasculature.2.8 cm left thyroid nodule MRI of the head-showsRestricted diffusion in the left frontal parietal lobe, consistent with a left MCA infarct. Discharge instructions- Follow up with PCP in 2 weeks. Follow up with nuerologist in 2 weeks. Continue to take aspirin 81 mg for 2 weeks. 2 weeks later stop aspirin and start eliquis 5mg BID. Repeat CBC weekly for 2 to 3 weeks to monitor for GI bleed. Call 911 or return to ER in case of change in vision, speech, weakness or se nsory changes. Also monitor for any dark black stools or bleeding per rectum. *Problems/Diagnosis: (1) Ischemic stroke of frontal lobe Total Time Spent on D/C: Up to 30 Minutes Date of Service: Sep 02, 2025 Billing Provider: KAILEY HUMPHREY MD Common Visit Codes: 41629-ANR/OBS DISCH DAY >30min SILVERIO DUMONT, RES Sep 02, 2025 20:32 KAILEY HUMPHREY MD Sep 03, 2025 07:19
== END 2025-09-02 15:23 | disposition home or self-care (01) | DRG 65 ==
LOC: ER 10:55 → ED HOLD 13:39 → ORTHO 4S 14:43
PROVIDERS: ADMIT Internal Medicine; ATTEND Internal Medicine
PROC: B3251ZZ Computerized Tomography (CT Scan) of Bilateral Common Carotid Arteries using Low Osmolar Contrast (ICD-10-PCS; principal; 2025-08-31)
PROC: B32G1ZZ Computerized Tomography (CT Scan) of Bilateral Vertebral Arteries using Low Osmolar Contrast (ICD-10-PCS; 2025-08-31)
PROC: B32R1ZZ Computerized Tomography (CT Scan) of Intracranial Arteries using Low Osmolar Contrast (ICD-10-PCS; 2025-08-31)
PROC: B3281ZZ Computerized Tomography (CT Scan) of Bilateral Internal Carotid Arteries using Low Osmolar Contrast (ICD-10-PCS; 2025-08-31)
DX: I63.10 Cerebral infarction due to embolism of unspecified precerebral artery (principal); I50.30 Unspecified diastolic (congestive) heart failure; R47.01 Aphasia; D50.9 Iron deficiency anemia, unspecified; I11.0 Hypertensive heart disease with heart failure; E04.1 Nontoxic single thyroid nodule; E11.9 Type 2 diabetes mellitus without complications; I48.91 Unspecified atrial fibrillation; E78.00 Pure hypercholesterolemia, unspecified; K21.9 Gastro-esophageal reflux disease without esophagitis; Z86.73 Personal history of transient ischemic attack (TIA), and cerebral infarction without residual deficits; Z87.11 Personal history of peptic ulcer disease; Z79.4 Long term (current) use of insulin
CPT/HCPCS: 36415; 70450; 70496; 70498; 70551; 71045; 80048; 80053; 80061; 80305; 80320; 81001; 82140; 82272; 82728; 82948; 83540; 83550; 83605; 83735; 83880; 84145; 84439; 84443; 85008; 85025; 85027; 85610; 85730; 87040; 88305; 88342; 93005; 93308; 97110; 97116; 97162; 97530; 99285; G0378; J1644; J1815; J2470; J2916; Q9967